=== PATIENT | male | born 1985 | race Caucasian/White ===

== ENCOUNTER 2016-03-12 12:57 | Inpatient (IN) | payer OTHER ==
[~2016-03-12] VITALS: Ht 180.3 cm; Wt 127.7 kg
[2016-03-12 12:55] VITALS: O2SAT 97
[2016-03-12] MEDS ORDERED: MORPHINE SULFATE 8 MG/ML INJ ONE ×2 (13:04→15:01)
[2016-03-12] MEDS ORDERED: ONDANSETRON HCL 4 MG/2 ML VIAL ONE (13:05)
[2016-03-12] MEDS ORDERED: DIPHTH/TETANUS/ACEL PERTUSSIS (BOOSTER) 0.5 ML VIAL/PFS IM ONE (13:05)
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
[2016-03-12 13:29] LABS: I-STAT POTASSIUM 4.2 MMOL/L (3.5-4.9)
[2016-03-12] MEDS ORDERED: SODIUM CHLOR 0.9% 1000 ML INJ 1,000 ML IV SCH (13:31)
[2016-03-12] MEDS ORDERED: ACETAMINOPHEN 325 MG TAB PO PRN (13:45)
[2016-03-12] MEDS ORDERED: ENALAPRILAT 1.25 MG/ML VIAL IV PRN (13:45)
[2016-03-12] MEDS ORDERED: ONDANSETRON HCL 4 MG/2 ML VIAL IV PRN (13:45)
[2016-03-12] MEDS ORDERED: CHLORHEXIDINE GLUCONATE 2 % 1 PACK (2 CLOTHS) TOP PRN (13:45)
[2016-03-12] MEDS ORDERED: SODIUM CHLORIDE 0.9% FLUSH 5 ML FLUSH IVF PRN (13:45)
[2016-03-12] MEDS ORDERED: MISCELLANEOUS NURSING INFORMATION XX SCH (13:45)
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
[2016-03-12] MEDS: PANTOPRAZOLE SODIUM 40 MG VIAL IVP SCH (14:00)
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
[2016-03-12] MEDS ORDERED: MIDAZOLAM HCL 5 MG/ML VIAL (1 ML) IV ONE (15:00)
[2016-03-12] MEDS ORDERED: MORPHINE SULFATE 8 MG/ML INJ IV PUSH ONE (15:00)
[2016-03-12] MEDS ORDERED: MIDAZOLAM HCL 5 MG/ML VIAL (1 ML) ONE (15:01)
--- NOTE | 2016-03-12 15:13 | HHI.HP ---
General Surgery H&P H&P dictated Femi Mcdaniel MD Mar 12, 2016 15:13
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
[2016-03-12] MEDS ORDERED: IOHEXOL 350 MG/ML 10 ML VIAL (for RAD DIAG) IV ONE (15:52)
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
[2016-03-12 16:00] VITALS: PULSE 64
[2016-03-12] MEDS ORDERED: SODIUM CHLOR 0.9% 1000 ML INJ 1,000 ML IV ONE ×2 (16:00)
[2016-03-12] MEDS: MULTIVITAMIN INJ 10 ML, THIAMINE INJ 100 MG, FOLIC ACID INJ 1 MG in SODIUM CHLORID 0.9%... IV SCH (16:00)
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
[2016-03-12] MEDS ORDERED: LORazepam 2 MG/ML VIAL IV PUSH PRN (16:30)
--- NOTE | 2016-03-12 16:38 | RADRPT ---
EXAM DATE/TIME: 03/12/2016 16:10 [facility] COMPARISON: CHEST SINGLE AP, March 12, 2016, 12:51. INDICATIONS : Central line placement. MEDICAL HISTORY : None. SURGICAL HISTORY : None. ENCOUNTER: Initial ACUITY: 1 day PAIN SCORE: Non-responsive. LOCATION: Bilateral chest FINDINGS: Interval placement of left subclavian catheter with the tip projected at the cavoatrial junction. No evidence of pneumothorax on this supine film. The lungs are symmetrically aerated and clear. The h eart is normal size. CONCLUSION: Central line in good position. No evidence of pneumothorax. Seb Jarvis MD on March 12, 2016 at 16:36 Board Certified Radiologist. This report was verified electronically.
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
[2016-03-12] MEDS ORDERED: fentaNYL DRIP 250 ML IV PRN (16:45)
[2016-03-12] MEDS: THIAMINE INJ 100 MG in SODIUM CHLORIDE 0.9% INJ 100 ML IV SCH (16:45)
[2016-03-12] MEDS: SODIUM CHLOR 0.9% 1000 ML INJ 1,000 ML IV SCH (17:00)
[2016-03-12 18:00] VITALS: PULSE 75
[2016-03-12] MEDS: DEXMEDETOMIDINE INJ 50 ML IV PRN ×3 (18:02→20:17)
[2016-03-12] MEDS ORDERED: KETOROLAC TROMETHAMINE 30 MG/ML (IVP) VIAL IV PUSH SCH (18:30)
[2016-03-12 18:51] LABS: AUTOMATED NEUTROPHIL # 8.9 TH/MM3 (1.8-7.7); BASOPHIL % 0.4 % (0.0-2.0); EOSINOPHIL # 0.1 TH/MM3 (0-0.4); EOSINOPHIL % 0.6 % (0.0-4.0); HEMATOCRIT 41.8 % (39.0-51.0); HEMO FLAGS DIFF FINAL; LYMPH % 19.7 % (9.0-44.0); LYMPHOCYTE # 2.4 TH/MM3 (1.0-4.8); MEAN CELL VOLUME 91.3 FL (80.0-100.0); MEAN CORPUSCULAR HEMOGLOBIN 30.8 PG (27.0-34.0); MEAN CORPUSCULAR HGB CONC 33.7 % (32.0-36.0); MONO % 7.7 % (0.0-8.0); NEUT % 71.6 % (16.0-70.0); PLATELET COUNT 190 TH/MM3 (150-450); RED BLOOD COUNT 4.58 MIL/MM3 (4.50-5.90); RED CELL DISTRIBUTION WIDTH 13.1 % (11.6-17.2); WHITE BLOOD COUNT 12.4 TH/MM3 (4.0-11.0)
[2016-03-12 19:11] LABS: APTT (PATIENT) 25.5 SEC (24.3-30.1); PROTHROMBIN TIME - PATIENT 10.8 SEC (9.8-11.6)
[2016-03-12 19:20] LABS: AMPHETAMINE, URINE NEG (NEG); BARBITURATES, URINE NEG (NEG); COCAINE, URINE NEG (NEG)
[2016-03-12 20:00] VITALS: PULSE 70
[2016-03-12] MEDS: DOCUSATE SODIUM 100 MG CAP PO SCH (20:16)
[2016-03-12] MEDS: CYCLOBENZAPRINE HCL 10 MG TAB PO SCH (20:16)
[2016-03-12 20:52] VITALS: O2SAT 93
[2016-03-12 22:00] VITALS: PULSE 66
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
[2016-03-13] VITALS (14 sets, daily range): BP systolic 116; BP diastolic 59; PULSE 48–70; RESP 24; TEMP 98.3; O2SAT 97–98
[2016-03-13] MEDS: SODIUM CHLOR 0.9% 1000 ML INJ 1,000 ML IV SCH ×3 (03:00→20:24)
[2016-03-13] MEDS: CHLORHEXIDINE GLUCONATE 2 % 1 PACK (2 CLOTHS) TOP SCH (03:20)
[2016-03-13] MEDS: CYCLOBENZAPRINE HCL 10 MG TAB PO SCH ×3 (04:06→20:22)
[2016-03-13 05:33] LABS: AUTOMATED NEUTROPHIL # 6.6 TH/MM3 (1.8-7.7); BASOPHIL % 0.5 % (0.0-2.0); EOSINOPHIL % 0.4 % (0.0-4.0); HEMATOCRIT 42.9 % (39.0-51.0); HEMO FLAGS DIFF FINAL; LYMPH % 23.5 % (9.0-44.0); LYMPHOCYTE # 2.3 TH/MM3 (1.0-4.8); MEAN CELL VOLUME 90.2 FL (80.0-100.0); MEAN CORPUSCULAR HEMOGLOBIN 31.7 PG (27.0-34.0); MEAN CORPUSCULAR HGB CONC 35.1 % (32.0-36.0); MONO % 9.6 % (0.0-8.0); PLATELET COUNT 174 TH/MM3 (150-450); RED BLOOD COUNT 4.76 MIL/MM3 (4.50-5.90)
[2016-03-13 05:44] LABS: ALKALINE PHOSPHATASE 57 U/L (45-117); ALT (GPT) 23 U/L (12-78); ANION GAP 6 MEQ/L (5-15); AST (GOT) 44 U/L (15-37); BICARBONATE 27.2 MEQ/L (21.0-32.0); BLOOD UREA NITROGEN 11 MG/DL (7-18); CHLORIDE 108 MEQ/L (98-107); GLOMERULAR FILTRATION RATE 54 ML/MIN (>89); POTASSIUM 4.1 MEQ/L (3.5-5.1); SODIUM (NA) 141 MEQ/L (136-145); TOTAL BILIRUBIN ADULT 0.7 MG/DL (0.2-1.0)
--- NOTE | 2016-03-13 06:04 | RADRPT ---
EXAM DATE/TIME: 03/13/2016 05:21 [facility] COMPARISON: CHEST SINGLE AP, March 12, 2016, 16:10. INDICATIONS : Shortness of breath, possible pulmonary disease. MEDICAL HISTORY : None. SURGICAL HISTORY : None. ENCOUNTER: Subsequent ACUITY: 2 days PAIN SCORE: Non-responsive. LOCATION: Bilateral chest FINDINGS: A single view of the chest demonstrates the lungs to be symmetrically aerated without evidence of mas s, infiltrate or effusion. The cardiomediastinal contours are unremarkable. Osseous structures are intact. Left subclavian central venous catheter tip overlies the expected location of the SVC. CONCLUSION: No acute disease. Tien Doe MD on March 13, 2016 at 6:02 Board Certified Radiologist. This report was verified electronically.
[2016-03-13] MEDS: DOCUSATE SODIUM 100 MG CAP PO SCH ×2 (11:07→20:22)
[2016-03-13] MEDS: KETOROLAC TROMETHAMINE 30 MG/ML (IVP) VIAL IV PUSH SCH ×2 (11:09→17:55)
[2016-03-13] MEDS: THIAMINE INJ 100 MG in SODIUM CHLORIDE 0.9% INJ 100 ML IV SCH (11:09)
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
[2016-03-13] MEDS: PANTOPRAZOLE SODIUM 40 MG VIAL IVP SCH (13:04)
[2016-03-13] MEDS: GABAPENTIN 300 MG CAP PO SCH ×2 (13:04→17:55)
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
--- NOTE | 2016-03-13 14:46 | HHI.GIFU ---
Objective Vitals I&O Vital Signs Date Time Temp Pulse Resp B/P Pulse Ox O2 Delivery O2 Flow Rate FiO2 03/13/16 14:00 55 03/13/16 12:00 52 03/13/16 10:00 70 03/13/16 08:00 48 03/13/16 07:00 99 Room Air 03/13/16 06:00 52 03/13/16 04:00 58 03/13/16 02:00 58 03/13/16 00:00 62 03/12/16 22:00 66 03/12/16 20:52 93 Nasal Cannula 6.00 03/12/16 20:00 70 03/12/16 19:00 98 Room Air 03/12/16 18:00 75 03/12/16 16:00 64 I/O 03/12/16 03/12/16 03/12/16 03/13/16 03/13/16 03/13/16 07:00 15:00 23:00 07:00 15:00 23:00 Intake Total 2730 ml 939 ml 1861 ml Output Total 800 ml 650 ml 900 ml Balance 1930 ml 289 ml 961 ml Intake Oral 100 ml 350 ml 1200 ml IV Total 2630 ml 589 ml 661 ml Output Urine Total 800 ml 650 ml 900 ml # Voids 1 # Bowel Movements 0 0 0 Laboratory Laboratory Tests Test 03/12/16 03/12/16 03/12/16 03/12/16 16:00 17:30 19:45 19:47 Urine Opiates Screen NEG Urine Barbiturates Screen NEG Urine Amphetamines Screen NEG Urine Benzodiazepines Screen NEG Urine Cocaine Screen NEG Urine Cannabinoids Screen POS White Blood Count 12.4 Red Blood Count 4.58 Hemoglobin 14.1 Hematocrit 41.8 Mean Corpuscular Volume 91.3 Mean Corpuscular Hemoglobin 30.8 Mean Corpuscular Hemoglobin 33.7 Concent Red Cell Distribution Width 13.1 Platelet Count 190 Mean Platelet Volume 8.7 Neutrophils (%) (Auto) 71.6 Lymphocytes (%) (Auto) 19.7 Monocytes (%) (Auto) 7.7 Eosinophils (%) (Auto) 0.6 Basophils (%) (Auto) 0.4 Neutrophils # (Auto) 8.9 Lymphocytes # (Auto) 2.4 Monocytes # (Auto) 1.0 Eosinophils # (Auto) 0.1 Basophils # (Auto) 0.0 CBC Comment DIFF FINAL Differential Comment Prothrombin Time 10.8 Prothromb Time International 1.0 Ratio Activated Partial 25.5 Thromboplast Time Blood Type A POSITIVE Antibody Screen NEGATIVE Nasal Screen MRSA (PCR) NEGATIVE Test 03/13/16 03/13/16 05:08 13:32 White Blood Count 10.0 Red Blood Count 4.76 Hemoglobin 15.1 Hematocrit 42.9 Mean Corpuscular Volume 90.2 Mean Corpuscular Hemoglobin 31.7 Mean Corpuscular Hemoglobin 35.1 Concent Red Cell Distribution Width 13.0 Platelet Count 174 Mean Platelet Volume 8.6 Neutrophils (%) (Auto) 66.0 Lymphocytes (%) (Auto) 23.5 Monocytes (%) (Auto) 9.6 Eosinophils (%) (Auto) 0.4 Basophils (%) (Auto) 0.5 Neutrophils # (Auto) 6.6 Lymphocytes # (Auto) 2.3 Monocytes # (Auto) 1.0 Eosinophils # (Auto) 0.0 Basophils # (Auto) 0.0 CBC Comment DIFF FINAL Differential Comment Sodium Level 141 Potassium Level 4.1 Chloride Level 108 Carbon Dioxide Level 27.2 Anion Gap 6 Blood Urea Nitrogen 11 Creatinine 1.16 Estimat Glomerular Filtration 54 Rate Random Glucose 90 Calcium Level 8.0 Total Bilirubin 0.7 Aspartate Amino Transf 44 (AST/SGOT) Alanine Aminotransferase 23 (ALT/SGPT) Alkaline Phosphatase 57 Total Protein 6.6 Albumin 3.4 Carcinoembryonic Antigen 0.4 Assessment and Plan Physician Comments seen, examined full consult dictated colonoscopy will be scheduled next week patient would like to wait until he can get out of bed and can ambulate to go to the bathroom Phuong Segovia MD Mar 13, 2016 14:46 Assessment and Plan Physician Comments seen, examined colonoscopy will be scheduled next week patient would like to wait until he can get out of bed and can ambulate to go to the bathroom Phuong Segovia MD Mar 13, 2016 14:46
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
[2016-03-13] MEDS: MULTIVITAMIN INJ 10 ML, THIAMINE INJ 100 MG, FOLIC ACID INJ 1 MG in SODIUM CHLORID 0.9%... IV SCH (16:43)
--- NOTE | 2016-03-13 18:01 | EKG ---
Date Performed: 03/13/2016 Time Performed: 12:16:54 PTAGE: 89 years EKG: Sinus bradycardia. Normal ECG except for rate NO PREVIOUS TRACING DOCTOR: Perry Narayanan Interpretating Date/Time 03/13/2016 17:59:09
[2016-03-13] MEDS: HYDROmorphone HCL PF 1 MG/ML VIAL IV PUSH PRN (20:40)
[2016-03-14] VITALS (8 sets, daily range): BP systolic 105–122; BP diastolic 56–63; PULSE 49–65; RESP 11–18; TEMP 96.5–98.4; O2SAT 97–99
[2016-03-14] MEDS: CHLORHEXIDINE GLUCONATE 2 % 1 PACK (2 CLOTHS) TOP SCH (01:28)
[2016-03-14] MEDS: CYCLOBENZAPRINE HCL 10 MG TAB PO SCH ×3 (04:05→20:01)
[2016-03-14] MEDS: HYDROmorphone HCL PF 1 MG/ML VIAL IV PUSH PRN ×7 (04:20→21:33)
[2016-03-14 04:36] LABS: AUTOMATED NEUTROPHIL # 3.8 TH/MM3 (1.8-7.7); BASOPHIL % 0.6 % (0.0-2.0); EOSINOPHIL # 0.1 TH/MM3 (0-0.4); EOSINOPHIL % 1.8 % (0.0-4.0); HEMATOCRIT 41.7 % (39.0-51.0); HEMO FLAGS DIFF FINAL; LYMPHOCYTE # 2.3 TH/MM3 (1.0-4.8); MEAN CELL VOLUME 90.9 FL (80.0-100.0); MEAN CORPUSCULAR HEMOGLOBIN 31.1 PG (27.0-34.0); MEAN CORPUSCULAR HGB CONC 34.2 % (32.0-36.0); MONO % 11.8 % (0.0-8.0); NEUT % 53.8 % (16.0-70.0); PLATELET COUNT 155 TH/MM3 (150-450); RED BLOOD COUNT 4.58 MIL/MM3 (4.50-5.90); RED CELL DISTRIBUTION WIDTH 13.3 % (11.6-17.2); WHITE BLOOD COUNT 7.1 TH/MM3 (4.0-11.0)
[2016-03-14 04:50] LABS: ALT (GPT) 21 U/L (12-78); ANION GAP 4 MEQ/L (5-15); AST (GOT) 26 U/L (15-37); BICARBONATE 27.6 MEQ/L (21.0-32.0); BLOOD UREA NITROGEN 20 MG/DL (7-18); CHLORIDE 108 MEQ/L (98-107); GLOMERULAR FILTRATION RATE 54 ML/MIN (>89); POTASSIUM 4.1 MEQ/L (3.5-5.1); SODIUM (NA) 140 MEQ/L (136-145)
[2016-03-14 04:52] LABS: ALKALINE PHOSPHATASE 51 U/L (45-117); TOTAL BILIRUBIN ADULT 0.5 MG/DL (0.2-1.0)
[2016-03-14] MEDS: KETOROLAC TROMETHAMINE 30 MG/ML (IVP) VIAL IV PUSH SCH ×4 (05:26→17:26)
--- NOTE | 2016-03-14 05:39 | RADRPT ---
EXAM DATE/TIME: 03/14/2016 04:40 [facility] COMPARISON: CHEST SINGLE AP, March 13, 2016, 5:21. INDICATIONS : Shortness of breath, possible pulmonary disease. MEDICAL HISTORY : None. SURGICAL HISTORY : None. ENCOUNTER: Subsequent ACUITY: 3 days PAIN SCORE: Non-responsive. LOCATION: Bilateral chest FINDINGS: No infiltrate, effusion or pneumothorax seen. Heart size stable, upper limits of normal. Left subclavian central venous catheter again seen, tip in the superior vena cava. CONCLUSION: No change. Chas Pak MD on March 14, 2016 at 5:37 Board Certified Radiologist. This report was verified electronically.
[2016-03-14] MEDS: GABAPENTIN 300 MG CAP PO SCH ×3 (08:56→17:25)
[2016-03-14] MEDS: DOCUSATE SODIUM 100 MG CAP PO SCH ×2 (08:57→20:00)
[2016-03-14] MEDS: THIAMINE INJ 100 MG in SODIUM CHLORIDE 0.9% INJ 100 ML IV SCH (08:58)
[2016-03-14] MEDS: SODIUM CHLOR 0.9% 1000 ML INJ 1,000 ML IV SCH (08:59)
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
[2016-03-14] MEDS ORDERED: oxyCODONE/ACETAMINOPHEN 5 MG/325 MG TAB PO PRN (11:15)
[2016-03-14] MEDS: oxyCODONE/ACETAMINOPHEN 5 MG/325 MG TAB PO PRN ×3 (11:19→20:01)
[2016-03-14] MEDS: HEPARIN SODIUM - SQ 10,000 UNITS/ML VIAL SQ SCH ×2 (14:41→22:50)
[2016-03-14] MEDS: MULTIVITAMIN INJ 10 ML, THIAMINE INJ 100 MG, FOLIC ACID INJ 1 MG in SODIUM CHLORID 0.9%... IV SCH (17:25)
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
--- NOTE | 2016-03-14 18:31 | RADRPT ---
EXAM DATE/TIME: 03/14/2016 17:53 [facility] COMPARISON: CT CERVICAL SPINE W/O CONTRAST, March 12, 2016, 13:18. INDICATIONS : Neck injury, evaluate fractured. MEDICAL HISTORY : None. SURGICAL HISTORY : None. ENCOUNTER: Initial ACUITY: 1 day PAIN SCORE: 10/10 LOCATION: C6 C7 region. FINDINGS: Lower cervical spine fractures seen on CT are not as well appreciated on plain film. The cervical spi ne is relatively normally aligned without motion seen on very limited flexion and extension. CONCLUSION: No vertebral body subluxation seen on limited flexion and extension. Keegan Licona MD on March 14, 2016 at 18:17 Board Certified Radiologist. This report was verified electronically.
[2016-03-14] MEDS: FAMOTIDINE 20 MG TAB PO SCH (20:01)
[2016-03-15] VITALS: BP 106/53; PULSE 48; RESP 17; TEMP 96.6; O2SAT 97
[2016-03-15] MEDS: KETOROLAC TROMETHAMINE 30 MG/ML (IVP) VIAL IV PUSH SCH ×4 (00:05→18:42)
[2016-03-15] MEDS: oxyCODONE/ACETAMINOPHEN 5 MG/325 MG TAB PO PRN ×3 (00:05→10:28)
[2016-03-15] MEDS: HYDROmorphone HCL PF 1 MG/ML VIAL IV PUSH PRN ×5 (02:28→20:19)
[2016-03-15] MEDS: CHLORHEXIDINE GLUCONATE 2 % 1 PACK (2 CLOTHS) TOP SCH (04:00)
[2016-03-15] MEDS: CYCLOBENZAPRINE HCL 10 MG TAB PO SCH ×3 (04:54→20:20)
[2016-03-15] MEDS: HEPARIN SODIUM - SQ 10,000 UNITS/ML VIAL SQ SCH ×3 (06:21→23:09)
[2016-03-15 08:00] VITALS: BP 117/72; PULSE 44; RESP 16; TEMP 95.8; O2SAT 100
[2016-03-15 10:27] VITALS: O2SAT 98
[2016-03-15] MEDS: GABAPENTIN 300 MG CAP PO SCH ×3 (10:27→18:41)
[2016-03-15] MEDS: DOCUSATE SODIUM 100 MG CAP PO SCH ×2 (10:27→20:20)
[2016-03-15] MEDS: THIAMINE INJ 100 MG in SODIUM CHLORIDE 0.9% INJ 100 ML IV SCH (10:27)
[2016-03-15] MEDS: MAGNESIUM HYDROXIDE SUSP 30 ML CUP PO PRN (10:28)
[2016-03-15 12:00] VITALS: BP 117/58; PULSE 55; RESP 17; TEMP 97.3; O2SAT 99
[2016-03-15] MEDS ORDERED: oxyCODONE/ACETAMINOPHEN 7.5 MG/325 MG TAB PO PRN (12:15)
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
[2016-03-15] MEDS ORDERED: LACTULOSE SYRUP 20 GM/30 ML CUP PO ONE (13:45)
[2016-03-15] MEDS: oxyCODONE/ACETAMINOPHEN 7.5 MG/325 MG TAB PO PRN ×3 (15:04→23:09)
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
[2016-03-15 16:00] VITALS: BP 126/61; PULSE 51; RESP 16; TEMP 97.4; O2SAT 100
--- NOTE | 2016-03-15 16:35 | RADRPT ---
EXAM DATE/TIME: 03/15/2016 16:06 [facility] COMPARISON: No previous studies available for comparison. INDICATIONS : Neck pain, evaluate C6 and C7 fractures in fexion and extension MEDICAL HISTORY : fracture C6, C7 SURGICAL HISTORY : None. ENCOUNTER: Subsequent ACUITY: 1 month PAIN SCORE: 10/10 LOCATION: Bilateral neck FINDINGS: Flexion and extension views of the cervical spine were performed. C6 remains anteriorly subluxed on C 7 with at least one level of facet lock. The prevertebral soft tissues are normal in thickness. CONCLUSION: C6 remains anteriorly subluxed with at least one side of a locked facet. Zain Rothman MD on March 15, 2016 at 16:33 Board Certified Radiologist. This report was verified electronically.
[2016-03-15 19:00] VITALS: BP 111/62; PULSE 100; RESP 15; TEMP 98.1; O2SAT 97
[2016-03-15] MEDS: FAMOTIDINE 20 MG TAB PO SCH (20:20)
[2016-03-16 00:11] VITALS: BP 109/57; PULSE 59; RESP 16; TEMP 96.3; O2SAT 100
[2016-03-16] MEDS: HYDROmorphone HCL PF 1 MG/ML VIAL IV PUSH PRN ×3 (01:12→21:01)
[2016-03-16] MEDS: KETOROLAC TROMETHAMINE 30 MG/ML (IVP) VIAL IV PUSH SCH ×4 (01:14→18:57)
[2016-03-16] MEDS: CHLORHEXIDINE GLUCONATE 2 % 1 PACK (2 CLOTHS) TOP SCH (02:43)
[2016-03-16 04:00] VITALS: BP 99/56; PULSE 50; RESP 18; TEMP 97.1; O2SAT 100
[2016-03-16] MEDS: CYCLOBENZAPRINE HCL 10 MG TAB PO SCH ×3 (04:00→20:55)
[2016-03-16] MEDS: oxyCODONE/ACETAMINOPHEN 7.5 MG/325 MG TAB PO PRN ×5 (06:49→23:27)
[2016-03-16 08:00] VITALS: BP 106/59; PULSE 50; RESP 18; TEMP 96.9; O2SAT 94
[2016-03-16] MEDS: GABAPENTIN 300 MG CAP PO SCH ×3 (08:42→18:57)
[2016-03-16] MEDS: HEPARIN SODIUM - SQ 10,000 UNITS/ML VIAL SQ SCH ×3 (08:42→19:46)
[2016-03-16] MEDS: MAGNESIUM HYDROXIDE SUSP 30 ML CUP PO PRN ×2 (08:42→14:55)
[2016-03-16] MEDS: DOCUSATE SODIUM 100 MG CAP PO SCH ×2 (08:42→20:55)
[2016-03-16] MEDS: THIAMINE INJ 100 MG in SODIUM CHLORIDE 0.9% INJ 100 ML IV SCH (08:43)
[2016-03-16 11:54] VITALS: BP 108/89; PULSE 60; RESP 17; TEMP 98; O2SAT 99
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
[2016-03-16] MEDS ORDERED: LACTULOSE SYRUP 20 GM/30 ML CUP PO ONE (14:00)
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
[2016-03-16] MEDS ORDERED: VANCOMYCIN INJ 1,000 MG in SODIUM CHLOR 0.9% 250 ML INJ 250 ML IV ONE (15:00)
[2016-03-16] MEDS ORDERED: ceFAZolin 2 GM PREMIX 50 ML IV ONE (15:00)
[2016-03-16 16:00] VITALS: BP 111/54; PULSE 55; RESP 18; TEMP 99; O2SAT 97
[2016-03-16 19:30] VITALS: BP 127/56; PULSE 61; RESP 17; TEMP 96.9; O2SAT 99
[2016-03-16] MEDS: CHLORHEXIDINE GLUCONATE 4% SOLN 120 ML BTL TOP SCH (20:55)
[2016-03-16] MEDS: FAMOTIDINE 20 MG TAB PO SCH (20:55)
[2016-03-16] MEDS ORDERED: LACTATED RINGER'S 1000 ML IV SCH (23:45)
[2016-03-16] MEDS ORDERED: SODIUM CHLORID 0.9% 500 ML IV SCH (23:45)
[2016-03-16] MEDS ORDERED: METOPROLOL TARTRATE 25 MG TAB PO PRN (23:45)
[2016-03-16] MEDS ORDERED: INSULIN HUMAN REGULAR 1,000 UNITS/10 ML VIAL SQ PRN (23:45)
[2016-03-17] VITALS (7 sets, daily range): BP systolic 113–121; BP diastolic 54–75; PULSE 58–84; RESP 16–20; TEMP 96.2–98.8; O2SAT 95–100
[2016-03-17] MEDS: CHLORHEXIDINE GLUCONATE 2 % 1 PACK (2 CLOTHS) TOP SCH ×2 (03:48→20:20)
[2016-03-17] MEDS: HEPARIN SODIUM - SQ 10,000 UNITS/ML VIAL SQ SCH ×3 (03:48→20:19)
[2016-03-17] MEDS: CYCLOBENZAPRINE HCL 10 MG TAB PO SCH ×3 (03:48→20:17)
[2016-03-17] MEDS: HYDROmorphone HCL PF 1 MG/ML VIAL IV PUSH PRN ×3 (03:48→10:57)
[2016-03-17] MEDS: SODIUM CHLOR 0.9% 1000 ML INJ 1,000 ML IV SCH ×3 (03:49→20:20)
[2016-03-17] MEDS: NICOTINE 14 MG/24 HR PATCH TD SCH (08:10)
[2016-03-17] MEDS: DOCUSATE SODIUM 100 MG CAP PO SCH ×3 (08:17→20:18)
[2016-03-17] MEDS: GABAPENTIN 300 MG CAP PO SCH ×3 (08:17→17:20)
[2016-03-17] MEDS: THIAMINE INJ 100 MG in SODIUM CHLORIDE 0.9% INJ 100 ML IV SCH (09:00)
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
[2016-03-17] MEDS ORDERED: ceFAZolin 2 GM PREMIX 50 ML ONE (09:49)
[2016-03-17] MEDS ORDERED: THROMBIN (TOPICAL) 5,000 UNIT VIAL ONE (09:49)
[2016-03-17] MEDS ORDERED: VANCOMYCIN HCL 1000 MG VIAL ONE (09:50)
[2016-03-17] MEDS ORDERED: GELFOAM SIZE 100 ONE (09:50)
[2016-03-17] MEDS ORDERED: GENTAMICIN SULFATE 80 MG/2 ML VIAL ONE (09:50)
[2016-03-17] MEDS ORDERED: DEXAMETHASONE SOD PHOS 20 MG/5 ML VIAL ONE (09:50)
[2016-03-17] MEDS ORDERED: SODIUM CHLOR 0.9% 250 ML INJ 250 ML ONE (09:51)
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
[2016-03-17] MEDS ORDERED: ACETAMINOPHEN 1000 MG/100 ML VIAL IV ONE (11:37)
[2016-03-17] MEDS ORDERED: ARTIFICIAL TEARS OPTH OINT 3.5 APPLIC/3.5 GM TUBO ONE (11:37)
[2016-03-17] MEDS ORDERED: MIDAZOLAM HCL 2 MG/2 ML VIAL ONE (11:37)
[2016-03-17] MEDS ORDERED: fentaNYL CITRATE 250 MCG/5 ML AMP ONE ×3 (11:37→17:19)
[2016-03-17] MEDS ORDERED: KETAMINE HCL 500 MG/5 ML VIAL ONE (11:38)
[2016-03-17] MEDS ORDERED: PHENYLEPH/NS 1000 MCG/10 ML SYR IV ONE (12:00)
[2016-03-17] MEDS ORDERED: PROPOFOL 200 MG/20 ML AMP IV ONE (12:00)
[2016-03-17] MEDS ORDERED: ONDANSETRON HCL 4 MG/2 ML VIAL IV PUSH ONE (12:00)
[2016-03-17] MEDS ORDERED: ePHEDrine/NS 25 MG/5 ML SYR IV ONE (12:00)
[2016-03-17] MEDS ORDERED: LACTATED RINGER'S 1000 ML INJ 1,000 ML IV ONE (12:00)
[2016-03-17] MEDS ORDERED: SODIUM CHLORID 0.9% 500 ML INJ 500 ML IV ONE (12:00)
[2016-03-17] MEDS ORDERED: MICROFIBRILLAR COLLAGEN HEMOSTAT 70 X 35 MM BANDAGE TOPICAL ONE (13:26)
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
[2016-03-17] MEDS ORDERED: *morphine SULFATE 8 MG/ML PERIprocedure ONLY ONE ×3 (15:41→16:04)
[2016-03-17] MEDS ORDERED: DO NOT ADM ANY ANTICOAGULANT DRUGS XX PRN (15:45)
[2016-03-17] MEDS ORDERED: *MEPERIDINE 25 MG INJ VIAL PERIprocedural Use ONLY ONE (15:46)
[2016-03-17] MEDS ORDERED: ACETAMINOPHEN/HYDROcodone 325 MG/10 MG TAB PO PRN (16:00)
[2016-03-17] MEDS: DEXAMETHASONE SOD PHOS 4 MG/ML VIAL IV SCH ×2 (16:00→20:16)
[2016-03-17] MEDS ORDERED: BISACODYL 10 MG SUPP PR PRN (16:00)
[2016-03-17] MEDS ORDERED: MENTHOL LOZENGE SUCK-ON PRN (16:00)
[2016-03-17] MEDS ORDERED: CYCLOBENZAPRINE HCL 10 MG TAB PO PRN (16:00)
[2016-03-17] MEDS ORDERED: ACETAMINOPHEN 325 MG TAB PO PRN (16:00)
[2016-03-17] MEDS ORDERED: SODIUM CHLORIDE 0.9% FLUSH 5 ML FLUSH IVF PRN (16:00)
[2016-03-17] MEDS ORDERED: ONDANSETRON HCL 4 MG/2 ML VIAL IV PRN (16:00)
[2016-03-17] MEDS ORDERED: *hydrOXYzine 25 MG VIAL PERIprocedural Use ONLY IM ONE (16:05)
[2016-03-17] MEDS: NS + KCL 20 MEQ INJ 1,000 ML IV SCH ×2 (16:10→20:20)
[2016-03-17] MEDS ORDERED: *HYDROmorphone PF 1 MG VIAL PERIprocedural Use ONLY ONE ×2 (16:12→16:23)
[2016-03-17] MEDS: MORPHINE SULFATE 4 MG/ML INJ IV PUSH PRN ×2 (17:20→21:30)
--- NOTE | 2016-03-17 17:28 | RADRPT ---
EXAM DATE/TIME: 03/17/2016 12:45 [facility] COMPARISON: No previous studies available for comparison. INDICATIONS : C-Spine C6-7 fusion. MEDICAL HISTORY : None. SURGICAL HISTORY : None. ENCOUNTER: Initial ACUITY: 1 day PAIN SCORE: Non-responsive. LOCATION: Bilateral C-Spine. FINDINGS: 2 intraoperative spot images of the cervical spine. Anterior fusion hardware is seen in the lower cer vical spine. CONCLUSION: Intraoperative spot images showing anterior lower cervical spine fusion hardware. Daniel Winter MD on March 17, 2016 at 17:26 Board Certified Radiologist. This report was verified electronically.
[2016-03-17] MEDS: ceFAZolin 2 GM PREMIX 50 ML IV SCH (20:15)
[2016-03-17] MEDS: ACETAMINOPHEN/HYDROcodone 325 MG/10 MG TAB PO PRN (20:16)
[2016-03-17] MEDS: SODIUM CHLORIDE 0.9% FLUSH 5 ML FLUSH IVF SCH (20:18)
[2016-03-17] MEDS: MAGNESIUM HYDROXIDE SUSP 30 ML CUP PO PRN (20:18)
[2016-03-17] MEDS: FAMOTIDINE 20 MG TAB PO SCH (20:19)
[2016-03-17] MEDS: CHLORHEXIDINE GLUCONATE 4% SOLN 120 ML BTL TOP SCH (20:19)
[2016-03-18] MEDS: ACETAMINOPHEN/HYDROcodone 325 MG/10 MG TAB PO PRN ×3 (00:11→08:52)
[2016-03-18] MEDS: HYDROmorphone HCL PF 1 MG/ML VIAL IV PUSH PRN ×3 (02:02→10:03)
[2016-03-18] MEDS: ceFAZolin 2 GM PREMIX 50 ML IV SCH ×2 (04:19→13:18)
[2016-03-18] MEDS: DEXAMETHASONE SOD PHOS 4 MG/ML VIAL IV SCH ×4 (04:19→20:15)
[2016-03-18] MEDS: CYCLOBENZAPRINE HCL 10 MG TAB PO SCH ×3 (04:19→20:15)
[2016-03-18 04:27] VITALS: BP 117/55; PULSE 81; RESP 18; TEMP 97.8; O2SAT 96
[2016-03-18] MEDS: HEPARIN SODIUM - SQ 10,000 UNITS/ML VIAL SQ SCH ×3 (05:42→20:15)
[2016-03-18 06:25] LABS: HEMATOCRIT 37.8 % (39.0-51.0); MEAN CELL VOLUME 91.1 FL (80.0-100.0); MEAN CORPUSCULAR HEMOGLOBIN 30.8 PG (27.0-34.0); MEAN CORPUSCULAR HGB CONC 33.8 % (32.0-36.0); PLATELET COUNT 167 TH/MM3 (150-450); RED BLOOD COUNT 4.15 MIL/MM3 (4.50-5.90); RED CELL DISTRIBUTION WIDTH 13.1 % (11.6-17.2); REVIEW FLAG FINAL
[2016-03-18 06:35] LABS: BICARBONATE 26.7 MEQ/L (21.0-32.0); POTASSIUM 4.6 MEQ/L (3.5-5.1)
[2016-03-18 07:45] VITALS: O2SAT 97
[2016-03-18 08:00] VITALS: BP 117/56; PULSE 74; RESP 18; TEMP 98.7; O2SAT 97
[2016-03-18] MEDS: NICOTINE 14 MG/24 HR PATCH TD SCH (08:51)
[2016-03-18] MEDS: DOCUSATE SODIUM 100 MG CAP PO SCH ×2 (08:53→20:15)
[2016-03-18] MEDS: GABAPENTIN 300 MG CAP PO SCH ×3 (08:53→18:05)
[2016-03-18] MEDS: SODIUM CHLORIDE 0.9% FLUSH 5 ML FLUSH IVF SCH ×2 (08:54→20:15)
[2016-03-18] MEDS: THIAMINE INJ 100 MG in SODIUM CHLORIDE 0.9% INJ 100 ML IV SCH (08:54)
[2016-03-18] MEDS ORDERED: PANTOPRAZOLE SOD 40 MG DELAYED RELEASE TAB PO SCH (09:00)
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
[2016-03-18 12:00] VITALS: BP 142/65; PULSE 70; RESP 18; TEMP 97.2; O2SAT 93
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
[2016-03-18 16:00] VITALS: BP 119/63; PULSE 78; RESP 18; TEMP 97.8; O2SAT 98
[2016-03-18 20:00] VITALS: BP 137/70; PULSE 64; RESP 18; TEMP 97.4; O2SAT 98
[2016-03-18] MEDS: FAMOTIDINE 20 MG TAB PO SCH (20:15)
[2016-03-18] MEDS: NS + KCL 20 MEQ INJ 1,000 ML IV SCH (20:26)
[2016-03-19 00:28] VITALS: BP 127/66; PULSE 60; RESP 18; TEMP 97; O2SAT 98
[2016-03-19] MEDS: CYCLOBENZAPRINE HCL 10 MG TAB PO SCH ×3 (03:42→20:40)
[2016-03-19] MEDS: DEXAMETHASONE SOD PHOS 4 MG/ML VIAL IV SCH ×4 (03:42→20:40)
[2016-03-19] MEDS: HEPARIN SODIUM - SQ 10,000 UNITS/ML VIAL SQ SCH ×3 (05:42→20:40)
[2016-03-19 07:37] VITALS: BP 127/68; PULSE 51; RESP 18; TEMP 97; O2SAT 98
[2016-03-19] MEDS: THIAMINE INJ 100 MG in SODIUM CHLORIDE 0.9% INJ 100 ML IV SCH (08:57)
[2016-03-19] MEDS: NICOTINE 14 MG/24 HR PATCH TD SCH (08:58)
[2016-03-19] MEDS: DOCUSATE SODIUM 100 MG CAP PO SCH ×2 (08:58→20:40)
[2016-03-19] MEDS: GABAPENTIN 300 MG CAP PO SCH ×3 (08:58→18:26)
[2016-03-19] MEDS: SODIUM CHLORIDE 0.9% FLUSH 5 ML FLUSH IVF SCH ×2 (08:58→20:41)
[2016-03-19] MEDS: MORPHINE SULFATE 4 MG/ML INJ IV PUSH PRN ×4 (08:59→23:40)
[2016-03-19] MEDS: NS + KCL 20 MEQ INJ 1,000 ML IV SCH (09:05)
[2016-03-19 11:42] VITALS: BP 119/60; PULSE 54; RESP 16; TEMP 97.8; O2SAT 98
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
[2016-03-19 16:18] VITALS: BP 121/59; PULSE 77; RESP 17; TEMP 97.1; O2SAT 97
--- NOTE | 2016-03-19 19:29 | HHI.NSPN ---
History Interval History Postop C6 7 ACDF for fracture subluxation-central cord syndrome Exam Results Vital Signs Date Time Temp Pulse Resp B/P Pulse Ox O2 Delivery O2 Flow Rate FiO2 03/19/16 16:18 97.1 77 17 121/59 97 03/18/16 07:45 21 03/17/16 17:10 Nasal Cannula 2.00 Intake and Output 03/18/16 03/18/16 03/19/16 08:00 16:00 00:00 Intake Total 1142 ml 935 ml 650 ml Output Total 10 ml 10 ml 5 ml Balance 1132 ml 925 ml 645 ml Physical Examination Mr. Giles alert, awake and oriented to time, place and person. Speech is fluent. Follows commands well. Cranial nerve examination demonstrates the pupils to be equal, round, and reactive to light. Facial motor are normal. Other cranial nerves are grossly intact. Neck is immobilized with [place] J collar. Wound with dry dressing, SARITHA drain in place min serosanguineous drainage Motor: Motor function 5/5 in all major flexion and extension groups of the upper and lower extremities. 4/5 bilateral hand intrinsics. Still appears slower in the uppers, right>left. Complaining of paresthesias and dysesthesia in the right greater than left distal upper extremity Hoffmanns sign is negative. Gait: slow and cautious but ambulating fairly well without assistive devices Medical Decision Making Impression and Plan Impression: Stable neurologic function following C6 7 ACDF for fracture subluxation. Stable findings consistent with central cord syndrome Plan: Discussed with the patient. Discontinued neck drain Continue therapy Continue cervical collar Raúl Riojas MD Mar 19, 2016 19:29
[2016-03-19] MEDS: FAMOTIDINE 20 MG TAB PO SCH (20:40)
[2016-03-19 20:45] VITALS: BP 119/56; PULSE 67; RESP 18; TEMP 98.2; O2SAT 97
[2016-03-20 00:30] VITALS: BP 130/60; PULSE 65; RESP 18; TEMP 97.2; O2SAT 97
[2016-03-20] MEDS: DEXAMETHASONE SOD PHOS 4 MG/ML VIAL IV SCH ×4 (03:06→22:17)
[2016-03-20] MEDS: CYCLOBENZAPRINE HCL 10 MG TAB PO SCH ×3 (03:06→20:01)
[2016-03-20] MEDS: MORPHINE SULFATE 4 MG/ML INJ IV PUSH PRN ×5 (03:06→22:17)
[2016-03-20] MEDS: HEPARIN SODIUM - SQ 10,000 UNITS/ML VIAL SQ SCH ×3 (05:59→22:00)
[2016-03-20 07:45] VITALS: BP 115/62; PULSE 53; RESP 18; TEMP 96.5; O2SAT 96
[2016-03-20] MEDS: DOCUSATE SODIUM 100 MG CAP PO SCH ×2 (09:29→20:01)
[2016-03-20] MEDS: GABAPENTIN 300 MG CAP PO SCH ×3 (09:29→18:03)
[2016-03-20] MEDS: THIAMINE INJ 100 MG in SODIUM CHLORIDE 0.9% INJ 100 ML IV SCH (09:30)
[2016-03-20] MEDS: NICOTINE 14 MG/24 HR PATCH TD SCH (09:30)
[2016-03-20] MEDS: SODIUM CHLORIDE 0.9% FLUSH 5 ML FLUSH IVF SCH ×2 (09:31→20:02)
[2016-03-20 11:43] VITALS: BP 125/73; PULSE 53; RESP 18; TEMP 97.5; O2SAT 96
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
--- NOTE | 2016-03-20 14:01 | HHI.NSPN ---
History Interval History Postop C6 7 ACDF for fracture subluxation-central cord syndrome Exam Results Vital Signs Date Time Temp Pulse Resp B/P Pulse Ox O2 Delivery O2 Flow Rate FiO2 03/20/16 11:43 97.5 53 18 125/73 96 03/18/16 07:45 21 03/17/16 17:10 Nasal Cannula 2.00 Intake and Output 03/19/16 03/19/16 03/20/16 08:00 16:00 00:00 Intake Total 700 ml 720 ml 480 ml Output Total 0 ml 10 ml Balance 700 ml 720 ml 470 ml Physical Examination Mr. Giles alert, awake and oriented to time, place and person. Speech is fluent. Follows commands well. Cranial nerve examination demonstrates the pupils to be equal, round, and reactive to light. Facial motor are normal. Other cranial nerves are grossly intact. Neck is immobilized with [place] J collar. Wound with dry dressing Motor: Motor function 5/5 in all major flexion and extension groups of the upper and lower extremities. 4/5 bilateral hand intrinsics. Still appears slower in the uppers, right>left. Positive paresthesias and dysesthesia in the right greater than left distal upper extremity Hoffmanns sign is negative. Gait: slow and cautious but ambulating fairly well without assistive devices Medical Decision Making Impression and Plan Impression: Stable neurologic function following C6 7 ACDF for fracture subluxation. Stable findings consistent with central cord syndrome Plan: Discussed with the patient. Continue gabapentin for her upper extremity dysesthesia Continue therapy Continue cervical collar Raúl Riojas MD Mar 20, 2016 14:01
[2016-03-20] MEDS ORDERED: PEG (High)/E-LYTE SOLN 4000 ML BTL PO ONE (16:00)
[2016-03-20 17:10] VITALS: BP 132/76; PULSE 59; RESP 18; TEMP 95.8; O2SAT 99
[2016-03-20] MEDS: FAMOTIDINE 20 MG TAB PO SCH (20:00)
[2016-03-20 20:17] VITALS: BP 126/66; PULSE 60; RESP 18; TEMP 97.2; O2SAT 96
[2016-03-21] VITALS (8 sets, daily range): BP systolic 116–144; BP diastolic 56–81; PULSE 50–60; RESP 16–19; TEMP 95.5–98.4; O2SAT 97–99
[2016-03-21] MEDS: CYCLOBENZAPRINE HCL 10 MG TAB PO SCH ×3 (04:09→19:57)
[2016-03-21] MEDS: DEXAMETHASONE SOD PHOS 4 MG/ML VIAL IV SCH ×4 (04:09→19:57)
[2016-03-21] MEDS: MORPHINE SULFATE 4 MG/ML INJ IV PUSH PRN ×5 (04:09→22:45)
[2016-03-21 04:41] LABS: HEMATOCRIT 36.8 % (39.0-51.0); MEAN CELL VOLUME 90.6 FL (80.0-100.0); MEAN CORPUSCULAR HEMOGLOBIN 31.2 PG (27.0-34.0); MEAN CORPUSCULAR HGB CONC 34.4 % (32.0-36.0); PLATELET COUNT 164 TH/MM3 (150-450); RED BLOOD COUNT 4.06 MIL/MM3 (4.50-5.90); RED CELL DISTRIBUTION WIDTH 13.1 % (11.6-17.2); REVIEW FLAG FINAL; WHITE BLOOD COUNT 9.3 TH/MM3 (4.0-11.0)
[2016-03-21 05:07] LABS: BICARBONATE 29.3 MEQ/L (21.0-32.0)
[2016-03-21] MEDS: GABAPENTIN 300 MG CAP PO SCH ×3 (08:24→17:20)
[2016-03-21] MEDS: SODIUM CHLORIDE 0.9% FLUSH 5 ML FLUSH IVF SCH ×2 (08:25→19:57)
[2016-03-21] MEDS: NICOTINE 14 MG/24 HR PATCH TD SCH (08:25)
[2016-03-21] MEDS: THIAMINE INJ 100 MG in SODIUM CHLORIDE 0.9% INJ 100 ML IV SCH (08:25)
[2016-03-21] MEDS: DOCUSATE SODIUM 100 MG CAP PO SCH ×2 (08:33→19:58)
[2016-03-21] MEDS ORDERED: PROPOFOL 200 MG/20 ML AMP IV ONE (11:14)
[2016-03-21] MEDS ORDERED: PEG (High)/E-LYTE SOLN 4000 ML BTL PO ONE (11:30)
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
[2016-03-21] MEDS ORDERED: OXYC-392 PO (14:55)
[2016-03-21] MEDS: FAMOTIDINE 20 MG TAB PO SCH (19:56)
[2016-03-22] VITALS (10 sets, daily range): BP systolic 101–144; BP diastolic 52–78; PULSE 46–78; RESP 10–16; TEMP 97.4–98.3; O2SAT 95–99
--- NOTE | 2016-03-22 00:45 | RADRPT ---
EXAM DATE/TIME: 03/22/2016 00:34 [facility] COMPARISON: No previous studies available for comparison. INDICATIONS : Left elbow pain. MEDICAL HISTORY : None. SURGICAL HISTORY : None. ENCOUNTER: Initial ACUITY: 1 week PAIN SCORE: 4/10 LOCATION: Left elbow. FINDINGS: Multiple view examination of the left elbow demonstrates no soft tissue swelling, joint effusion, or fracture. The osseous structures are in normal alignment. Bony mineralization is normal. CONCLUSION: No acute disease. Tien Doe MD on March 22, 2016 at 0:43 Board Certified Radiologist. This report was verified electronically.
[2016-03-22] MEDS: MORPHINE SULFATE 4 MG/ML INJ IV PUSH PRN ×6 (02:20→14:08)
--- NOTE | 2016-03-22 02:48 | RADRPT ---
EXAM DATE/TIME: 03/22/2016 02:29 This report includes an Addendum and supersedes previous reports for this exam. [facility] COMPARISON: CT CERVICAL SPINE W/O CONTRAST, March 12, 2016, 13:18. INDICATIONS : Fall tonight. Post op cervical fusion. RADIATION DOSE: 33.94 CTDIvol (mGy) MEDICAL HISTORY : None SURGICAL HISTORY : None. ENCOUNTER: Initial ACUITY: 1 day PAIN SCALE: 10/10 LOCATION: neck TECHNIQUE: Volumetric scanning of the cervical spine was performed. Multiplanar reconstructions in the sagittal, coronal and oblique axial planes were performed. Using automated exposure control and adjustment o f the mA and/or kV according to patient size, radiation dose was kept as low as reasonably achievable to obtain optimal diagnostic quality images. FINDINGS: The patient has undergone interval anterior cervical discectomy and intervertebral fusion at C6-7. Th ere is grade 1 anterolisthesis of C6 on C7 of approximately 4 mm. There is widening of the interspino us process distance at C6-7 with a perched articular facet on the left. Reidentified is a fracture th rough the superior articular facet of C7 on the right with increased distraction of the fracture frag ments seen. There is a fracture of the right C6 and left C6 and right C7 transverse processes. CONCLUSION: Interval development of a perched articular facet at C6-7 on the left. Multiple fractures are again s een. Grade 1 anterolisthesis of C6 on C7 with interval ACDF at this level. Tien Doe MD on March 22, 2016 at 2:43 Board Certified Radiologist. This report was verified electronically. ADDENDUM: The findings were called to the floor at 2:53 AM on January 19, 2017 and the results were discussed w ith the nurse taking care of the patient. Tien Doe MD on March 22, 2016 at 2:53 Board Certified Radiologist. This report was verified electronically.
[2016-03-22] MEDS: CYCLOBENZAPRINE HCL 10 MG TAB PO SCH ×3 (03:57→19:57)
[2016-03-22] MEDS: DEXAMETHASONE SOD PHOS 4 MG/ML VIAL IV SCH ×4 (03:57→21:30)
[2016-03-22] MEDS: DOCUSATE SODIUM 100 MG CAP PO SCH ×2 (08:20→19:58)
[2016-03-22] MEDS: GABAPENTIN 300 MG CAP PO SCH ×2 (08:20→12:05)
[2016-03-22] MEDS: SODIUM CHLORIDE 0.9% FLUSH 5 ML FLUSH IVF SCH ×2 (08:20→19:58)
[2016-03-22] MEDS: THIAMINE INJ 100 MG in SODIUM CHLORIDE 0.9% INJ 100 ML IV SCH (08:49)
[2016-03-22] MEDS: NICOTINE 14 MG/24 HR PATCH TD SCH ×2 (08:49→09:40)
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
[2016-03-22] MEDS ORDERED: ceFAZolin 2 GM PREMIX 50 ML IV SCH (11:30)
[2016-03-22] MEDS ORDERED: VANCOMYCIN INJ 1,000 MG in SODIUM CHLOR 0.9% 250 ML INJ 250 ML IV SCH (11:30)
[2016-03-22] MEDS ORDERED: HYDROmorphone HCL PF 1 MG/ML VIAL IV PRN (15:30)
[2016-03-22] MEDS ORDERED: NALOXONE HCL 0.4 MG/ML AMP IV PRN ×2 (17:45)
[2016-03-22] MEDS: PCA - TOTAL MG DILAUDID DELIVERED PER SHIFT OTHER SCH ×2 (17:45→22:57)
[2016-03-22] MEDS ORDERED: Post-op Orders (for Pharmacy) MISC XX ONE (17:45)
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
[2016-03-22] MEDS: FAMOTIDINE 20 MG TAB PO SCH (19:58)
[2016-03-22] MEDS: HYDROmorphone HCL PCA 6 MG/30 ML IV SCH (20:03)
[2016-03-23] VITALS (8 sets, daily range): BP systolic 107–164; BP diastolic 55–92; PULSE 42–101; RESP 12–20; TEMP 97.7–98.4; O2SAT 99–100
[2016-03-23] MEDS: HYDROmorphone HCL PCA 6 MG/30 ML IV SCH ×2 (00:01→06:27)
[2016-03-23 04:02] LABS: HEMATOCRIT 40.3 % (39.0-51.0); MEAN CELL VOLUME 90.2 FL (80.0-100.0); MEAN CORPUSCULAR HEMOGLOBIN 31.3 PG (27.0-34.0); MEAN CORPUSCULAR HGB CONC 34.7 % (32.0-36.0); PLATELET COUNT 216 TH/MM3 (150-450); RED BLOOD COUNT 4.46 MIL/MM3 (4.50-5.90); RED CELL DISTRIBUTION WIDTH 13.2 % (11.6-17.2); REVIEW FLAG FINAL; WHITE BLOOD COUNT 14.6 TH/MM3 (4.0-11.0)
[2016-03-23 04:26] LABS: BICARBONATE 26.6 MEQ/L (21.0-32.0); MAGNESIUM 2.1 MG/DL (1.5-2.5); POTASSIUM 4.6 MEQ/L (3.5-5.1)
[2016-03-23] MEDS: DEXAMETHASONE SOD PHOS 4 MG/ML VIAL IV SCH ×4 (05:56→22:13)
[2016-03-23] MEDS: CYCLOBENZAPRINE HCL 10 MG TAB PO SCH (05:56)
[2016-03-23] MEDS: PCA - TOTAL MG DILAUDID DELIVERED PER SHIFT OTHER SCH ×3 (05:57→22:19)
[2016-03-23] MEDS ORDERED: VANCOMYCIN HCL 1000 MG VIAL ONE (07:06)
[2016-03-23] MEDS ORDERED: GENTAMICIN SULFATE 80 MG/2 ML VIAL ONE (07:07)
[2016-03-23] MEDS ORDERED: GELFOAM SIZE 100 ONE (07:07)
[2016-03-23] MEDS ORDERED: SODIUM CHLOR 0.9% 250 ML INJ 250 ML ONE (07:07)
[2016-03-23] MEDS ORDERED: THROMBIN (TOPICAL) 5,000 UNIT VIAL ONE ×2 (07:13→10:09)
[2016-03-23] MEDS ORDERED: EPINEPHrine HCL (1:10,000) 1 MG/10 ML SYRINGE ONE (07:38)
[2016-03-23] MEDS ORDERED: LIDOCAINE HCL 2% 100 MG/5 ML SYRINGE ONE (07:38)
[2016-03-23] MEDS ORDERED: ATROPINE SULFATE 1 MG/10 ML SYRINGE ONE (07:38)
[2016-03-23] MEDS ORDERED: ACETAMINOPHEN 1000 MG/100 ML VIAL IV ONE (08:29)
[2016-03-23] MEDS ORDERED: MIDAZOLAM HCL 2 MG/2 ML VIAL ONE ×2 (08:29→16:08)
[2016-03-23] MEDS ORDERED: ARTIFICIAL TEARS OPTH OINT 3.5 APPLIC/3.5 GM TUBO ONE (08:29)
[2016-03-23] MEDS ORDERED: fentaNYL CITRATE 250 MCG/5 ML AMP ONE ×2 (08:30→16:09)
[2016-03-23] MEDS: NICOTINE 14 MG/24 HR PATCH TD SCH (09:00)
[2016-03-23] MEDS: THIAMINE INJ 100 MG in SODIUM CHLORIDE 0.9% INJ 100 ML IV SCH (09:00)
[2016-03-23] MEDS: DOCUSATE SODIUM 100 MG CAP PO SCH ×2 (09:00→19:52)
[2016-03-23] MEDS ORDERED: ACETAMINOPHEN 325 MG TAB PO PRN (10:30)
[2016-03-23] MEDS ORDERED: ACETAMINOPHEN/HYDROcodone 325 MG/10 MG TAB PO PRN (10:30)
[2016-03-23] MEDS ORDERED: DEXAMETHASONE SOD PHOS 4 MG/ML VIAL IV SCH (10:30)
[2016-03-23] MEDS ORDERED: ONDANSETRON HCL 4 MG/2 ML VIAL IV PRN (10:30)
[2016-03-23] MEDS ORDERED: SODIUM CHLORIDE 0.9% FLUSH 5 ML FLUSH IVF PRN (10:30)
[2016-03-23] MEDS ORDERED: MENTHOL LOZENGE SUCK-ON PRN (10:30)
[2016-03-23] MEDS ORDERED: BISACODYL 10 MG SUPP PR PRN (10:30)
[2016-03-23] MEDS ORDERED: PROPOFOL 200 MG/20 ML AMP IV ONE (12:23)
[2016-03-23] MEDS ORDERED: LACTATED RINGER'S 1000 ML INJ 2,000 ML IV ONE (12:23)
[2016-03-23] MEDS ORDERED: SODIUM CHLORID 0.9% 500 ML INJ 500 ML IV ONE (12:23)
[2016-03-23] MEDS ORDERED: ONDANSETRON HCL 4 MG/2 ML VIAL IV PUSH ONE (12:23)
[2016-03-23] MEDS ORDERED: NEOSTIGMINE METHYLSULFATE 10 MG/10 ML VIAL IV PUSH ONE (12:23)
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
[2016-03-23] MEDS ORDERED: HYDROmorphone HCL PF 1 MG/ML VIAL ONE (16:00)
[2016-03-23] MEDS ORDERED: *MEPERIDINE 25 MG INJ VIAL PERIprocedural Use ONLY ONE (16:09)
[2016-03-23] MEDS ORDERED: MORPHINE SULFATE 4 MG/ML INJ ONE (16:09)
[2016-03-23] MEDS ORDERED: *hydrOXYzine 25 MG VIAL PERIprocedural Use ONLY IM ONE (16:23)
[2016-03-23] MEDS: NS + KCL 20 MEQ INJ 1,000 ML IV SCH (16:30)
--- NOTE | 2016-03-23 16:38 | RADRPT ---
EXAM DATE/TIME: 03/23/2016 11:21 [facility] COMPARISON: SPINE CERVICAL LTD (AP[facility]LAT), March 17, 2016, 12:45. INDICATIONS : Cervical fusion, C6-7. MEDICAL HISTORY : None. SURGICAL HISTORY : None. ENCOUNTER: Subsequent ACUITY: 1 day PAIN SCORE: Non-responsive. LOCATION: Neck. FINDINGS: The intraoperative films are very limited. Anterior cervical fusion has been performed within the lo wer cervical spine. Hardware appears to be in good position. Lateral cervical spine film including the entire cervical spine would be helpful to confirm the exact level of the fusion hardware. This ap pears to be at the C6-7 level on these limited films. CONCLUSION: Status post anterior cervical fusion within the lower cervical spine as described above. Dedicated l ateral cervical spine film including the entire cervical spine would be helpful to confirm the exact level of fusion. The limited films suggest that this fusion hardware is at C6 and C7. Mario Mast MD on March 23, 2016 at 16:25 Board Certified Radiologist. This report was verified electronically.
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
[2016-03-23] MEDS ORDERED: LORazepam 2 MG/ML VIAL IV ONE (16:45)
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
--- NOTE | 2016-03-23 18:54 | RADRPT ---
EXAM DATE/TIME: 03/23/2016 16:09 [facility] COMPARISON: No previous studies available for comparison. INDICATIONS : Evaluate cervical stability. Halo placement. MEDICAL HISTORY : None. SURGICAL HISTORY : Cervical fusion. ENCOUNTER: Subsequent ACUITY: 1 day PAIN SCORE: Non-responsive. LOCATION: Cervical. FINDINGS: Lateral view reveals anterior plate and screw fixation across C6-7. C7 not clearly visualized. Normal alignment to the level of C6. Halo present. CONCLUSION: 1. Postoperative fusion at C6-7. Keegan Licona MD on March 23, 2016 at 18:51 Board Certified Radiologist. This report was verified electronically.
[2016-03-23] MEDS: ceFAZolin 2 GM PREMIX 50 ML IV SCH (19:51)
[2016-03-23] MEDS: MORPHINE SULFATE 4 MG/ML INJ IV PUSH PRN (19:51)
[2016-03-23] MEDS: SODIUM CHLORIDE 0.9% FLUSH 5 ML FLUSH IVF SCH (19:52)
[2016-03-23] MEDS: FAMOTIDINE 20 MG TAB PO SCH (19:52)
[2016-03-23] MEDS ORDERED: DOCUSATE SODIUM 100 MG CAP PO SCH (21:00)
[2016-03-24] VITALS (11 sets, daily range): BP systolic 134–151; BP diastolic 67–85; PULSE 54–86; RESP 12–20; TEMP 96.7–99.6; O2SAT 97–100
[2016-03-24] MEDS: HYDROmorphone HCL PCA 6 MG/30 ML IV SCH ×4 (01:18→23:45)
[2016-03-24] MEDS: NS + KCL 20 MEQ INJ 1,000 ML IV SCH (01:19)
[2016-03-24] MEDS: ceFAZolin 2 GM PREMIX 50 ML IV SCH ×2 (04:32→11:22)
[2016-03-24] MEDS: DEXAMETHASONE SOD PHOS 4 MG/ML VIAL IV SCH ×4 (04:32→21:06)
[2016-03-24 05:10] LABS: HEMATOCRIT 37.8 % (39.0-51.0); MEAN CELL VOLUME 89.9 FL (80.0-100.0); MEAN CORPUSCULAR HEMOGLOBIN 30.6 PG (27.0-34.0); MEAN CORPUSCULAR HGB CONC 34.1 % (32.0-36.0); PLATELET COUNT 206 TH/MM3 (150-450); RED BLOOD COUNT 4.21 MIL/MM3 (4.50-5.90); REVIEW FLAG FINAL; WHITE BLOOD COUNT 18.8 TH/MM3 (4.0-11.0)
[2016-03-24 05:11] LABS: POTASSIUM 4.4 MEQ/L (3.5-5.1)
[2016-03-24] MEDS: PCA - TOTAL MG DILAUDID DELIVERED PER SHIFT OTHER SCH ×3 (06:12→23:30)
[2016-03-24] MEDS: DOCUSATE SODIUM 100 MG CAP PO SCH ×2 (07:55→21:07)
[2016-03-24] MEDS: PANTOPRAZOLE SOD 40 MG DELAYED RELEASE TAB PO SCH (07:55)
[2016-03-24] MEDS: THIAMINE INJ 100 MG in SODIUM CHLORIDE 0.9% INJ 100 ML IV SCH (07:55)
[2016-03-24] MEDS: SODIUM CHLORIDE 0.9% FLUSH 5 ML FLUSH IVF SCH ×2 (07:56→21:05)
[2016-03-24] MEDS: NICOTINE 14 MG/24 HR PATCH TD SCH (07:56)
[2016-03-24] MEDS: MORPHINE SULFATE 4 MG/ML INJ IV PUSH PRN ×4 (07:57→21:07)
[2016-03-24] MEDS: CYCLOBENZAPRINE HCL 10 MG TAB PO PRN ×2 (09:42→11:22)
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
[2016-03-24] MEDS ORDERED: QUEtiapine FUMARATE 100 MG TAB PO SCH (11:00)
[2016-03-24] MEDS ORDERED: BACITRACIN TOP OINT 15 GM TUBE TOP PRN (13:45)
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
[2016-03-24] MEDS ORDERED: PILL SPLITTER OTHER PRN (15:45)
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
[2016-03-24] MEDS: CITALOPRAM HYDROBROMIDE 20 MG TAB PO SCH (16:07)
[2016-03-24] MEDS: clonazePAM 1 MG TAB PO SCH ×2 (16:07→21:06)
[2016-03-24] MEDS: FAMOTIDINE 20 MG TAB PO SCH (21:05)
[2016-03-24] MEDS: QUEtiapine FUMARATE 100 MG TAB PO SCH (21:06)
[2016-03-25 00:51] VITALS: BP 110/58; PULSE 73; RESP 20; TEMP 97.9; O2SAT 99
[2016-03-25] MEDS: DEXAMETHASONE SOD PHOS 4 MG/ML VIAL IV SCH ×4 (03:42→21:17)
[2016-03-25 04:52] VITALS: BP 126/61; PULSE 54; RESP 20; TEMP 98.1; O2SAT 97
[2016-03-25] MEDS: PCA - TOTAL MG DILAUDID DELIVERED PER SHIFT OTHER SCH ×3 (06:00→22:00)
[2016-03-25] MEDS: clonazePAM 1 MG TAB PO SCH ×3 (06:07→21:17)
[2016-03-25 08:00] VITALS: BP 127/71; PULSE 81; RESP 19; TEMP 97.5; O2SAT 99
[2016-03-25] MEDS: DOCUSATE SODIUM 100 MG CAP PO SCH ×2 (09:13→21:17)
[2016-03-25] MEDS: NICOTINE 14 MG/24 HR PATCH TD SCH (09:13)
[2016-03-25] MEDS: SODIUM CHLORIDE 0.9% FLUSH 5 ML FLUSH IVF SCH ×2 (09:14→21:00)
[2016-03-25] MEDS: PANTOPRAZOLE SOD 40 MG DELAYED RELEASE TAB PO SCH (09:14)
[2016-03-25] MEDS: CITALOPRAM HYDROBROMIDE 20 MG TAB PO SCH (09:14)
[2016-03-25] MEDS: ACETAMINOPHEN/HYDROcodone 325 MG/10 MG TAB PO PRN ×2 (09:24→14:34)
[2016-03-25] MEDS: THIAMINE INJ 100 MG in SODIUM CHLORIDE 0.9% INJ 100 ML IV SCH (10:01)
[2016-03-25] MEDS: HYDROmorphone HCL PCA 6 MG/30 ML IV SCH ×2 (11:39→20:21)
[2016-03-25 12:00] VITALS: BP 127/69; PULSE 74; RESP 18; TEMP 97.9; O2SAT 98
[2016-03-25 16:00] VITALS: BP 114/66; PULSE 52; RESP 19; TEMP 97; O2SAT 98
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
[2016-03-25 20:30] VITALS: BP 139/65; PULSE 66; RESP 20; TEMP 97.2; O2SAT 98
[2016-03-25] MEDS: MORPHINE SULFATE 4 MG/ML INJ IV PUSH PRN ×2 (20:34→22:57)
[2016-03-25] MEDS: QUEtiapine FUMARATE 100 MG TAB PO SCH (21:17)
[2016-03-25] MEDS: FAMOTIDINE 20 MG TAB PO SCH (21:17)
[2016-03-25] MEDS: chlordiazePOXIDE 25 MG CAP PO PRN (21:17)
[2016-03-26 00:45] VITALS: BP 116/67; PULSE 65; RESP 20; TEMP 97.6; O2SAT 98
[2016-03-26] MEDS: DEXAMETHASONE SOD PHOS 4 MG/ML VIAL IV SCH ×4 (04:00→22:00)
[2016-03-26 05:03] VITALS: BP 119/51; PULSE 52; RESP 22; TEMP 97.3; O2SAT 98
[2016-03-26] MEDS: MORPHINE SULFATE 4 MG/ML INJ IV PUSH PRN (06:52)
[2016-03-26 08:00] VITALS: BP_SYST 11; BP_SYST 110; BP_DIAS 65; PULSE 62; RESP 18; TEMP 98.9; O2SAT 85; O2SAT 95
[2016-03-26] MEDS: HYDROmorphone HCL PCA 6 MG/30 ML IV SCH ×3 (08:24→19:47)
[2016-03-26] MEDS: SODIUM CHLORIDE 0.9% FLUSH 5 ML FLUSH IVF SCH ×2 (09:00→19:53)
[2016-03-26] MEDS: CITALOPRAM HYDROBROMIDE 20 MG TAB PO SCH (10:06)
[2016-03-26] MEDS: PANTOPRAZOLE SOD 40 MG DELAYED RELEASE TAB PO SCH (10:06)
[2016-03-26] MEDS: DOCUSATE SODIUM 100 MG CAP PO SCH ×2 (10:06→19:52)
[2016-03-26] MEDS: NICOTINE 14 MG/24 HR PATCH TD SCH (10:06)
[2016-03-26] MEDS: THIAMINE INJ 100 MG in SODIUM CHLORIDE 0.9% INJ 100 ML IV SCH ×2 (10:07→10:16)
[2016-03-26] MEDS: ACETAMINOPHEN/HYDROcodone 325 MG/10 MG TAB PO PRN ×3 (10:15→23:57)
[2016-03-26] MEDS: clonazePAM 1 MG TAB PO SCH ×3 (10:15→22:00)
[2016-03-26 10:44] LABS: HEMATOCRIT 39.7 % (39.0-51.0); MEAN CELL VOLUME 89.6 FL (80.0-100.0); MEAN CORPUSCULAR HEMOGLOBIN 31.1 PG (27.0-34.0); MEAN CORPUSCULAR HGB CONC 34.8 % (32.0-36.0); PLATELET COUNT 216 TH/MM3 (150-450); RED BLOOD COUNT 4.43 MIL/MM3 (4.50-5.90); RED CELL DISTRIBUTION WIDTH 13.2 % (11.6-17.2); REVIEW FLAG FINAL; WHITE BLOOD COUNT 15.3 TH/MM3 (4.0-11.0)
[2016-03-26 11:03] LABS: POTASSIUM 3.9 MEQ/L (3.5-5.1)
[2016-03-26 12:00] VITALS: BP 117/61; PULSE 62; RESP 17; TEMP 96.8; O2SAT 96
[2016-03-26] MEDS: fentaNYL 50 MCG/HR PATCH TD SCH (12:00)
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
[2016-03-26 16:00] VITALS: BP 119/66; PULSE 86; RESP 19; TEMP 97.6; O2SAT 96
[2016-03-26] MEDS: chlordiazePOXIDE 25 MG CAP PO PRN (18:00)
[2016-03-26] MEDS: FAMOTIDINE 20 MG TAB PO SCH (19:52)
[2016-03-26] MEDS: QUEtiapine FUMARATE 100 MG TAB PO SCH (19:52)
[2016-03-26] MEDS: CYCLOBENZAPRINE HCL 10 MG TAB PO PRN (19:53)
[2016-03-26 20:54] VITALS: BP 131/74; PULSE 57; RESP 17; TEMP 97.7; O2SAT 98
--- NOTE | 2016-03-26 22:59 | RADRPT ---
EXAM DATE/TIME: 03/26/2016 21:07 [place] COMPARISON: No previous studies available for comparison. INDICATIONS : Bilateral leg swelling. MEDICAL HISTORY : Cervical spine injury. IV drug and ETOH abuse. SURGICAL HISTORY : Cervical discectomy and fusion. ENCOUNTER: Initial ACUITY: 1 day PAIN SCORE: 0/10 LOCATION: Bilateral legs. TECHNIQUE: Venous ultrasound of the left and right leg was performed from the inguinal ligament to the proximal calf. Real-time, color Doppler and spectral tracing, compression and augmentation techniques were us ed. FINDINGS: RIGHT LEG: There is normal compressibility of the deep venous system from the inguinal region to the proximal ca lf. No echogenic clot is seen in the lumen of the common femoral, femoral, popliteal, and posterior tibial veins. There is a normal response of the venous system to proximal and distal augmentation an d respiration. LEFT LEG: There is normal compressibility of the deep venous system from the inguinal region to the proximal ca lf. No echogenic clot is seen in the lumen of the common femoral, femoral, popliteal, and posterior tibial veins. There is a normal response of the venous system to proximal and distal augmentation an d respiration. CONCLUSION: No DVT of either lower extremity. Chas Pak MD on March 26, 2016 at 22:57 Board Certified Radiologist. This report was verified electronically.
[2016-03-27 00:24] VITALS: BP 111/58; PULSE 66; RESP 17; TEMP 98.2; O2SAT 98
[2016-03-27] MEDS: DEXAMETHASONE SOD PHOS 4 MG/ML VIAL IV SCH ×4 (04:10→22:02)
[2016-03-27] MEDS: CYCLOBENZAPRINE HCL 10 MG TAB PO PRN ×2 (04:10→13:16)
[2016-03-27] MEDS: ACETAMINOPHEN/HYDROcodone 325 MG/10 MG TAB PO PRN ×3 (04:10→16:04)
[2016-03-27 05:13] VITALS: BP 119/57; PULSE 61; RESP 17; TEMP 97.2; O2SAT 97
[2016-03-27] MEDS: clonazePAM 1 MG TAB PO SCH ×3 (05:24→22:03)
[2016-03-27] MEDS: PCA - TOTAL MG DILAUDID DELIVERED PER SHIFT OTHER SCH ×2 (05:58→22:00)
[2016-03-27] MEDS: chlordiazePOXIDE 25 MG CAP PO PRN (08:41)
[2016-03-27] MEDS: THIAMINE INJ 100 MG in SODIUM CHLORIDE 0.9% INJ 100 ML IV SCH (08:41)
[2016-03-27] MEDS: PANTOPRAZOLE SOD 40 MG DELAYED RELEASE TAB PO SCH (08:41)
[2016-03-27] MEDS: DOCUSATE SODIUM 100 MG CAP PO SCH ×2 (08:42→22:02)
[2016-03-27] MEDS: CITALOPRAM HYDROBROMIDE 20 MG TAB PO SCH (08:42)
[2016-03-27] MEDS: NICOTINE 14 MG/24 HR PATCH TD SCH (08:42)
[2016-03-27] MEDS: SODIUM CHLORIDE 0.9% FLUSH 5 ML FLUSH IVF SCH ×2 (08:50→22:04)
[2016-03-27 08:54] VITALS: BP 123/66; PULSE 52; RESP 20; TEMP 96.9; O2SAT 96
[2016-03-27] MEDS: MORPHINE SULFATE 4 MG/ML INJ IV PUSH PRN (09:59)
[2016-03-27] MEDS: HYDROmorphone HCL PCA 6 MG/30 ML IV SCH ×2 (10:05→17:44)
[2016-03-27 13:26] VITALS: BP 126/75; PULSE 68; RESP 20; TEMP 98.4; O2SAT 97
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
[2016-03-27 16:29] VITALS: BP 118/58; PULSE 67; RESP 20; TEMP 97.9; O2SAT 95
[2016-03-27 19:54] VITALS: BP 135/69; PULSE 64; RESP 17; TEMP 98.9; O2SAT 97
[2016-03-27] MEDS: QUEtiapine FUMARATE 100 MG TAB PO SCH (22:03)
[2016-03-27] MEDS: FAMOTIDINE 20 MG TAB PO SCH (22:04)
[2016-03-28 00:37] VITALS: BP 123/72; PULSE 73; RESP 18; TEMP 97.6; O2SAT 96
[2016-03-28 04:44] VITALS: BP 126/68; PULSE 52; RESP 18; TEMP 97.6; O2SAT 98
[2016-03-28] MEDS: DEXAMETHASONE SOD PHOS 4 MG/ML VIAL IV SCH ×4 (05:27→22:51)
[2016-03-28] MEDS: clonazePAM 1 MG TAB PO SCH ×3 (05:28→22:50)
[2016-03-28] MEDS: PCA - TOTAL MG DILAUDID DELIVERED PER SHIFT OTHER SCH ×2 (06:00→14:55)
[2016-03-28] MEDS ORDERED: LACTULOSE SYRUP 20 GM/30 ML CUP PO ONE (08:15)
[2016-03-28 08:52] VITALS: BP 124/70; PULSE 55; RESP 20; TEMP 96.3; O2SAT 98
[2016-03-28] MEDS: HYDROmorphone HCL PCA 6 MG/30 ML IV SCH ×2 (09:08→14:54)
[2016-03-28] MEDS: CITALOPRAM HYDROBROMIDE 20 MG TAB PO SCH (09:10)
[2016-03-28] MEDS: DOCUSATE SODIUM 100 MG CAP PO SCH ×2 (09:10→22:50)
[2016-03-28] MEDS: CYCLOBENZAPRINE HCL 10 MG TAB PO PRN (09:10)
[2016-03-28] MEDS: PANTOPRAZOLE SOD 40 MG DELAYED RELEASE TAB PO SCH (09:10)
[2016-03-28] MEDS: ACETAMINOPHEN/HYDROcodone 325 MG/10 MG TAB PO PRN ×4 (09:11→22:55)
[2016-03-28] MEDS: THIAMINE INJ 100 MG in SODIUM CHLORIDE 0.9% INJ 100 ML IV SCH (09:12)
[2016-03-28] MEDS: SODIUM CHLORIDE 0.9% FLUSH 5 ML FLUSH IVF SCH ×2 (09:12→22:52)
[2016-03-28] MEDS: NICOTINE 14 MG/24 HR PATCH TD SCH (09:13)
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
[2016-03-28 12:58] VITALS: BP 128/60; PULSE 81; RESP 20; TEMP 97; O2SAT 98
[2016-03-28] MEDS: HEPARIN SODIUM - SQ 10,000 UNITS/ML VIAL SQ SCH ×2 (14:56→22:51)
--- NOTE | 2016-03-28 15:58 | RADRPT ---
EXAM DATE/TIME: 03/28/2016 15:24 [facility] COMPARISON: [facility] ([facility]), March 23, 2016, 11:21. INDICATIONS : Evaluate cervical fracture and surgery. MEDICAL HISTORY : None. SURGICAL HISTORY : None. ENCOUNTER: Initial ACUITY: 4 - 6 days PAIN SCORE: 8/10 LOCATION: C6 C7. FINDINGS: AP and lateral views of the cervical spine were obtained and demonstrate the patient status post ante rior cervical fusion at the C6-7 level with intact screw plate fixation device. There is bone graftin g material and marker. The alignment is anatomic. There is overlying artifact a halo traction device. There are posterior cerclage wires. CONCLUSION: Status post anterior fusion. Fabricio Tariq MD on March 28, 2016 at 15:50 Board Certified Radiologist. This report was verified electronically.
[2016-03-28 16:02] VITALS: BP 135/73; PULSE 65; RESP 20; TEMP 97.5; O2SAT 98
[2016-03-28 21:04] VITALS: BP 117/66; PULSE 51; RESP 18; TEMP 97.8; O2SAT 95
[2016-03-28] MEDS: FAMOTIDINE 20 MG TAB PO SCH (22:50)
[2016-03-28] MEDS: QUEtiapine FUMARATE 100 MG TAB PO SCH (22:50)
[2016-03-29] VITALS (7 sets, daily range): BP systolic 109–125; BP diastolic 56–84; PULSE 48–63; RESP 14–20; TEMP 96.8–99.4; O2SAT 97–99
[2016-03-29] MEDS: DEXAMETHASONE SOD PHOS 4 MG/ML VIAL IV SCH ×4 (03:52→22:17)
[2016-03-29] MEDS: PCA - TOTAL MG DILAUDID DELIVERED PER SHIFT OTHER SCH ×3 (05:38→22:00)
[2016-03-29] MEDS: HEPARIN SODIUM - SQ 10,000 UNITS/ML VIAL SQ SCH ×3 (05:40→22:17)
[2016-03-29] MEDS: clonazePAM 1 MG TAB PO SCH ×3 (05:40→22:17)
[2016-03-29] MEDS: ACETAMINOPHEN/HYDROcodone 325 MG/10 MG TAB PO PRN ×3 (05:41→17:42)
[2016-03-29] MEDS ORDERED: BISACODYL 10 MG SUPP RECTAL ONE (07:45)
[2016-03-29] MEDS ORDERED: BISACODYL EC 5 MG TABEC PO ONE (07:45)
[2016-03-29] MEDS: SODIUM CHLORIDE 0.9% FLUSH 5 ML FLUSH IVF SCH ×2 (09:00→22:08)
[2016-03-29] MEDS: HYDROmorphone HCL PCA 6 MG/30 ML IV SCH ×2 (09:28→19:53)
[2016-03-29] MEDS: NICOTINE 14 MG/24 HR PATCH TD SCH (10:07)
[2016-03-29] MEDS: DOCUSATE SODIUM 100 MG CAP PO SCH ×2 (10:08→22:07)
[2016-03-29] MEDS: PANTOPRAZOLE SOD 40 MG DELAYED RELEASE TAB PO SCH (10:08)
[2016-03-29] MEDS: CITALOPRAM HYDROBROMIDE 20 MG TAB PO SCH (10:09)
[2016-03-29] MEDS: THIAMINE INJ 100 MG in SODIUM CHLORIDE 0.9% INJ 100 ML IV SCH (10:23)
[2016-03-29] MEDS ORDERED: WALKER WHEELS/F1 MIS (11:46)
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
[2016-03-29] MEDS: fentaNYL 50 MCG/HR PATCH TD SCH (13:01)
[2016-03-29] MEDS: REMOVE OLD PATCH T-DERMAL SCH (13:01)
[2016-03-29] MEDS: FAMOTIDINE 20 MG TAB PO SCH (22:07)
[2016-03-29] MEDS: CYCLOBENZAPRINE HCL 10 MG TAB PO PRN (22:07)
[2016-03-29] MEDS: QUEtiapine FUMARATE 100 MG TAB PO SCH (22:07)
[2016-03-30] VITALS (7 sets, daily range): BP systolic 99–124; BP diastolic 55–83; PULSE 50–86; RESP 18–22; TEMP 97.4–98.3; O2SAT 95–98
[2016-03-30] MEDS: clonazePAM 1 MG TAB PO SCH ×3 (05:28→21:51)
[2016-03-30] MEDS: DEXAMETHASONE SOD PHOS 4 MG/ML VIAL IV SCH ×4 (05:28→21:53)
[2016-03-30] MEDS: CYCLOBENZAPRINE HCL 10 MG TAB PO PRN ×2 (05:28→09:27)
[2016-03-30] MEDS: HEPARIN SODIUM - SQ 10,000 UNITS/ML VIAL SQ SCH ×3 (05:29→21:53)
[2016-03-30] MEDS: PCA - TOTAL MG DILAUDID DELIVERED PER SHIFT OTHER SCH (05:29)
[2016-03-30] MEDS: SODIUM CHLORIDE 0.9% FLUSH 5 ML FLUSH IVF SCH ×2 (09:00→21:53)
[2016-03-30] MEDS: CITALOPRAM HYDROBROMIDE 20 MG TAB PO SCH (09:26)
[2016-03-30] MEDS: DOCUSATE SODIUM 100 MG CAP PO SCH ×2 (09:26→21:52)
[2016-03-30] MEDS: PANTOPRAZOLE SOD 40 MG DELAYED RELEASE TAB PO SCH (09:26)
[2016-03-30] MEDS: THIAMINE INJ 100 MG in SODIUM CHLORIDE 0.9% INJ 100 ML IV SCH (09:26)
[2016-03-30] MEDS: NICOTINE 14 MG/24 HR PATCH TD SCH (09:27)
[2016-03-30] MEDS: ACETAMINOPHEN/HYDROcodone 325 MG/10 MG TAB PO PRN ×4 (09:28→21:52)
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
[2016-03-30] MEDS: QUEtiapine FUMARATE 100 MG TAB PO SCH (21:52)
[2016-03-30] MEDS: FAMOTIDINE 20 MG TAB PO SCH (21:52)
[2016-03-31] MEDS: MAGNESIUM HYDROXIDE SUSP 30 ML CUP PO PRN (04:29)
[2016-03-31] MEDS: ACETAMINOPHEN/HYDROcodone 325 MG/10 MG TAB PO PRN ×4 (04:33→21:21)
[2016-03-31] MEDS: clonazePAM 1 MG TAB PO SCH ×3 (04:33→21:19)
[2016-03-31] MEDS: DEXAMETHASONE SOD PHOS 4 MG/ML VIAL IV SCH ×2 (04:33→10:02)
[2016-03-31] MEDS: HEPARIN SODIUM - SQ 10,000 UNITS/ML VIAL SQ SCH ×3 (04:34→21:19)
[2016-03-31 04:43] VITALS: BP 109/55; PULSE 55; RESP 18; TEMP 97.5; O2SAT 96
[2016-03-31 07:15] LABS: AUTOMATED NEUTROPHIL # 16.4 TH/MM3 (1.8-7.7); BASOPHIL % 0.2 % (0.0-2.0); HEMATOCRIT 36.3 % (39.0-51.0); LYMPH % 8.2 % (9.0-44.0); LYMPHOCYTE # 1.6 TH/MM3 (1.0-4.8); MEAN CELL VOLUME 91.3 FL (80.0-100.0); MEAN CORPUSCULAR HEMOGLOBIN 31.1 PG (27.0-34.0); MEAN CORPUSCULAR HGB CONC 34.1 % (32.0-36.0); MONO % 6.5 % (0.0-8.0); NEUT % 85.1 % (16.0-70.0); PLATELET COUNT 214 TH/MM3 (150-450); RED BLOOD COUNT 3.97 MIL/MM3 (4.50-5.90); RED CELL DISTRIBUTION WIDTH 13.1 % (11.6-17.2); WHITE BLOOD COUNT 19.3 TH/MM3 (4.0-11.0)
[2016-03-31 07:35] LABS: HEMO FLAGS AUTO DIFF
[2016-03-31 07:48] LABS: ANION GAP 8 MEQ/L (5-15); AST (GOT) 9 U/L (15-37); BICARBONATE 28.4 MEQ/L (21.0-32.0); BLOOD UREA NITROGEN 30 MG/DL (7-18); CHLORIDE 104 MEQ/L (98-107); GLOMERULAR FILTRATION RATE 120 ML/MIN (>89); MAGNESIUM 2.4 MG/DL (1.5-2.5); POTASSIUM 4.3 MEQ/L (3.5-5.1); SODIUM (NA) 140 MEQ/L (136-145)
[2016-03-31 07:51] LABS: ALKALINE PHOSPHATASE 49 U/L (45-117); ALT (GPT) 30 U/L (12-78); TOTAL BILIRUBIN ADULT 0.2 MG/DL (0.2-1.0)
[2016-03-31 08:00] VITALS: BP 117/70; PULSE 50; RESP 16; TEMP 96.9; O2SAT 98
[2016-03-31 08:26] LABS: BANDS 2 % (0-6); NEUTROPHIL # MANUAL DIFF 17.6 TH/MM3 (1.8-7.7); POLYS (SEG NEUTROPHILS) 89 % (16-70); WBC DIFF SAMPLE 100
[2016-03-31 08:27] LABS: PLATELET ESTIMATE SMEAR NORMAL (NORMAL); PLATELET MORPHOLOGY NORMAL (NORMAL); SCAN/DIFF FINAL DIFF MANUAL
[2016-03-31] MEDS: DOCUSATE SODIUM 100 MG CAP PO SCH ×2 (10:00→21:19)
[2016-03-31] MEDS: THIAMINE INJ 100 MG in SODIUM CHLORIDE 0.9% INJ 100 ML IV SCH (10:01)
[2016-03-31] MEDS: CITALOPRAM HYDROBROMIDE 20 MG TAB PO SCH (10:01)
[2016-03-31] MEDS: PANTOPRAZOLE SOD 40 MG DELAYED RELEASE TAB PO SCH (10:01)
[2016-03-31] MEDS: NICOTINE 14 MG/24 HR PATCH TD SCH (10:01)
[2016-03-31] MEDS: LACTULOSE SYRUP 20 GM/30 ML CUP PO SCH (10:02)
[2016-03-31] MEDS: CYCLOBENZAPRINE HCL 10 MG TAB PO PRN ×2 (10:02→19:36)
[2016-03-31] MEDS: SODIUM CHLORIDE 0.9% FLUSH 5 ML FLUSH IVF SCH ×2 (10:03→21:00)
[2016-03-31 12:00] VITALS: BP 127/74; PULSE 60; RESP 17; TEMP 96.5; O2SAT 97
[2016-03-31 16:00] VITALS: BP 116/61; PULSE 56; RESP 17; TEMP 97.5; O2SAT 99
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
[2016-03-31 20:00] VITALS: BP 115/66; PULSE 60; RESP 18; TEMP 97.7; O2SAT 99
[2016-03-31] MEDS: FAMOTIDINE 20 MG TAB PO SCH (21:19)
[2016-03-31] MEDS: DEXAMETHASONE 4 MG TAB PO SCH (21:19)
[2016-03-31] MEDS: QUEtiapine FUMARATE 100 MG TAB PO SCH (21:19)
[2016-04-01 04:00] VITALS: BP 116/57; PULSE 54; RESP 18; TEMP 97.1; O2SAT 98
[2016-04-01] MEDS: clonazePAM 1 MG TAB PO SCH ×4 (06:00→22:09)
[2016-04-01] MEDS: HEPARIN SODIUM - SQ 10,000 UNITS/ML VIAL SQ SCH ×3 (06:21→22:08)
[2016-04-01] MEDS: ACETAMINOPHEN/HYDROcodone 325 MG/10 MG TAB PO PRN ×3 (07:58→22:09)
[2016-04-01 08:00] VITALS: BP 107/58; PULSE 52; RESP 17; TEMP 96.3; O2SAT 98
[2016-04-01] MEDS ORDERED: MAGNESIUM CITRATE SOLN 300 ML BTL PO ONE (08:00)
[2016-04-01] MEDS: CITALOPRAM HYDROBROMIDE 20 MG TAB PO SCH (10:22)
[2016-04-01] MEDS: PANTOPRAZOLE SOD 40 MG DELAYED RELEASE TAB PO SCH (10:22)
[2016-04-01] MEDS: CYCLOBENZAPRINE HCL 10 MG TAB PO PRN ×2 (10:22→18:48)
[2016-04-01] MEDS: DOCUSATE SODIUM 100 MG CAP PO SCH ×2 (10:22→22:09)
[2016-04-01] MEDS: LACTULOSE SYRUP 20 GM/30 ML CUP PO SCH (10:24)
[2016-04-01] MEDS: SODIUM CHLORIDE 0.9% FLUSH 5 ML FLUSH IVF SCH ×2 (10:24→21:00)
[2016-04-01] MEDS: THIAMINE INJ 100 MG in SODIUM CHLORIDE 0.9% INJ 100 ML IV SCH (10:24)
[2016-04-01] MEDS: DEXAMETHASONE 4 MG TAB PO SCH ×2 (10:24→22:09)
[2016-04-01] MEDS: NICOTINE 14 MG/24 HR PATCH TD SCH (10:25)
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
[2016-04-01 12:00] VITALS: BP 102/71; PULSE 60; RESP 17; TEMP 97.5; O2SAT 98
[2016-04-01] MEDS: REMOVE OLD PATCH T-DERMAL SCH (12:00)
[2016-04-01] MEDS: fentaNYL 50 MCG/HR PATCH TD SCH (13:53)
[2016-04-01 16:00] VITALS: BP 99/54; PULSE 75; RESP 18; TEMP 97.5; O2SAT 98
[2016-04-01 17:20] VITALS: BP 105/62
[2016-04-01 20:55] VITALS: BP 104/53; PULSE 65; RESP 18; TEMP 98.7; O2SAT 100
[2016-04-01 20:55] LABS: AUTOMATED NEUTROPHIL # 16.3 TH/MM3 (1.8-7.7); BASOPHIL # 0.1 TH/MM3 (0-0.2); BASOPHIL % 0.3 % (0.0-2.0); EOSINOPHIL % 0.2 % (0.0-4.0); LYMPH % 8.8 % (9.0-44.0); LYMPHOCYTE # 1.8 TH/MM3 (1.0-4.8); MEAN CELL VOLUME 90.4 FL (80.0-100.0); MEAN CORPUSCULAR HEMOGLOBIN 30.8 PG (27.0-34.0); MEAN CORPUSCULAR HGB CONC 34.1 % (32.0-36.0); MONO % 8.9 % (0.0-8.0); NEUT % 81.8 % (16.0-70.0); PLATELET COUNT 206 TH/MM3 (150-450); RED BLOOD COUNT 4.32 MIL/MM3 (4.50-5.90); RED CELL DISTRIBUTION WIDTH 13.3 % (11.6-17.2)
[2016-04-01 20:56] LABS: ALKALINE PHOSPHATASE 54 U/L (45-117); ALT (GPT) 26 U/L (12-78); ANION GAP 9 MEQ/L (5-15); AST (GOT) 11 U/L (15-37); BICARBONATE 28.2 MEQ/L (21.0-32.0); CHLORIDE 100 MEQ/L (98-107); GLOMERULAR FILTRATION RATE 113 ML/MIN (>89); MAGNESIUM 2.4 MG/DL (1.5-2.5); POTASSIUM 4.7 MEQ/L (3.5-5.1); SODIUM (NA) 137 MEQ/L (136-145); TOTAL BILIRUBIN ADULT 0.2 MG/DL (0.2-1.0)
[2016-04-01 20:57] LABS: HEMO FLAGS AUTO DIFF
[2016-04-01 21:04] LABS: BLOOD UREA NITROGEN 33 MG/DL (7-18)
[2016-04-01] MEDS: QUEtiapine FUMARATE 100 MG TAB PO SCH (22:09)
[2016-04-01] MEDS: FAMOTIDINE 20 MG TAB PO SCH (22:10)
[2016-04-01 23:08] LABS: NEUTROPHIL # MANUAL DIFF 15.6 TH/MM3 (1.8-7.7); POLYS (SEG NEUTROPHILS) 78 % (16-70); WBC DIFF SAMPLE 100
[2016-04-01 23:09] LABS: PLATELET ESTIMATE SMEAR NORMAL (NORMAL); PLATELET MORPHOLOGY NORMAL (NORMAL); SCAN/DIFF FINAL DIFF MANUAL
[2016-04-02 04:00] VITALS: BP 128/71; PULSE 75; RESP 18; TEMP 97.6; O2SAT 98
[2016-04-02] MEDS: clonazePAM 1 MG TAB PO SCH ×3 (06:25→20:34)
[2016-04-02] MEDS: ACETAMINOPHEN/HYDROcodone 325 MG/10 MG TAB PO PRN ×4 (06:25→21:32)
[2016-04-02] MEDS: HEPARIN SODIUM - SQ 10,000 UNITS/ML VIAL SQ SCH ×3 (06:26→20:35)
[2016-04-02] MEDS ORDERED: MAGNESIUM CITRATE SOLN 300 ML BTL PO ONE (07:30)
[2016-04-02 08:00] VITALS: BP 125/67; PULSE 55; RESP 16; TEMP 97.8; O2SAT 98
[2016-04-02] MEDS: DOCUSATE SODIUM 100 MG CAP PO SCH ×2 (09:50→20:34)
[2016-04-02] MEDS: SODIUM CHLORIDE 0.9% FLUSH 5 ML FLUSH IVF SCH ×2 (09:50→20:35)
[2016-04-02] MEDS: CITALOPRAM HYDROBROMIDE 20 MG TAB PO SCH (09:50)
[2016-04-02] MEDS: DEXAMETHASONE 4 MG TAB PO SCH (09:50)
[2016-04-02] MEDS: THIAMINE INJ 100 MG in SODIUM CHLORIDE 0.9% INJ 100 ML IV SCH (09:50)
[2016-04-02] MEDS: NICOTINE 14 MG/24 HR PATCH TD SCH (09:51)
[2016-04-02] MEDS: LACTULOSE SYRUP 20 GM/30 ML CUP PO SCH (09:51)
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
[2016-04-02 12:00] VITALS: BP 125/67; PULSE 55; RESP 16; TEMP 97.8; O2SAT 98
[2016-04-02] MEDS: MAGNESIUM HYDROXIDE SUSP 30 ML CUP PO PRN (12:51)
[2016-04-02 16:00] VITALS: BP 107/54; PULSE 69; RESP 16; TEMP 98.1; O2SAT 98
[2016-04-02 20:00] VITALS: BP 134/63; PULSE 82; RESP 20; TEMP 97.4; O2SAT 97
[2016-04-02] MEDS: FAMOTIDINE 20 MG TAB PO SCH (20:34)
[2016-04-02] MEDS: QUEtiapine FUMARATE 100 MG TAB PO SCH (20:34)
[2016-04-03] VITALS: BP 112/55; PULSE 71; RESP 18; TEMP 96.5; O2SAT 96
[2016-04-03] MEDS: ACETAMINOPHEN/HYDROcodone 325 MG/10 MG TAB PO PRN ×5 (01:10→22:06)
[2016-04-03 05:34] VITALS: BP 107/54; PULSE 67; RESP 18; TEMP 96.7; O2SAT 98
[2016-04-03] MEDS: HEPARIN SODIUM - SQ 10,000 UNITS/ML VIAL SQ SCH ×3 (06:00→22:08)
[2016-04-03] MEDS: clonazePAM 1 MG TAB PO SCH ×3 (06:15→22:05)
[2016-04-03 07:59] VITALS: BP 105/59; PULSE 56; RESP 20; TEMP 96.9; O2SAT 98
[2016-04-03] MEDS: NICOTINE 14 MG/24 HR PATCH TD SCH (08:34)
[2016-04-03] MEDS: DOCUSATE SODIUM 100 MG CAP PO SCH ×2 (08:34→22:05)
[2016-04-03] MEDS: THIAMINE INJ 100 MG in SODIUM CHLORIDE 0.9% INJ 100 ML IV SCH (08:35)
[2016-04-03] MEDS: SODIUM CHLORIDE 0.9% FLUSH 5 ML FLUSH IVF SCH ×2 (08:35→22:11)
[2016-04-03] MEDS: DEXAMETHASONE 4 MG TAB PO SCH (08:36)
[2016-04-03] MEDS: LACTULOSE SYRUP 20 GM/30 ML CUP PO SCH (08:36)
[2016-04-03] MEDS: CITALOPRAM HYDROBROMIDE 20 MG TAB PO SCH (08:36)
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
[2016-04-03 12:36] VITALS: BP 109/55; PULSE 76; RESP 20; TEMP 98.1; O2SAT 97
[2016-04-03] MEDS: BENZOCAINE 7.5% ORAL GEL 9.4 GM TUBE OROPHARYNG PRN ×2 (14:22→22:10)
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
[2016-04-03] MEDS ORDERED: METHYLNALTREXONE BROMIDE 12 MG/0.6 ML VIAL SQ ONE (16:30)
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
[2016-04-03 20:00] VITALS: BP 117/57; PULSE 80; RESP 20; TEMP 98.9; O2SAT 96
[2016-04-03 20:57] LABS: AUTOMATED NEUTROPHIL # 11.5 TH/MM3 (1.8-7.7); BASOPHIL % 0.2 % (0.0-2.0); EOSINOPHIL % 0.3 % (0.0-4.0); HEMO FLAGS DIFF FINAL; LYMPH % 9.5 % (9.0-44.0); LYMPHOCYTE # 1.4 TH/MM3 (1.0-4.8); MEAN CELL VOLUME 90.7 FL (80.0-100.0); MEAN CORPUSCULAR HEMOGLOBIN 31.1 PG (27.0-34.0); MEAN CORPUSCULAR HGB CONC 34.2 % (32.0-36.0); MONO % 12.4 % (0.0-8.0); NEUT % 77.6 % (16.0-70.0); PLATELET COUNT 232 TH/MM3 (150-450); RED BLOOD COUNT 4.08 MIL/MM3 (4.50-5.90); WHITE BLOOD COUNT 14.8 TH/MM3 (4.0-11.0)
[2016-04-03 21:41] LABS: ALKALINE PHOSPHATASE 65 U/L (45-117); ALT (GPT) 50 U/L (12-78); ANION GAP 10 MEQ/L (5-15); AST (GOT) 27 U/L (15-37); BICARBONATE 27.7 MEQ/L (21.0-32.0); BLOOD UREA NITROGEN 33 MG/DL (7-18); CHLORIDE 103 MEQ/L (98-107); GLOMERULAR FILTRATION RATE 76 ML/MIN (>89); MAGNESIUM 2.4 MG/DL (1.5-2.5); POTASSIUM 4.3 MEQ/L (3.5-5.1); SODIUM (NA) 141 MEQ/L (136-145); TOTAL BILIRUBIN ADULT 0.2 MG/DL (0.2-1.0)
[2016-04-03] MEDS: FAMOTIDINE 20 MG TAB PO SCH (22:05)
[2016-04-03] MEDS: QUEtiapine FUMARATE 100 MG TAB PO SCH (22:05)
[2016-04-04] VITALS: BP 103/55; PULSE 79; RESP 20; TEMP 98; O2SAT 97
[2016-04-04 04:00] VITALS: BP 108/52; PULSE 69; RESP 20; TEMP 97; O2SAT 97
[2016-04-04] MEDS: BENZOCAINE 7.5% ORAL GEL 9.4 GM TUBE OROPHARYNG PRN (04:01)
[2016-04-04] MEDS: ACETAMINOPHEN/HYDROcodone 325 MG/10 MG TAB PO PRN ×2 (04:01→10:53)
[2016-04-04] MEDS: clonazePAM 1 MG TAB PO SCH ×3 (05:52→21:03)
[2016-04-04] MEDS: HEPARIN SODIUM - SQ 10,000 UNITS/ML VIAL SQ SCH ×3 (05:55→21:03)
[2016-04-04 07:00] VITALS: BP 105/52; PULSE 71; RESP 19; TEMP 96.6; O2SAT 97
[2016-04-04] MEDS: DOCUSATE SODIUM 100 MG CAP PO SCH ×2 (08:37→21:03)
[2016-04-04] MEDS: LACTULOSE SYRUP 20 GM/30 ML CUP PO SCH (08:37)
[2016-04-04] MEDS: NICOTINE 14 MG/24 HR PATCH TD SCH (08:38)
[2016-04-04] MEDS: DEXAMETHASONE 4 MG TAB PO SCH (08:38)
[2016-04-04] MEDS: CITALOPRAM HYDROBROMIDE 20 MG TAB PO SCH (08:38)
[2016-04-04] MEDS: SODIUM CHLORIDE 0.9% FLUSH 5 ML FLUSH IVF SCH ×2 (08:39→21:03)
[2016-04-04] MEDS: THIAMINE INJ 100 MG in SODIUM CHLORIDE 0.9% INJ 100 ML IV SCH (08:39)
[2016-04-04] MEDS: REMOVE OLD PATCH T-DERMAL SCH (08:43)
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
[2016-04-04] MEDS: fentaNYL 50 MCG/HR PATCH TD SCH (10:53)
[2016-04-04 11:55] VITALS: BP 116/57; PULSE 83; RESP 19; TEMP 99.1; O2SAT 97
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
[2016-04-04 15:00] VITALS: BP 120/59; PULSE 78; RESP 20; TEMP 97.2; O2SAT 95
[2016-04-04] MEDS ORDERED: PEG (High)/E-LYTE SOLN 4000 ML BTL PO ONE (16:00)
[2016-04-04 20:00] VITALS: BP 150/92; PULSE 117; RESP 20; TEMP 98.9; O2SAT 96
[2016-04-04] MEDS: FAMOTIDINE 20 MG TAB PO SCH (21:03)
[2016-04-04] MEDS: QUEtiapine FUMARATE 100 MG TAB PO SCH (21:03)
[2016-04-05] VITALS: BP 127/84; PULSE 99; RESP 20; TEMP 98.7; O2SAT 95
[2016-04-05] MEDS: ACETAMINOPHEN/HYDROcodone 325 MG/10 MG TAB PO PRN ×4 (00:24→19:09)
[2016-04-05 04:33] VITALS: BP 122/60; PULSE 81; RESP 20; TEMP 98.4; O2SAT 97
[2016-04-05] MEDS: clonazePAM 1 MG TAB PO SCH ×3 (05:42→21:24)
[2016-04-05 08:00] VITALS: BP 110/69; PULSE 77; RESP 19; TEMP 97.7; O2SAT 96
[2016-04-05] MEDS: SODIUM CHLORIDE 0.9% FLUSH 5 ML FLUSH IVF SCH ×2 (09:00→21:25)
[2016-04-05] MEDS: CITALOPRAM HYDROBROMIDE 20 MG TAB PO SCH (09:42)
[2016-04-05] MEDS: DEXAMETHASONE 4 MG TAB PO SCH (09:42)
[2016-04-05] MEDS: DOCUSATE SODIUM 100 MG CAP PO SCH ×2 (09:42→21:24)
[2016-04-05] MEDS: THIAMINE INJ 100 MG in SODIUM CHLORIDE 0.9% INJ 100 ML IV SCH (09:42)
[2016-04-05] MEDS: LACTULOSE SYRUP 20 GM/30 ML CUP PO SCH (09:44)
[2016-04-05] MEDS: NICOTINE 14 MG/24 HR PATCH TD SCH (09:44)
[2016-04-05 09:47] LABS: AUTOMATED NEUTROPHIL # 7.8 TH/MM3 (1.8-7.7); BASOPHIL % 0.3 % (0.0-2.0); EOSINOPHIL # 0.1 TH/MM3 (0-0.4); EOSINOPHIL % 0.8 % (0.0-4.0); HEMATOCRIT 37.1 % (39.0-51.0); LYMPH % 23.5 % (9.0-44.0); LYMPHOCYTE # 2.8 TH/MM3 (1.0-4.8); MEAN CELL VOLUME 91.3 FL (80.0-100.0); MEAN CORPUSCULAR HEMOGLOBIN 30.9 PG (27.0-34.0); MEAN CORPUSCULAR HGB CONC 33.9 % (32.0-36.0); MONO % 10.1 % (0.0-8.0); NEUT % 65.3 % (16.0-70.0); PLATELET COUNT 168 TH/MM3 (150-450); RED BLOOD COUNT 4.07 MIL/MM3 (4.50-5.90); WHITE BLOOD COUNT 11.9 TH/MM3 (4.0-11.0)
[2016-04-05 10:01] LABS: ALT (GPT) 35 U/L (12-78); ANION GAP 8 MEQ/L (5-15); AST (GOT) 18 U/L (15-37); BICARBONATE 27.5 MEQ/L (21.0-32.0); BLOOD UREA NITROGEN 24 MG/DL (7-18); CHLORIDE 107 MEQ/L (98-107); GLOMERULAR FILTRATION RATE 90 ML/MIN (>89); MAGNESIUM 2.3 MG/DL (1.5-2.5); POTASSIUM 4.3 MEQ/L (3.5-5.1); SODIUM (NA) 142 MEQ/L (136-145)
[2016-04-05 10:03] LABS: ALKALINE PHOSPHATASE 55 U/L (45-117); TOTAL BILIRUBIN ADULT 0.3 MG/DL (0.2-1.0)
[2016-04-05 10:12] LABS: HEMO FLAGS AUTO DIFF; PLATELET ESTIMATE SMEAR NORMAL (NORMAL); PLATELET MORPHOLOGY NORMAL (NORMAL)
[2016-04-05 10:13] LABS: SCAN/DIFF AUTO DIFF CONFIRMED
[2016-04-05] MEDS ORDERED: MORPHINE SULFATE 4 MG/ML INJ IV ONE (11:15)
[2016-04-05] MEDS ORDERED: PROPOFOL 200 MG/20 ML AMP IV ONE (12:01)
[2016-04-05] MEDS ORDERED: LACTATED RINGER'S 1,000 ML BAG IV ONE (12:01)
[2016-04-05] MEDS ORDERED: DO NOT ADM ANY ANTICOAGULANT DRUGS XX PRN (12:13)
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
[2016-04-05 16:00] VITALS: BP 123/59; PULSE 87; RESP 18; TEMP 97.1; O2SAT 98
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
[2016-04-05] MEDS ORDERED: DIATRIZOATE MEGLUM/DIATRIZOATE SOD 9 ML CUP PO ONE (17:30)
[2016-04-05 20:00] VITALS: BP 117/66; PULSE 73; RESP 20; TEMP 97.3; O2SAT 100
[2016-04-05] MEDS ORDERED: fentaNYL 50 MCG/HR PATCH TD SCH (21:00)
[2016-04-05] MEDS: FAMOTIDINE 20 MG TAB PO SCH (21:24)
[2016-04-05] MEDS: QUEtiapine FUMARATE 100 MG TAB PO SCH (21:24)
[2016-04-05] MEDS ORDERED: IOHEXOL 350 MG/ML 10 ML VIAL (for RAD DIAG) IV ONE (21:57)
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
[2016-04-06] VITALS: BP 99/55; PULSE 76; RESP 20; TEMP 96.6; O2SAT 96
[2016-04-06] MEDS: clonazePAM 1 MG TAB PO SCH ×3 (06:13→22:35)
[2016-04-06 07:34] VITALS: O2SAT 97
[2016-04-06 08:00] VITALS: BP 105/63; PULSE 51; RESP 15; TEMP 95.8; O2SAT 95
[2016-04-06] MEDS: SODIUM CHLORIDE 0.9% FLUSH 5 ML FLUSH IVF SCH ×2 (09:00→22:35)
[2016-04-06] MEDS: DOCUSATE SODIUM 100 MG CAP PO SCH ×2 (10:33→21:00)
[2016-04-06] MEDS: LACTULOSE SYRUP 20 GM/30 ML CUP PO SCH (10:33)
[2016-04-06] MEDS: DEXAMETHASONE 4 MG TAB PO SCH (10:34)
[2016-04-06] MEDS: CITALOPRAM HYDROBROMIDE 20 MG TAB PO SCH (10:34)
[2016-04-06] MEDS: NICOTINE 14 MG/24 HR PATCH TD SCH (10:35)
[2016-04-06] MEDS: ACETAMINOPHEN/HYDROcodone 325 MG/10 MG TAB PO PRN ×4 (10:35→22:40)
[2016-04-06 12:00] VITALS: BP 116/60; PULSE 63; RESP 16; TEMP 95.9; O2SAT 100
[2016-04-06 13:40] LABS: APTT (PATIENT) 21.3 SEC (24.3-30.1); INTERNATIONAL NORMALIZED RATIO 0.9 RATIO; PROTHROMBIN TIME - PATIENT 10.1 SEC (9.8-11.6)
[2016-04-06 13:43] LABS: AUTOMATED NEUTROPHIL # 9.1 TH/MM3 (1.8-7.7); BASOPHIL % 0.3 % (0.0-2.0); EOSINOPHIL # 0.2 TH/MM3 (0-0.4); EOSINOPHIL % 1.3 % (0.0-4.0); HEMATOCRIT 42.6 % (39.0-51.0); LYMPH % 17.2 % (9.0-44.0); LYMPHOCYTE # 2.1 TH/MM3 (1.0-4.8); MEAN CELL VOLUME 92.2 FL (80.0-100.0); MEAN CORPUSCULAR HEMOGLOBIN 30.2 PG (27.0-34.0); MEAN CORPUSCULAR HGB CONC 32.7 % (32.0-36.0); MONO % 6.6 % (0.0-8.0); NEUT % 74.6 % (16.0-70.0); PLATELET COUNT 195 TH/MM3 (150-450); RED BLOOD COUNT 4.62 MIL/MM3 (4.50-5.90); RED CELL DISTRIBUTION WIDTH 14.2 % (11.6-17.2); WHITE BLOOD COUNT 12.1 TH/MM3 (4.0-11.0)
[2016-04-06 13:46] LABS: HEMO FLAGS AUTO DIFF
[2016-04-06 14:17] LABS: BANDS 1 % (0-6); MYELOCYTES 2 % (0-0); NEUTROPHIL # MANUAL DIFF 9.2 TH/MM3 (1.8-7.7); POLYS (SEG NEUTROPHILS) 73 % (16-70); WBC DIFF SAMPLE 100
[2016-04-06 14:18] LABS: PLATELET ESTIMATE SMEAR NORMAL (NORMAL); PLATELET MORPHOLOGY NORMAL (NORMAL); SCAN/DIFF FINAL DIFF MANUAL
[2016-04-06 16:00] VITALS: BP 115/57; PULSE 84; RESP 16; TEMP 98.5; O2SAT 98
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
[2016-04-06] MEDS: FAMOTIDINE 20 MG TAB PO SCH (22:35)
[2016-04-06] MEDS: QUEtiapine FUMARATE 100 MG TAB PO SCH (22:35)
[2016-04-07] MEDS: ACETAMINOPHEN/HYDROcodone 325 MG/10 MG TAB PO PRN ×5 (04:17→21:51)
[2016-04-07] MEDS: clonazePAM 1 MG TAB PO SCH ×3 (06:38→21:51)
[2016-04-07] MEDS: DEXAMETHASONE 4 MG TAB PO SCH (08:20)
[2016-04-07] MEDS: LACTULOSE SYRUP 20 GM/30 ML CUP PO SCH (08:21)
[2016-04-07] MEDS: DOCUSATE SODIUM 100 MG CAP PO SCH ×2 (08:21→20:20)
[2016-04-07] MEDS: CITALOPRAM HYDROBROMIDE 20 MG TAB PO SCH (08:21)
[2016-04-07] MEDS: NICOTINE 14 MG/24 HR PATCH TD SCH (08:22)
[2016-04-07] MEDS: SODIUM CHLORIDE 0.9% FLUSH 5 ML FLUSH IVF SCH ×2 (08:22→20:20)
[2016-04-07 08:43] VITALS: BP 100/58; PULSE 55; RESP 20; TEMP 97; O2SAT 99
[2016-04-07] MEDS: REMOVE OLD PATCH T-DERMAL SCH (10:56)
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
[2016-04-07 12:12] VITALS: BP 118/66; PULSE 89; RESP 20; TEMP 98.7; O2SAT 97
[2016-04-07] MEDS ORDERED: MILKSUS PO (13:02)
[2016-04-07] MEDS ORDERED: CYCL1TAB29 PO (13:02)
[2016-04-07] MEDS ORDERED: DOCU1CAP39 PO (13:02)
[2016-04-07] MEDS ORDERED: LIDOCAINE 1%/EPINEPHrine 1:100,000 SOLN 20 ML VIAL ONE (14:28)
[2016-04-07] MEDS ORDERED: HOSP BED1 (14:32)
[2016-04-07] MEDS ORDERED: WHEEMIS3 (14:32)
[2016-04-07] MEDS ORDERED: LORazepam 2 MG/ML VIAL ONE (14:58)
[2016-04-07] MEDS ORDERED: fentaNYL CITRATE 250 MCG/5 ML AMP ONE (14:58)
--- NOTE | 2016-04-07 16:07 | RADRPT ---
EXAM DATE/TIME: 04/07/2016 14:52 [facility] COMPARISON: CT ABDOMEN & PELVIS W CONTRAST, April 05, 2016, 21:57. INDICATIONS : Abdominal mass SEDATION TIME: 30 minutes BIOPSY SITE: Right abdominal mass MEDICATION(S): 1.) 350 mcg fentanyl (Sublimaze) IV 2.) 2 mg lorazepam (Ativan) IV DEVICE(S): 1.) 18 gauge Temno core biopsy needle 2.) 17 gauge introducer MEDICAL HISTORY : None. SURGICAL HISTORY : cervical fusion ENCOUNTER: Initial ACUITY: 1 day PAIN SCORE: 0/10 LOCATION: Right abdomen A total of five core specimen(s) were obtained and sent to the laboratory for pathologic evaluation. PROCEDURE: 1. CT guided abdomen biopsy. 2. Conscious sedation with continuous EKG and oximetry monitoring. 3. EKG and oximetry remained stable throughout the procedure. Prior to the procedure informed consent was obtained. Any appropriate prior imaging studies were rev iewed. The site was prepped in a sterile fashion. Full sterile technique was used, including cap, mask, raul rile gloves and gown and a large sterile sheet. Hand hygiene and 2% chlorhexidine and/or betadine/al cohol prep was utilized per protocol for cutaneous antisepsis. The skin and subcutaneous tissues wer e infiltrated with local anesthetic solution. With CT guidance the solid, cystic, and partially calcified mass in the right abdomen was localized. Biopsy was performed using the prescribed needle as above. Adequate hemostasis was obtained with com pression at the puncture site. Follow-up CT scan reveals no hemorrhage or acute finding. There is air within the targeted mass. The patient tolerated the procedure well and there were no complications. The patient was returned to the Radiology Outpatient Unit in stable condition. CONCLUSION: Uncomplicated CT guided biopsy of the solid and cystic and partially calcified mass in the right mida bdomen. Etiology is uncertain but some differential diagnostic considerations include gastrointestina l stromal tumor or leiomyoma. Chas Narayanan MD on April 07, 2016 at 16:04 Board Certified Radiologist. This report was verified electronically.
[2016-04-07 16:25] VITALS: BP 125/62; PULSE 68; RESP 20; TEMP 99.2; O2SAT 98
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
[2016-04-07 20:00] VITALS: BP 117/60; PULSE 75; RESP 18; TEMP 97.1; O2SAT 96
[2016-04-07] MEDS: FAMOTIDINE 20 MG TAB PO SCH (20:20)
[2016-04-07] MEDS: QUEtiapine FUMARATE 100 MG TAB PO SCH (20:20)
[2016-04-07 21:21] LABS: BETA HCG TUMOR MARKER LESS THAN 1 MIU/ML (0-5); LDH SERUM 196 U/L (87-241)
[2016-04-08] VITALS: BP 100/54; PULSE 75; RESP 16; TEMP 97.7; O2SAT 95
[2016-04-08 04:00] VITALS: BP 107/55; PULSE 67; RESP 20; TEMP 97.9; O2SAT 97
[2016-04-08] MEDS: ACETAMINOPHEN/HYDROcodone 325 MG/10 MG TAB PO PRN ×3 (05:34→15:21)
[2016-04-08] MEDS: clonazePAM 1 MG TAB PO SCH ×2 (05:34→12:58)
[2016-04-08] MEDS ORDERED: BISACODYL 10 MG SUPP RECTAL ONE (07:45)
[2016-04-08] MEDS ORDERED: BISACODYL EC 5 MG TABEC PO ONE (07:45)
[2016-04-08 08:15] VITALS: BP 107/63; PULSE 72; RESP 20; TEMP 97.8; O2SAT 99
[2016-04-08] MEDS: DOCUSATE SODIUM 100 MG CAP PO SCH (09:09)
[2016-04-08] MEDS: SODIUM CHLORIDE 0.9% FLUSH 5 ML FLUSH IVF SCH (09:09)
[2016-04-08] MEDS: DEXAMETHASONE 4 MG TAB PO SCH (09:10)
[2016-04-08] MEDS: CITALOPRAM HYDROBROMIDE 20 MG TAB PO SCH (09:11)
[2016-04-08] MEDS: LACTULOSE SYRUP 20 GM/30 ML CUP PO SCH (09:12)
[2016-04-08] MEDS: NICOTINE 14 MG/24 HR PATCH TD SCH (09:13)
[2016-04-08 12:00] VITALS: BP 110/54; PULSE 73; RESP 20; TEMP 97.3; O2SAT 99
--- NOTE | 2016-04-08 12:20 | HHI.PYPN ---
Subjective Remarks Patient was seen today for psychiatric reevaluation, is irritable, demanding, stating that he is undertreated for his pain, he feels depressed, hopeless, helpless," I feel nobody wanted help me, just because I was a drug user he doesn 't mean that I am not in a lot of pain and in a very uncomfortable situation". Patient reports poor sleep, frequent episodes of sadness, crying spells, frustration and irritability. He denies suicidal or homicidal ideation, he denies visual and auditory hallucinations. Patient is oriented 3. Review of Systems Constitutional: DENIES: Diaphoretic episodes, Fatigue, Fever, Weight gain, Weight loss, Chills, Dizziness, Change in appetite, Night Sweats Endocrine: DENIES: Heat/cold intolerance, Polydipsia, Polyuria, Polyphagia Eyes: DENIES: Blurred vision, Diplopia, Eye inflammation, Eye pain, Vision loss , Photosensitivity, Double Vision Ears, nose, mouth, throat: DENIES: Tinnitus, Hearing loss, Vertigo, Nasal discharge, Oral lesions, Throat pain, Hoarseness, Ear Pain, Running Nose, Epistaxis, Sinus Pain, Toothache, Odynophagia Respiratory: DENIES: Apneas, Cough, Snoring, Wheezing, Hemoptysis, Sputum production, Shortness of breath Cardiovascular: DENIES: Chest pain, Palpitations, Syncope, Dyspnea on Exertion , PND, Lower Extremity Edema, Orthopnea, Claudication Gastrointestinal: DENIES: Abdominal pain, Black stools, Bloody stools, Constipation, Diarrhea, Nausea, Vomiting, Difficulty Swallowing, Anorexia Musculoskeletal: COMPLAINS OF: Back pain, Neck pain Integumentary: DENIES: Abnormal pigmentation, Nail changes, Pruritus, Rash Hematologic/lymphatic: DENIES: Bruising, Lymphadenopathy Immunologic/allergic: DENIES: Eczema, Urticaria Neurologic: DENIES: Abnormal gait, Headache, Localized weakness, Paresthesias, Seizures, Speech Problems, Tremor, Poor Balance Psychiatric: COMPLAINS OF: Anxiety, Depression Objective Alert: Yes Derby Line: Person, Place, Date, Situation Mood: Angry Affect: Labile Memory Intact: Immediate, Recent, Remote Hallucinations: Other (none) Delusions: No Delusion Type: Other (none) Suicidal: Ideation (He denies SI) Homicidal: Ideation (He denies HI) Insight/Judgement Fair Labs Test 04/07/16 20:26 Lactate Dehydrogenase 196 U/L Tumor Marker Alpha Fetoprotein 1.6 NG/ML Tumor Marker HCG LESS THAN 1 MIU/ML Vitals/IOs Vital Signs Date Time Temp Pulse Resp B/P Pulse Ox O2 Delivery O2 Flow Rate FiO2 04/08/16 10:01 18 04/08/16 08:15 97.8 72 107/63 99 04/06/16 07:34 21 Intake and Output 04/07/16 04/07/16 04/08/16 08:00 16:00 00:00 Intake Total 720 ml Balance 720 ml Assessment & Plan Problem List: (1) Adjustment disorder with mixed anxiety and depressed mood Assessment & Plan: Patient reports increased anxiety and depression in the context of "undertreated pain" and secondary to his current medical condition. He denies suicidal ideation, he denies visual and auditory hallucinations. Patient is oriented 3, no confusion, no delirium, no memory problems. He is irritable and demanding. Will increase citalopram to 20 mg daily for depression and will increase Seroquel to 150 minute one at bedtime to help with depression, impulse control and sleep. Brief supportive psychotherapy provided. ICD Code: F43.23 Assessment & Plan Estimated LOS: days Justification for Cont. Inpt. Patient does not meet criteria for psychiatric admission at this moment Deepak Reilly MD Apr 08, 2016 12:20
[2016-04-08] MEDS: MAGNESIUM HYDROXIDE SUSP 30 ML CUP PO PRN (13:01)
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
[2016-04-08 16:15] VITALS: RESP 18
[2016-04-08] MEDS ORDERED: QUEtiapine FUMARATE 100 MG TAB PO SCH (21:00)
[2016-04-08] MEDS ORDERED: REMOVE OLD DURAGESIC (FENTANYL) PATCH TD SCH (21:00)
[2016-04-09] MEDS ORDERED: CITALOPRAM HYDROBROMIDE 20 MG TAB PO SCH (09:00)
[2016-04-09] MEDS ORDERED: OXYC1CAP PO (11:22)
[2016-04-27] MEDS ORDERED: TRAM50TA PO (13:10)
== END 2016-04-08 16:34 | disposition home or self-care (01) | DRG 455 ==
LOC: NEPI 12:57 → NEDA 14:09 → EDBD 14:09 → N03A 14:20 → N06A 03-14 06:15 → N03A 03-22 04:10 → N05B 03-24 16:33
PROVIDERS: ADMIT Surgery; ATTEND Surgery
PROC: 05H633Z Insertion of Infusion Device into Left Subclavian Vein, Percutaneous Approach (ICD-10-PCS; 2016-03-12)
PROC: 0RB30ZZ Excision of Cervical Vertebral Disc, Open Approach (ICD-10-PCS; 2016-03-17)
PROC: 4A11X4G Monitoring of Peripheral Nervous Electrical Activity, Intraoperative, External Approach (ICD-10-PCS; 2016-03-17)
PROC: 0RG10A0 Fusion of Cervical Vertebral Joint with Interbody Fusion Device, Anterior Approach, Anterior Column, Open Approach (ICD-10-PCS; principal; 2016-03-17 11:51)
PROC: 0DJD8ZZ Inspection of Lower Intestinal Tract, Via Natural or Artificial Opening Endoscopic (ICD-10-PCS; 2016-03-21)
PROC: 0RG1071 Fusion of Cervical Vertebral Joint with Autologous Tissue Substitute, Posterior Approach, Posterior Column, Open Approach (ICD-10-PCS; 2016-03-23)
PROC: 0PS304Z Reposition Cervical Vertebra with Internal Fixation Device, Open Approach (ICD-10-PCS; 2016-03-23)
PROC: 0QB20ZZ Excision of Right Pelvic Bone, Open Approach (ICD-10-PCS; 2016-03-23)
PROC: 2W60X0Z Traction of Head using Traction Apparatus (ICD-10-PCS; 2016-03-23)
PROC: 4A11X4G Monitoring of Peripheral Nervous Electrical Activity, Intraoperative, External Approach (ICD-10-PCS; 2016-03-23)
PROC: 0DJD8ZZ Inspection of Lower Intestinal Tract, Via Natural or Artificial Opening Endoscopic (ICD-10-PCS; 2016-04-05)
PROC: 0KB Muscles, Excision (ICD-10-PCS; 2016-04-07)
DX: S12.501A Unspecified nondisplaced fracture of sixth cervical vertebra, initial encounter for closed fracture (principal); M50.223 Other cervical disc displacement at C6-C7 level; S06.0X0A Concussion without loss of consciousness, initial encounter; S14.126A Central cord syndrome at C6 level of cervical spinal cord, initial encounter; S14.127A Central cord syndrome at C7 level of cervical spinal cord, initial encounter; S12.601A Unspecified nondisplaced fracture of seventh cervical vertebra, initial encounter for closed fracture; M54.12 Radiculopathy, cervical region; F10.929 Alcohol use, unspecified with intoxication, unspecified; K64.4 Residual hemorrhoidal skin tags; K64.8 Other hemorrhoids; K08.89 Other specified disorders of teeth and supporting structures; F43.23 Adjustment disorder with mixed anxiety and depressed mood; R19.09 Other intra-abdominal and pelvic swelling, mass and lump; Y90.8 Blood alcohol level of 240 mg/100 ml or more; K59.00 Constipation, unspecified; F17.210 Nicotine dependence, cigarettes, uncomplicated; V49.9XXA Car occupant (driver) (passenger) injured in unspecified traffic accident, initial encounter; Y92.410 Unspecified street and highway as the place of occurrence of the external cause
CPT/HCPCS: 36556; 49180; 70450; 71010; 71260; 72020; 72040; 72125; 72141; 72170; 73080; 73110; 74177; 76000; 76937; 77012; 80048; 80053; 80307; 80320; 82105; 82378; 82435; 82565; 82947; 83615; 83735; 84100; 84132; 84295; 84520; 84702; 85007; 85025; 85027; 85610; 85730; 86850; 86900; 86901; 87641; 88305; 88307; 88341; 88342; 90715; 93005; 93306; 93970; 94150; 96374; 96375; 99151; 99153; 99291; C1713; C9113; C9399; G0390; J0131; J0171; J0461; J0690; J1100; J1170; J1580; J1644; J1885; J2060; J2175; J2212; J2250; J2270; J2370; J2405; J2710; J3010; J3370; J3410; J3411; J3480; J7030; J7040; J7050; J7120; J8540; L0150; L0172; L0810; Q9967

== ENCOUNTER 2016-04-12 14:25 | Inpatient (IN) | payer OTHER ==
[~2016-04-12] VITALS: Ht 182.9 cm; Wt 128.2 kg
[~2016-04-12 14:25] MED LIST: CYCL1TAB29 PO; DOCU1CAP39 PO; HOSP BED1; MILKSUS PO; OXYC-392 PO; OXYC1CAP PO; WALKER WHEELS/F1 MIS; WHEEMIS3
[2016-04-12 20:30] VITALS: BP 124/64; PULSE 61; RESP 20; TEMP 97.6; O2SAT 95
[2016-04-12] MEDS ORDERED: SODIUM CHLORIDE 0.9% FLUSH 5 ML FLUSH FLUSH PRN (20:45)
[2016-04-12] MEDS ORDERED: ONDANSETRON HCL 4 MG/2 ML VIAL IVP PRN (20:45)
[2016-04-12] MEDS ORDERED: NALOXONE HCL 0.4 MG/ML AMP IV PRN (20:45)
[2016-04-12] MEDS: SODIUM CHLORIDE 0.9% FLUSH 5 ML FLUSH FLUSH SCH (21:00)
[2016-04-12] MEDS: ACETAMINOPHEN/HYDROcodone 325 MG/5 MG TAB PO PRN (22:37)
[2016-04-12 23:46] LABS: HEMATOCRIT 39.9 % (39.0-51.0); MEAN CELL VOLUME 91.4 FL (80.0-100.0); MEAN CORPUSCULAR HEMOGLOBIN 30.6 PG (27.0-34.0); MEAN CORPUSCULAR HGB CONC 33.5 % (32.0-36.0); PLATELET COUNT 145 TH/MM3 (150-450); RED BLOOD COUNT 4.37 MIL/MM3 (4.50-5.90); RED CELL DISTRIBUTION WIDTH 13.6 % (11.6-17.2); REVIEW FLAG FINAL; WHITE BLOOD COUNT 9.5 TH/MM3 (4.0-11.0)
[2016-04-12 23:57] LABS: APTT (PATIENT) 33.3 SEC (24.3-30.1)
[2016-04-13] VITALS (8 sets, daily range): BP systolic 109–129; BP diastolic 51–71; PULSE 58–75; RESP 18–19; TEMP 96–97.7; O2SAT 95–99
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
[2016-04-13] MEDS: ACETAMINOPHEN/HYDROcodone 325 MG/5 MG TAB PO PRN (04:33)
[2016-04-13] MEDS ORDERED: MAGNESIUM HYDROXIDE SUSP 30 ML CUP PO PRN (05:00)
[2016-04-13] MEDS: HEPARIN-D5W INJ 250 ML IV SCH ×2 (05:42→18:25)
[2016-04-13] MEDS: MORPHINE SULFATE 4 MG/ML INJ IV PUSH PRN ×4 (05:47→20:23)
[2016-04-13] MEDS: SODIUM CHLORIDE 0.9% FLUSH 5 ML FLUSH FLUSH SCH ×2 (08:53→20:24)
[2016-04-13] MEDS: clonazePAM 1 MG TAB PO PRN (08:54)
[2016-04-13] MEDS: DOCUSATE SODIUM 100 MG CAP PO SCH ×2 (08:54→20:22)
[2016-04-13] MEDS: CYCLOBENZAPRINE HCL 10 MG TAB PO PRN ×2 (08:54→18:22)
[2016-04-13] MEDS: ACETAMINOPHEN/HYDROcodone 325 MG/10 MG TAB PO PRN ×4 (08:55→23:59)
[2016-04-13 09:39] LABS: APTT (PATIENT) 28.3 SEC (24.3-30.1)
[2016-04-13 09:46] LABS: BICARBONATE 20.7 MEQ/L (21.0-32.0)
[2016-04-13 09:52] LABS: AUTOMATED NEUTROPHIL # 7.2 TH/MM3 (1.8-7.7); EOSINOPHIL # 2.8 TH/MM3 (0-0.4); HEMATOCRIT 41.3 % (39.0-51.0); LYMPH % 7.7 % (9.0-44.0); LYMPHOCYTE # 0.9 TH/MM3 (1.0-4.8); MEAN CELL VOLUME 89.7 FL (80.0-100.0); MEAN CORPUSCULAR HEMOGLOBIN 30.6 PG (27.0-34.0); MEAN CORPUSCULAR HGB CONC 34.2 % (32.0-36.0); MONO % 2.8 % (0.0-8.0); NEUT % 64.5 % (16.0-70.0); PLATELET COUNT 119 TH/MM3 (150-450); RED BLOOD COUNT 4.61 MIL/MM3 (4.50-5.90); RED CELL DISTRIBUTION WIDTH 13.7 % (11.6-17.2); WHITE BLOOD COUNT 11.2 TH/MM3 (4.0-11.0)
[2016-04-13 09:53] LABS: HEMO FLAGS DIFF FINAL
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
--- NOTE | 2016-04-13 18:27 | RADRPT ---
EXAM DATE/TIME: 04/13/2016 17:30 [place] COMPARISON: CT CERVICAL SPINE W/O CONTRAST, March 22, 2016, 2:29. INDICATIONS : Right arm numbness. Evaluate surgical site. RADIATION DOSE: 30.13 CTDIvol (mGy) MEDICAL HISTORY : None SURGICAL HISTORY : Fusion, cervical. ENCOUNTER: Initial ACUITY: 1 day PAIN SCALE: 0/10 LOCATION: neck TECHNIQUE: Volumetric scanning of the cervical spine was performed. Multiplanar reconstructions in the sagittal, coronal and oblique axial planes were performed. Using automated exposure control and adjustment o f the mA and/or kV according to patient size, radiation dose was kept as low as reasonably achievable to obtain optimal diagnostic quality images. FINDINGS: Compared to the most recent evaluation the patient has undergone posterior fusion at the C6-7 level. The C6 and C7 spinous processes have been fixated with wire and bone graft has been applied along bot h sides of the spinous processes. The anterior subluxation of C6 and C7 has been almost completely re duced. There is very slight offset remaining. The appearance of the neural foramina at C6-7 is stable compared to the prior CT. There is no evidenc e of additional bony fragments within the neural foramen. Soft tissue abnormalities such as this mate rial or hematoma is less conspicuous T2 low soft tissue contrast and CT. No obvious epidural or neuro foraminal soft tissues identified. Evaluation of the posterior elements at C6-7 continue to demonstrate a perched facet on the right. Th e left facet joint remains subluxed without incompletely perched. Cervical spine is otherwise stable. CONCLUSION: Status post posterior fusion at C6-7 as described. Persistent perched right C6-7 facet and subluxed left C6-7 facet. Significant reduction of anterior subluxation of C6 on C7. No evidence of significant bony impingement of the central spinal canal or neural foramina. No apparent acute soft tissue abnormalities. Otherwise stable appearing cervical spine. Reagan Perez MD on April 13, 2016 at 18:13 Board Certified Radiologist. This report was verified electronically.
[2016-04-13 19:47] LABS: APTT (PATIENT) 29.3 SEC (24.3-30.1)
[2016-04-13] MEDS: QUEtiapine FUMARATE 100 MG TAB PO SCH (20:22)
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
[2016-04-14] VITALS (7 sets, daily range): BP systolic 95–130; BP diastolic 51–68; PULSE 63–89; RESP 18–20; TEMP 96.7–99; O2SAT 96–98
[2016-04-14] MEDS: MORPHINE SULFATE 4 MG/ML INJ IV PUSH PRN ×5 (02:50→22:34)
[2016-04-14 03:09] LABS: APTT (PATIENT) 25.6 SEC (24.3-30.1)
[2016-04-14] MEDS: ACETAMINOPHEN/HYDROcodone 325 MG/10 MG TAB PO PRN ×2 (06:20→11:00)
[2016-04-14] MEDS: DOCUSATE SODIUM 100 MG CAP PO SCH ×2 (08:50→21:22)
[2016-04-14] MEDS: SODIUM CHLORIDE 0.9% FLUSH 5 ML FLUSH FLUSH SCH ×2 (09:00→21:00)
[2016-04-14] MEDS: HEPARIN-D5W INJ 250 ML IV SCH ×2 (11:07→22:21)
[2016-04-14] MEDS: clonazePAM 1 MG TAB PO PRN ×2 (11:10→21:22)
--- NOTE | 2016-04-14 13:51 | HHI.PR ---
Subjective Remarks The patient said that he was complaining of neck pain. He stated he still had numbness and tingling down his right arm. He said certain medications were discontinued upon discharge which is why he thinks his pain returned. He was wondering about the abdominal mass results from the biopsy. He has been tolerating a diet. He is breathing comfortably. Discussed with nursing. He was looking for better pain control. He has not had a bowel movement. Objective Vitals Vital Signs Date Time Temp Pulse Resp B/P Pulse Ox O2 Delivery O2 Flow Rate FiO2 04/14/16 13:16 99.0 86 18 111/54 97 04/14/16 08:45 97.1 63 18 107/57 98 04/14/16 03:54 96.7 66 20 95/56 97 04/14/16 00:44 97.1 83 20 112/51 97 04/13/16 20:27 97.6 71 18 113/51 99 04/13/16 20:00 58 04/13/16 16:25 16 04/13/16 15:20 97.7 71 19 109/51 97 I/O 04/13/16 04/13/16 04/13/16 04/14/16 04/14/16 04/14/16 07:00 15:00 23:00 07:00 15:00 23:00 Intake Total 480 ml Output Total 400 ml 1 ml Balance -400 ml 479 ml Intake Oral 480 ml Output Urine Total 400 ml 1 ml # Voids 2 # Bowel Movements 0 Result Diagram: 04/13/16 0842 04/13/16 0842 Imaging Last Impressions Cervical Spine CT 04/13/16 0000 Signed Impressions: Service Date/Time: Wednesday, April 13, 2016 17:30 - CONCLUSION: Status post posterior fusion at C6-7 as described. Persistent perched right C6-7 facet and subluxed left C6-7 facet. Significant reduction of anterior subluxation of C6 on C7. No evidence of significant bony impingement of the central spinal canal or neural foramina. No apparent acute soft tissue abnormalities. Otherwise stable appearing cervical spine. Reagan Perez MD Objective Remarks GENERAL: This is a well-nourished, well-developed patient. SKIN: No rashes, ecchymoses or lesions. Cool and dry. Halo in place. HEAD: Atraumatic. Normocephalic. No temporal or scalp tenderness. EYES: Pupils equal round and reactive. Extraocular motions intact. ENT: Nose without bleeding, purulent drainage or septal hematoma. Airway patent. NECK: Trachea midline. No JVD or lymphadenopathy. CARDIOVASCULAR: Regular rate and rhythm without murmurs, gallops, or rubs. RESPIRATORY: Clear to auscultation. Breath sounds equal bilaterally. No wheezes , rales, or rhonchi. GASTROINTESTINAL: Abdomen soft, non-tender, nondistended. No hepato-splenomegaly , or palpable masses. No guarding. MUSCULOSKELETAL: Bilateral lower extremity edema. No joint tenderness, effusion , or edema noted. No calf tenderness. NEUROLOGICAL: Awake and alert. 4/5 strength right upper extremity, 5/5 elsewhere. Normal speech. PSYCH: Mood and affect appropriate. Medications and IVs Current Medications Medications (Trade) Dose Ordered Sig/Leo Route Start Time Stop Time Status Last Admin (NS Flush) 2 ml UNSCH PRN FLUSH 04/12/16 20:45 (NS Flush) 2 ml BID FLUSH 04/12/16 21:00 04/13/16 20:24 (Zofran Inj) 4 mg Q6H PRN IVP 04/12/16 20:45 Naloxone HCl 0.4 mg 0.4 mg UNSCH PRN IV 04/12/16 20:45 (Heparin-D5W Inj) 250 ml @ 0 mls/hr TITRATE IV 04/12/16 20:45 04/14/16 11:07 ([place] 5-325 Mg) 1 tab Q6H PRN PO 04/12/16 20:45 04/13/16 04:33 (Flexeril) 10 mg Q8H PRN PO 04/13/16 05:00 04/13/16 18:22 (Colace) 100 mg BID PO 04/13/16 09:00 04/14/16 08:50 (Milk Of Magnesia Liq) 30 ml Q6H PRN PO 04/13/16 05:00 ([place] 10-325 Mg) 1 tab Q4H PRN PO 04/13/16 05:00 04/14/16 11:00 (Morphine Inj) 2 mg Q3H PRN IV PUSH 04/13/16 05:00 04/14/16 13:07 (KlonoPIN) 1 mg Q8HR PRN PO 04/13/16 05:00 04/14/16 11:10 (SEROquel) 100 mg HS PO 04/13/16 21:00 04/13/16 20:22 A/P Problem List: (1) Numbness and tingling of right upper extremity ICD Code: R20.0 Status: Acute (2) DVT (deep venous thrombosis) ICD Code: I82.409 Status: Acute (3) Abdominal mass ICD Code: R19.00 Status: Acute Assessment and Plan Numbness and tingling of right upper extremity Neurosurgery consultation appreciated. CT cervical spine showed:Status post posterior fusion at C6-7; Persistent perched right C6-7 facet and subluxed left C6-7 facet; Significant reduction of anterior subluxation of C6 on C7; No evidence of significant bony impingement of the central spinal canal or neural foramina; No apparent acute soft tissue abnormalities' Otherwise stable appearing cervical spine. - pain control with a bowel regimen. Add Flexeril and gabapentin. - PT/OT. DVT Bilateral LE The pt recently had a prolonged hospitalization. - continue heparin drip. Abdominal mass Pathology report reveals likely leiomyoma. Oncology consult appreciated. - general surgery consult requested. Anxiety Stable. - continue patient's Klonopin and Seroquel. DVT prophylaxis: Heparin gtt. Discharge Planning Awaiting surgical eval. Fabricio Bender DO Apr 14, 2016 13:51
[2016-04-14] MEDS: SENNOSIDES 8.6 MG TAB PO SCH (15:10)
[2016-04-14] MEDS: GABAPENTIN 300 MG CAP PO SCH ×2 (15:10→18:06)
[2016-04-14 15:14] LABS: APTT (PATIENT) 33.5 SEC (24.3-30.1)
[2016-04-14] MEDS: QUEtiapine FUMARATE 100 MG TAB PO SCH (21:22)
[2016-04-14 22:01] LABS: APTT (PATIENT) 35.5 SEC (24.3-30.1)
[2016-04-15] VITALS (8 sets, daily range): BP systolic 98–134; BP diastolic 61–81; PULSE 64–81; RESP 16–20; TEMP 97–98.2; O2SAT 94–100
[2016-04-15 03:20] LABS: HEMATOCRIT 37.5 % (39.0-51.0); MEAN CORPUSCULAR HEMOGLOBIN 30.6 PG (27.0-34.0); MEAN CORPUSCULAR HGB CONC 33.3 % (32.0-36.0); PLATELET COUNT 123 TH/MM3 (150-450); RED BLOOD COUNT 4.07 MIL/MM3 (4.50-5.90); RED CELL DISTRIBUTION WIDTH 13.9 % (11.6-17.2); REVIEW FLAG FINAL; WHITE BLOOD COUNT 5.2 TH/MM3 (4.0-11.0)
[2016-04-15 03:29] LABS: BICARBONATE 24.8 MEQ/L (21.0-32.0); MAGNESIUM 1.9 MG/DL (1.5-2.5); POTASSIUM 3.9 MEQ/L (3.5-5.1)
[2016-04-15 03:39] LABS: APTT (PATIENT) 43.2 SEC (24.3-30.1)
[2016-04-15] MEDS: clonazePAM 1 MG TAB PO PRN ×2 (06:59→21:00)
[2016-04-15] MEDS: MORPHINE SULFATE 4 MG/ML INJ IV PUSH PRN ×4 (07:00→20:59)
[2016-04-15] MEDS: GABAPENTIN 300 MG CAP PO SCH ×3 (08:17→17:37)
[2016-04-15] MEDS: DOCUSATE SODIUM 100 MG CAP PO SCH ×2 (08:17→21:00)
[2016-04-15] MEDS: SENNOSIDES 8.6 MG TAB PO SCH (08:17)
[2016-04-15] MEDS: SODIUM CHLORIDE 0.9% FLUSH 5 ML FLUSH FLUSH SCH ×2 (08:18→21:00)
[2016-04-15] MEDS: HEPARIN-D5W INJ 250 ML IV SCH ×2 (10:29→20:56)
--- NOTE | 2016-04-15 10:50 | HHI.PR ---
Subjective Remarks The patient was sitting up in a chair. He was eating breakfast. He said that his pain control is better. He said he talked to the surgeon earlier today. He would prefer to have the surgery done as an inpatient. Nursing at the bedside. Objective Vitals Vital Signs Date Time Temp Pulse Resp B/P Pulse Ox O2 Delivery O2 Flow Rate FiO2 04/15/16 08:50 97.0 64 16 100/66 98 04/15/16 04:00 97.4 68 18 110/61 100 04/15/16 00:00 97.3 79 18 127/64 97 04/14/16 22:04 77 04/14/16 20:00 97.1 89 18 130/68 98 04/14/16 16:34 98.1 82 18 122/56 96 04/14/16 13:16 99.0 86 18 111/54 97 I/O 04/14/16 04/14/16 04/14/16 04/15/16 04/15/16 04/15/16 07:00 15:00 23:00 07:00 15:00 23:00 Intake Total 840 ml 890 ml Balance 840 ml 890 ml Intake Oral 840 ml 600 ml IV Total 290 ml # Voids 2 6 5 Result Diagram: 04/15/16 0257 04/15/16 0257 Imaging Last Impressions Cervical Spine CT 04/13/16 0000 Signed Impressions: Service Date/Time: Wednesday, April 13, 2016 17:30 - CONCLUSION: Status post posterior fusion at C6-7 as described. Persistent perched right C6-7 facet and subluxed left C6-7 facet. Significant reduction of anterior subluxation of C6 on C7. No evidence of significant bony impingement of the central spinal canal or neural foramina. No apparent acute soft tissue abnormalities. Otherwise stable appearing cervical spine. Reagan Perez MD Objective Remarks GENERAL: This is a well-nourished, well-developed patient. SKIN: No rashes, ecchymoses or lesions. Cool and dry. Halo in place. HEAD: Atraumatic. Normocephalic. No temporal or scalp tenderness. EYES: Pupils equal round and reactive. Extraocular motions intact. ENT: Nose without bleeding, purulent drainage or septal hematoma. Airway patent. NECK: Trachea midline. No JVD or lymphadenopathy. CARDIOVASCULAR: Regular rate and rhythm without murmurs, gallops, or rubs. RESPIRATORY: Clear to auscultation. Breath sounds equal bilaterally. No wheezes , rales, or rhonchi. GASTROINTESTINAL: Abdomen soft, non-tender, nondistended. No hepato-splenomegaly , or palpable masses. No guarding. MUSCULOSKELETAL: Bilateral lower extremity edema. No joint tenderness, effusion , or edema noted. No calf tenderness. NEUROLOGICAL: Awake and alert. 4/5 strength right upper extremity, 5/5 elsewhere. Normal speech. PSYCH: Mood and affect appropriate. Medications and IVs Current Medications Medications (Trade) Dose Ordered Sig/Leo Route Start Time Stop Time Status Last Admin (NS Flush) 2 ml UNSCH PRN FLUSH 04/12/16 20:45 (NS Flush) 2 ml BID FLUSH 04/12/16 21:00 04/15/16 08:18 (Zofran Inj) 4 mg Q6H PRN IVP 04/12/16 20:45 Naloxone HCl 0.4 mg 0.4 mg UNSCH PRN IV 04/12/16 20:45 (Heparin-D5W Inj) 250 ml @ 0 mls/hr TITRATE IV 04/12/16 20:45 04/15/16 10:29 (Flexeril) 10 mg Q8H PRN PO 04/13/16 05:00 04/13/16 18:22 (Colace) 100 mg BID PO 04/13/16 09:00 04/15/16 08:17 (Milk Of Magnesia Liq) 30 ml Q6H PRN PO 04/13/16 05:00 (KlonoPIN) 1 mg Q8HR PRN PO 04/13/16 05:00 04/15/16 06:59 (SEROquel) 100 mg HS PO 04/13/16 21:00 04/14/16 21:22 (Morphine Inj) 4 mg Q3H PRN IV PUSH 04/14/16 17:00 04/15/16 07:00 (Roxicodone) 5 mg Q4H PRN PO 04/14/16 14:30 (Roxicodone) 15 mg Q4H PRN PO 04/14/16 14:30 04/15/16 10:02 (Neurontin) 300 mg TID PO 04/14/16 14:30 04/15/16 08:17 (Senokot) 17.2 mg DAILY PO 04/14/16 14:30 04/15/16 08:17 A/P Problem List: (1) Numbness and tingling of right upper extremity ICD Code: R20.0 Status: Acute (2) DVT (deep venous thrombosis) ICD Code: I82.409 Status: Acute (3) Abdominal mass ICD Code: R19.00 Status: Acute Assessment and Plan Numbness and tingling of right upper extremity Neurosurgery consultation appreciated. CT cervical spine showed:Status post posterior fusion at C6-7; Persistent perched right C6-7 facet and subluxed left C6-7 facet; Significant reduction of anterior subluxation of C6 on C7; No evidence of significant bony impingement of the central spinal canal or neural foramina; No apparent acute soft tissue abnormalities; Otherwise stable appearing cervical spine. - pain control with a bowel regimen. Added Flexeril and gabapentin. - PT/OT. - follow up with neurosurgery. DVT Bilateral LE The pt recently had a prolonged hospitalization. - continue heparin drip. Abdominal mass Pathology report reveals likely leiomyoma. Oncology and surgical consults appreciated. - surgery to determine if excision will be inpatient or outpatient. Anxiety Stable mood. - continue patient's Klonopin and Seroquel. DVT prophylaxis: Heparin gtt. Discharge Planning Awaiting NS clearance, possible surgery. Fabricio Bender DO Apr 15, 2016 10:50
[2016-04-15 10:57] LABS: APTT (PATIENT) 29.4 SEC (24.3-30.1)
[2016-04-15] MEDS ORDERED: BACITRACIN TOP OINT 15 GM TUBE TOP PRN (18:00)
[2016-04-15 19:43] LABS: APTT (PATIENT) 44.1 SEC (24.3-30.1)
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
[2016-04-15] MEDS: QUEtiapine FUMARATE 100 MG TAB PO SCH (21:00)
[2016-04-16] VITALS (7 sets, daily range): BP systolic 97–120; BP diastolic 54–64; PULSE 61–79; RESP 18–20; TEMP 96.7–99.6; O2SAT 95–98
[2016-04-16 02:36] LABS: APTT (PATIENT) 48.4 SEC (24.3-30.1)
[2016-04-16] MEDS: clonazePAM 1 MG TAB PO PRN (06:40)
[2016-04-16] MEDS: SENNOSIDES 8.6 MG TAB PO SCH (08:36)
[2016-04-16] MEDS: GABAPENTIN 300 MG CAP PO SCH ×3 (08:36→16:38)
[2016-04-16] MEDS: DOCUSATE SODIUM 100 MG CAP PO SCH ×2 (08:36→20:35)
[2016-04-16] MEDS: MORPHINE SULFATE 4 MG/ML INJ IV PUSH PRN ×4 (08:37→20:35)
[2016-04-16] MEDS: SODIUM CHLORIDE 0.9% FLUSH 5 ML FLUSH FLUSH SCH ×2 (08:38→20:35)
[2016-04-16] MEDS: HEPARIN-D5W INJ 250 ML IV SCH ×2 (11:04→20:50)
[2016-04-16 12:54] LABS: APTT (PATIENT) 35.8 SEC (24.3-30.1)
--- NOTE | 2016-04-16 13:24 | HHI.PR ---
Subjective Remarks The patient was resting comfortably in bed. His pain was well-controlled. He wanted to know for the screws that should be tightened on his halo. No other acute complaints. Discussed with nursing. Objective Vitals Vital Signs Date Time Temp Pulse Resp B/P Pulse Ox O2 Delivery O2 Flow Rate FiO2 04/16/16 10:45 64 04/16/16 07:35 96.7 70 18 111/62 98 04/16/16 04:00 97.9 61 20 103/56 98 04/16/16 00:42 97.8 79 20 120/62 95 04/15/16 20:00 98.2 81 20 98/61 94 04/15/16 19:51 77 04/15/16 19:33 80 04/15/16 16:32 97.8 79 18 112/70 96 I/O 04/15/16 04/15/16 04/15/16 04/16/16 04/16/16 04/16/16 07:00 15:00 23:00 07:00 15:00 23:00 Intake Total 890 ml 960 ml 300 ml Balance 890 ml 960 ml 300 ml Intake Oral 600 ml 960 ml IV Total 290 ml 300 ml # Voids 5 4 1 1 Result Diagram: 04/15/16 0257 04/15/16 0257 Imaging Last Impressions Cervical Spine CT 04/13/16 0000 Signed Impressions: Service Date/Time: Wednesday, April 13, 2016 17:30 - CONCLUSION: Status post posterior fusion at C6-7 as described. Persistent perched right C6-7 facet and subluxed left C6-7 facet. Significant reduction of anterior subluxation of C6 on C7. No evidence of significant bony impingement of the central spinal canal or neural foramina. No apparent acute soft tissue abnormalities. Otherwise stable appearing cervical spine. Reagan Perez MD Objective Remarks GENERAL: This is a well-nourished, well-developed patient. SKIN: No rashes, ecchymoses or lesions. Cool and dry. Halo in place. HEAD: Atraumatic. Normocephalic. No temporal or scalp tenderness. EYES: Pupils equal round and reactive. Extraocular motions intact. ENT: Nose without bleeding, purulent drainage or septal hematoma. Airway patent. NECK: Trachea midline. No JVD or lymphadenopathy. CARDIOVASCULAR: Regular rate and rhythm without murmurs, gallops, or rubs. RESPIRATORY: Clear to auscultation. Breath sounds equal bilaterally. No wheezes , rales, or rhonchi. GASTROINTESTINAL: Abdomen soft, non-tender, nondistended. No hepato-splenomegaly , or palpable masses. No guarding. MUSCULOSKELETAL: Bilateral lower extremity edema. No joint tenderness, effusion , or edema noted. No calf tenderness. NEUROLOGICAL: Awake and alert. 4/5 strength right upper extremity, 5/5 elsewhere. Normal speech. PSYCH: Mood and affect appropriate. Medications and IVs Current Medications Medications (Trade) Dose Ordered Sig/Leo Route Start Time Stop Time Status Last Admin (NS Flush) 2 ml UNSCH PRN FLUSH 04/12/16 20:45 (NS Flush) 2 ml BID FLUSH 04/12/16 21:00 04/16/16 08:38 (Zofran Inj) 4 mg Q6H PRN IVP 04/12/16 20:45 Naloxone HCl 0.4 mg 0.4 mg UNSCH PRN IV 04/12/16 20:45 (Heparin-D5W Inj) 250 ml @ 0 mls/hr TITRATE IV 04/12/16 20:45 04/16/16 11:04 (Flexeril) 10 mg Q8H PRN PO 04/13/16 05:00 04/13/16 18:22 (Colace) 100 mg BID PO 04/13/16 09:00 04/16/16 08:36 (Milk Of Magnesia Liq) 30 ml Q6H PRN PO 04/13/16 05:00 (KlonoPIN) 1 mg Q8HR PRN PO 04/13/16 05:00 04/16/16 06:40 (SEROquel) 100 mg HS PO 04/13/16 21:00 04/15/16 21:00 (Morphine Inj) 4 mg Q3H PRN IV PUSH 04/14/16 17:00 04/16/16 12:33 (Roxicodone) 5 mg Q4H PRN PO 04/14/16 14:30 (Roxicodone) 15 mg Q4H PRN PO 04/14/16 14:30 04/16/16 10:33 (Neurontin) 300 mg TID PO 04/14/16 14:30 04/16/16 12:32 (Senokot) 17.2 mg DAILY PO 04/14/16 14:30 04/16/16 08:36 (Baciguent Oint) APPLY FOR PIN CARE UNSCH PRN TOP 04/15/16 18:00 A/P Problem List: (1) Numbness and tingling of right upper extremity ICD Code: R20.0 Status: Acute (2) DVT (deep venous thrombosis) ICD Code: I82.409 Status: Acute (3) Abdominal mass ICD Code: R19.00 Status: Acute Assessment and Plan Numbness and tingling of right upper extremity Neurosurgery consultation appreciated. CT cervical spine showed:Status post posterior fusion at C6-7; Persistent perched right C6-7 facet and subluxed left C6-7 facet; Significant reduction of anterior subluxation of C6 on C7; No evidence of significant bony impingement of the central spinal canal or neural foramina; No apparent acute soft tissue abnormalities; Otherwise stable appearing cervical spine. - pain control with a bowel regimen. Added Flexeril and gabapentin. - PT/OT. - follow up with neurosurgery. May nee to have halo tightened. DVT Bilateral LE The pt recently had a prolonged hospitalization. - continue heparin drip. Convert to PO at the time of discharge. Abdominal mass Pathology report reveals likely leiomyoma. Oncology and surgical consults appreciated. - surgery to determine if excision will be inpatient or outpatient. Anxiety Stable mood. - continue patient's Klonopin and Seroquel. DVT prophylaxis: Heparin gtt. Discharge Planning Awaiting NS and GS clearance. Fabricio eBnder DO Apr 16, 2016 13:24
[2016-04-16] MEDS: QUEtiapine FUMARATE 100 MG TAB PO SCH (20:35)
[2016-04-16 20:37] LABS: APTT (PATIENT) 47.6 SEC (24.3-30.1)
[2016-04-16] MEDS: CYCLOBENZAPRINE HCL 10 MG TAB PO PRN (22:36)
[2016-04-17] VITALS (8 sets, daily range): BP systolic 111–134; BP diastolic 54–80; PULSE 62–78; RESP 18–24; TEMP 97.8–98.5; O2SAT 95–98
[2016-04-17] MEDS: MORPHINE SULFATE 4 MG/ML INJ IV PUSH PRN ×6 (00:34→21:13)
[2016-04-17] MEDS: HEPARIN-D5W INJ 250 ML IV SCH ×2 (06:54→17:12)
[2016-04-17] MEDS: SENNOSIDES 8.6 MG TAB PO SCH (08:41)
[2016-04-17] MEDS: DOCUSATE SODIUM 100 MG CAP PO SCH ×2 (08:41→21:13)
[2016-04-17] MEDS: GABAPENTIN 300 MG CAP PO SCH ×3 (08:41→17:09)
[2016-04-17] MEDS: SODIUM CHLORIDE 0.9% FLUSH 5 ML FLUSH FLUSH SCH ×2 (08:43→21:14)
--- NOTE | 2016-04-17 10:44 | HHI.PR ---
Subjective Remarks The patient was resting comfortably in bed. Family at the bedside. He was complaining of a throbbing headache. He wanted to know if his halo needed to be tightened. Has been eating well. Discussed with nursing. Objective Vitals Vital Signs Date Time Temp Pulse Resp B/P Pulse Ox O2 Delivery O2 Flow Rate FiO2 04/17/16 10:07 64 04/17/16 07:58 98.2 64 18 129/69 97 04/17/16 04:00 97.8 62 20 117/56 95 04/17/16 00:00 97.9 78 24 116/54 97 04/16/16 22:00 74 04/16/16 20:00 99.6 76 18 109/64 98 04/16/16 16:03 97.9 77 20 97/54 04/16/16 10:45 64 I/O 04/16/16 04/16/16 04/16/16 04/17/16 04/17/16 04/17/16 07:00 15:00 23:00 07:00 15:00 23:00 Intake Total 300 ml 960 ml Balance 300 ml 960 ml Intake Oral 960 ml IV Total 300 ml # Voids 1 3 Result Diagram: 04/15/16 0257 04/15/16 0257 Imaging Last Impressions Cervical Spine CT 04/13/16 0000 Signed Impressions: Service Date/Time: Wednesday, April 13, 2016 17:30 - CONCLUSION: Status post posterior fusion at C6-7 as described. Persistent perched right C6-7 facet and subluxed left C6-7 facet. Significant reduction of anterior subluxation of C6 on C7. No evidence of significant bony impingement of the central spinal canal or neural foramina. No apparent acute soft tissue abnormalities. Otherwise stable appearing cervical spine. Reagan Perez MD Objective Remarks GENERAL: This is a well-nourished, well-developed patient. SKIN: No rashes, ecchymoses or lesions. Cool and dry. Halo in place. HEAD: Atraumatic. Normocephalic. No temporal or scalp tenderness. EYES: Pupils equal round and reactive. Extraocular motions intact. ENT: Nose without bleeding, purulent drainage or septal hematoma. Airway patent. NECK: Trachea midline. No JVD or lymphadenopathy. CARDIOVASCULAR: Regular rate and rhythm without murmurs, gallops, or rubs. RESPIRATORY: Clear to auscultation. Breath sounds equal bilaterally. No wheezes , rales, or rhonchi. GASTROINTESTINAL: Abdomen soft, non-tender, nondistended. No hepato-splenomegaly , or palpable masses. No guarding. MUSCULOSKELETAL: Bilateral lower extremity edema. No joint tenderness, effusion , or edema noted. No calf tenderness. NEUROLOGICAL: Awake and alert. 4/5 strength right upper extremity, 5/5 elsewhere. Normal speech. PSYCH: Mood and affect appropriate. Medications and IVs Current Medications Medications (Trade) Dose Ordered Sig/Leo Route Start Time Stop Time Status Last Admin (NS Flush) 2 ml UNSCH PRN FLUSH 04/12/16 20:45 (NS Flush) 2 ml BID FLUSH 04/12/16 21:00 04/17/16 08:43 (Zofran Inj) 4 mg Q6H PRN IVP 04/12/16 20:45 Naloxone HCl 0.4 mg 0.4 mg UNSCH PRN IV 04/12/16 20:45 (Heparin-D5W Inj) 250 ml @ 0 mls/hr TITRATE IV 04/12/16 20:45 04/17/16 06:54 (Flexeril) 10 mg Q8H PRN PO 04/13/16 05:00 04/16/16 22:36 (Colace) 100 mg BID PO 04/13/16 09:00 04/17/16 08:41 (Milk Of Magnesia Liq) 30 ml Q6H PRN PO 04/13/16 05:00 (KlonoPIN) 1 mg Q8HR PRN PO 04/13/16 05:00 04/16/16 06:40 (SEROquel) 100 mg HS PO 04/13/16 21:00 04/16/16 20:35 (Morphine Inj) 4 mg Q3H PRN IV PUSH 04/14/16 17:00 04/17/16 08:42 (Roxicodone) 5 mg Q4H PRN PO 04/14/16 14:30 (Roxicodone) 15 mg Q4H PRN PO 04/14/16 14:30 04/17/16 06:50 (Neurontin) 300 mg TID PO 04/14/16 14:30 04/17/16 08:41 (Senokot) 17.2 mg DAILY PO 04/14/16 14:30 04/17/16 08:41 (Baciguent Oint) APPLY FOR PIN CARE UNSCH PRN TOP 04/15/16 18:00 A/P Problem List: (1) Numbness and tingling of right upper extremity ICD Code: R20.0 Status: Acute (2) DVT (deep venous thrombosis) ICD Code: I82.409 Status: Acute (3) Abdominal mass ICD Code: R19.00 Status: Acute Assessment and Plan Numbness and tingling of right upper extremity Neurosurgery consultation appreciated. CT cervical spine showed:Status post posterior fusion at C6-7; Persistent perched right C6-7 facet and subluxed left C6-7 facet; Significant reduction of anterior subluxation of C6 on C7; No evidence of significant bony impingement of the central spinal canal or neural foramina; No apparent acute soft tissue abnormalities; Otherwise stable appearing cervical spine. - pain control with a bowel regimen. Added Flexeril and gabapentin. Increase gabapentin 04/17. - PT/OT. - follow up with neurosurgery. May nee to have halo tightened. [employer] eval requested. DVT Bilateral LE The pt recently had a prolonged hospitalization. - continue heparin drip. Convert to PO at the time of discharge. Abdominal mass Pathology report reveals likely leiomyoma. Oncology and surgical consults appreciated. - surgery to determine if excision will be inpatient or outpatient. Anxiety Stable mood. - continue patient's Klonopin and Seroquel. DVT prophylaxis: Heparin gtt. Discharge Planning Awaiting NS and GS clearance. Fabricio Bender DO Apr 17, 2016 10:44
[2016-04-17] MEDS ORDERED: ACETAMIN 325 MG/BUTALBITAL 50 MG/CAFFEINE 40 MG TAB PO ONE (10:45)
[2016-04-17] MEDS: clonazePAM 1 MG TAB PO PRN (10:53)
--- NOTE | 2016-04-17 19:02 | HHI.NSPN ---
Exam Results Vital Signs Date Time Temp Pulse Resp B/P Pulse Ox O2 Delivery O2 Flow Rate FiO2 04/17/16 16:04 98.4 69 18 128/65 98 Intake and Output 04/16/16 04/16/16 04/17/16 08:00 16:00 00:00 Intake Total 300 ml 960 ml Balance 300 ml 960 ml Physical Examination Awake and alert Oriented 3 Speech clear and appropriate Complains of discomfort/migration right frontal halo pin site. There is slight migration of pin. Pin site check tenderness solid without motion. Patient complains of head tilted forward sent to the left with increased pressure at the cervical thoracic midline at the incision site. Incision healing well with alessia in place. No erythema or edema. Moderate tenderness. No drainage. Sensation intact light touch all extremities Strength within normal limits all extremities Stands ambulate without assistance Medical Decision Making Impression and Plan Impression: 1. Stable neurologic function following ACDF/Halo placement. Plan: halo adjusted. We will ask remote broadcast technician to recheck connections. Raúl Riojas MD Apr 17, 2016 19:01
[2016-04-17] MEDS: QUEtiapine FUMARATE 100 MG TAB PO SCH (21:13)
[2016-04-17] MEDS: CYCLOBENZAPRINE HCL 10 MG TAB PO PRN (23:04)
[2016-04-18] VITALS (8 sets, daily range): BP systolic 121–137; BP diastolic 64–71; PULSE 76–110; RESP 19–22; TEMP 97.3–98.6; O2SAT 94–98
[2016-04-18] MEDS: HEPARIN-D5W INJ 250 ML IV SCH ×2 (03:28→13:41)
[2016-04-18 08:51] LABS: APTT (PATIENT) 49.8 SEC (24.3-30.1)
[2016-04-18] MEDS: SENNOSIDES 8.6 MG TAB PO SCH (09:13)
[2016-04-18] MEDS: DOCUSATE SODIUM 100 MG CAP PO SCH ×2 (09:13→19:33)
[2016-04-18] MEDS: GABAPENTIN 300 MG CAP PO SCH ×3 (09:13→17:37)
[2016-04-18] MEDS: clonazePAM 1 MG TAB PO PRN (09:18)
[2016-04-18] MEDS: MORPHINE SULFATE 4 MG/ML INJ IV PUSH PRN ×4 (09:19→21:32)
--- NOTE | 2016-04-18 18:09 | HHI.PR ---
Subjective Remarks The patient states that the halo was tightened earlier today and it is now too tight and extremely painful. He is wondering if he could have loosened a little bit. He also wanted to know if he was going to have surgery for that abdominal mass. Discussed with nursing. Objective Vitals Vital Signs Date Time Temp Pulse Resp B/P Pulse Ox O2 Delivery O2 Flow Rate FiO2 04/18/16 16:14 98.6 77 22 128/64 98 04/18/16 12:23 98.2 76 22 132/68 97 04/18/16 08:19 98.5 79 22 121/65 94 04/18/16 07:00 77 04/18/16 04:00 97.3 102 19 137/71 94 04/18/16 00:56 98.6 88 20 121/70 97 04/17/16 23:00 70 04/17/16 20:00 98.3 77 20 134/80 95 I/O 04/17/16 04/17/16 04/17/16 04/18/16 04/18/16 04/18/16 07:00 15:00 23:00 07:00 15:00 23:00 Intake Total 1200 ml Balance 1200 ml Intake Oral 1200 ml # Voids 7 2 0 3 Result Diagram: 04/15/16 0257 04/15/16 0257 Imaging Last Impressions Cervical Spine CT 04/13/16 0000 Signed Impressions: Service Date/Time: Wednesday, April 13, 2016 17:30 - CONCLUSION: Status post posterior fusion at C6-7 as described. Persistent perched right C6-7 facet and subluxed left C6-7 facet. Significant reduction of anterior subluxation of C6 on C7. No evidence of significant bony impingement of the central spinal canal or neural foramina. No apparent acute soft tissue abnormalities. Otherwise stable appearing cervical spine. Reagan Perez MD Objective Remarks GENERAL: This is a well-nourished, well-developed patient. SKIN: No rashes, ecchymoses or lesions. Cool and dry. Halo in place. HEAD: Atraumatic. Normocephalic. No temporal or scalp tenderness. EYES: Pupils equal round and reactive. Extraocular motions intact. ENT: Nose without bleeding, purulent drainage or septal hematoma. Airway patent. NECK: Trachea midline. No JVD or lymphadenopathy. CARDIOVASCULAR: Regular rate and rhythm without murmurs, gallops, or rubs. RESPIRATORY: Clear to auscultation. Breath sounds equal bilaterally. No wheezes , rales, or rhonchi. GASTROINTESTINAL: Abdomen soft, non-tender, nondistended. No hepato-splenomegaly , or palpable masses. No guarding. MUSCULOSKELETAL: Bilateral lower extremity edema. No joint tenderness, effusion , or edema noted. No calf tenderness. NEUROLOGICAL: Awake and alert. 4/5 strength right upper extremity, 5/5 elsewhere. Normal speech. PSYCH: Mood and affect appropriate. Medications and IVs Current Medications Medications (Trade) Dose Ordered Sig/Leo Route Start Time Stop Time Status Last Admin (NS Flush) 2 ml UNSCH PRN FLUSH 04/12/16 20:45 (NS Flush) 2 ml BID FLUSH 04/12/16 21:00 04/17/16 21:14 (Zofran Inj) 4 mg Q6H PRN IVP 04/12/16 20:45 Naloxone HCl 0.4 mg 0.4 mg UNSCH PRN IV 04/12/16 20:45 (Heparin-D5W Inj) 250 ml @ 0 mls/hr TITRATE IV 04/12/16 20:45 04/18/16 13:41 (Flexeril) 10 mg Q8H PRN PO 04/13/16 05:00 04/17/16 23:04 (Colace) 100 mg BID PO 04/13/16 09:00 04/18/16 09:13 (Milk Of Magnesia Liq) 30 ml Q6H PRN PO 04/13/16 05:00 (KlonoPIN) 1 mg Q8HR PRN PO 04/13/16 05:00 04/18/16 09:18 (SEROquel) 100 mg HS PO 04/13/16 21:00 04/17/16 21:13 (Morphine Inj) 4 mg Q3H PRN IV PUSH 04/14/16 17:00 04/18/16 17:39 (Roxicodone) 5 mg Q4H PRN PO 04/14/16 14:30 (Roxicodone) 15 mg Q4H PRN PO 04/14/16 14:30 04/18/16 15:14 (Senokot) 17.2 mg DAILY PO 04/14/16 14:30 04/18/16 09:13 (Baciguent Oint) APPLY FOR PIN CARE UNSCH PRN TOP 04/15/16 18:00 (Fioricet [id number]) 1 tab Q6H PRN PO 04/17/16 10:45 (Neurontin) 600 mg TID PO 04/17/16 13:00 04/18/16 17:37 A/P Problem List: (1) Numbness and tingling of right upper extremity ICD Code: R20.0 Status: Acute (2) DVT (deep venous thrombosis) ICD Code: I82.409 Status: Acute (3) Abdominal mass ICD Code: R19.00 Status: Acute Assessment and Plan Numbness and tingling of right upper extremity Neurosurgery consultation appreciated. CT cervical spine showed:Status post posterior fusion at C6-7; Persistent perched right C6-7 facet and subluxed left C6-7 facet; Significant reduction of anterior subluxation of C6 on C7; No evidence of significant bony impingement of the central spinal canal or neural foramina; No apparent acute soft tissue abnormalities; Otherwise stable appearing cervical spine. - pain control with a bowel regimen. Added Flexeril and gabapentin. Increased gabapentin 04/17. - PT/OT. - follow up with neurosurgery. Halo now too tight and the patient is in extreme pain. We'll request [employer] to loosen Halo if appropriate. DVT Bilateral LE The pt recently had a prolonged hospitalization. - continue heparin drip. Convert to PO at the time of discharge. Abdominal mass Pathology report reveals likely leiomyoma. Oncology and surgical consults appreciated. - surgery to determine if excision will be inpatient or outpatient. Likely outpatient. - Consider MRI for further information per surgery. Anxiety Stable mood. - continue patient's Klonopin and Seroquel. DVT prophylaxis: Heparin gtt. Discharge Planning Awaiting NS and GS clearance, Halo to be adjusted. Anticipate 1-2 days. Fabricio Bender DO Apr 18, 2016 18:09
[2016-04-18] MEDS ORDERED: POLYETHYLENE GLYCOL 17 GM PKG PO PRN (18:15)
[2016-04-18] MEDS: SODIUM CHLORIDE 0.9% FLUSH 5 ML FLUSH FLUSH SCH (19:32)
[2016-04-18] MEDS: QUEtiapine FUMARATE 100 MG TAB PO SCH (19:33)
[2016-04-19] VITALS (7 sets, daily range): BP systolic 102–129; BP diastolic 50–72; PULSE 64–84; RESP 16–20; TEMP 96.6–98.7; O2SAT 94–96
[2016-04-19] MEDS: HEPARIN-D5W INJ 250 ML IV SCH ×3 (00:14→20:42)
[2016-04-19] MEDS: MORPHINE SULFATE 4 MG/ML INJ IV PUSH PRN ×4 (05:24→22:09)
[2016-04-19] MEDS: clonazePAM 1 MG TAB PO PRN (07:34)
[2016-04-19] MEDS: GABAPENTIN 300 MG CAP PO SCH ×3 (07:35→18:00)
[2016-04-19] MEDS: DOCUSATE SODIUM 100 MG CAP PO SCH ×2 (07:36→20:33)
[2016-04-19] MEDS: SENNOSIDES 8.6 MG TAB PO SCH (07:36)
[2016-04-19] MEDS: SODIUM CHLORIDE 0.9% FLUSH 5 ML FLUSH FLUSH SCH ×2 (09:00→20:35)
[2016-04-19 10:37] LABS: HEMATOCRIT 37.6 % (39.0-51.0); MEAN CELL VOLUME 90.8 FL (80.0-100.0); MEAN CORPUSCULAR HEMOGLOBIN 30.8 PG (27.0-34.0); MEAN CORPUSCULAR HGB CONC 33.9 % (32.0-36.0); PLATELET COUNT 145 TH/MM3 (150-450); RED BLOOD COUNT 4.15 MIL/MM3 (4.50-5.90); RED CELL DISTRIBUTION WIDTH 13.3 % (11.6-17.2); REVIEW FLAG FINAL; WHITE BLOOD COUNT 4.6 TH/MM3 (4.0-11.0)
--- NOTE | 2016-04-19 10:57 | HHI.PR ---
Subjective Remarks Patient in nad. Says halo was readjusted however thinmks needs to be readjusted again. No fever or chills. no n/v/d/c. Denies chest pain or sob. No change in vision. Ambulates. Pain is controlled by meds. Objective Vitals Vital Signs Date Time Temp Pulse Resp B/P Pulse Ox O2 Delivery O2 Flow Rate FiO2 04/19/16 08:09 96.8 64 20 120/71 96 04/19/16 07:00 66 04/19/16 05:18 97.4 66 20 118/72 96 04/19/16 00:00 96.6 70 16 102/50 94 04/18/16 20:40 98.1 78 20 135/67 97 04/18/16 19:03 110 04/18/16 16:14 98.6 77 22 128/64 98 04/18/16 12:23 98.2 76 22 132/68 97 I/O 04/18/16 04/18/16 04/18/16 04/19/16 04/19/16 04/19/16 07:00 15:00 23:00 07:00 15:00 23:00 Intake Total 720 ml Balance 720 ml Intake Oral 720 ml # Voids 0 3 1 1 # Bowel Movements 0 0 Result Diagram: 04/19/16 1011 04/15/16 0257 Imaging Last Impressions Cervical Spine CT 04/13/16 0000 Signed Impressions: Service Date/Time: Wednesday, April 13, 2016 17:30 - CONCLUSION: Status post posterior fusion at C6-7 as described. Persistent perched right C6-7 facet and subluxed left C6-7 facet. Significant reduction of anterior subluxation of C6 on C7. No evidence of significant bony impingement of the central spinal canal or neural foramina. No apparent acute soft tissue abnormalities. Otherwise stable appearing cervical spine. Reagan Perez MD Objective Remarks GENERAL: This is a young 30 yo M, well-nourished, well-developed patient. SKIN: No rashes, ecchymoses or lesions. Cool and dry. Halo in place. HEAD: Atraumatic. Normocephalic. No temporal or scalp tenderness. EYES: Pupils equal round and reactive. Extraocular motions intact. ENT: Nose without bleeding, purulent drainage or septal hematoma. Airway patent. NECK: Trachea midline. No JVD or lymphadenopathy. CARDIOVASCULAR: Regular rate and rhythm without murmurs, gallops, or rubs. RESPIRATORY: Clear to auscultation. Breath sounds equal bilaterally. No wheezes , rales, or rhonchi. GASTROINTESTINAL: Abdomen soft, non-tender, nondistended. No hepato-splenomegaly , or palpable masses. No guarding. MUSCULOSKELETAL: Bilateral lower extremity edema. No joint tenderness, effusion , or edema noted. No calf tenderness. NEUROLOGICAL: Awake and alert. 4/5 strength right upper extremity, 5/5 elsewhere. Normal speech. PSYCH: Mood and affect appropriate. A/P Problem List: (1) Numbness and tingling of right upper extremity ICD Code: R20.0 Status: Acute (2) DVT (deep venous thrombosis) ICD Code: I82.409 Status: Acute (3) Abdominal mass ICD Code: R19.00 Status: Acute Assessment and Plan Numbness and tingling of right upper extremity Neurosurgery consultation appreciated. CT cervical spine showed:Status post posterior fusion at C6-7; Persistent perched right C6-7 facet and subluxed left C6-7 facet; Significant reduction of anterior subluxation of C6 on C7; No evidence of significant bony impingement of the central spinal canal or neural foramina; No apparent acute soft tissue abnormalities; Otherwise stable appearing cervical spine. - pain control with a bowel regimen. Added Flexeril and gabapentin. Increased gabapentin 3/5. - PT/OT. - follow up with neurosurgery. Halo now too tight and the patient is in extreme pain. [employer] to loosen Halo if appropriate. DVT Bilateral LE The pt recently had a prolonged hospitalization. - continue heparin drip. Convert to PO at the time of discharge. Abdominal mass, leyomyoma,. Hem/onc recommends GS consult, and case will be discussed at the oncological tumor board. Pathology report reveals likely leiomyoma. Oncology and surgical consults appreciated. - surgery to determine if excision will be inpatient or outpatient. Likely outpatient. - Consider MRI for further information per surgery. Anxiety Stable mood. - continue patient's Klonopin and Seroquel. DVT prophylaxis: Heparin gtt. Discharge Planning Awaiting NS and GS clearance. Halo to be adjusted. CM consult for Dc plan. Nicole Jansen MD Apr 19, 2016 10:57
[2016-04-19 11:04] LABS: BICARBONATE 29.2 MEQ/L (21.0-32.0); MAGNESIUM 2.1 MG/DL (1.5-2.5); POTASSIUM 3.9 MEQ/L (3.5-5.1)
[2016-04-19 11:56] LABS: APTT (PATIENT) 38.7 SEC (24.3-30.1)
[2016-04-19] MEDS: QUEtiapine FUMARATE 100 MG TAB PO SCH (20:33)
[2016-04-19] MEDS: CYCLOBENZAPRINE HCL 10 MG TAB PO PRN (20:49)
--- NOTE | 2016-04-19 21:29 | HHI.PR ---
Subjective Subjective Notes pt stable overnight Objective Vitals/I&O Vital Signs Date Time Temp Pulse Resp B/P Pulse Ox O2 Delivery O2 Flow Rate FiO2 04/19/16 16:02 97.1 84 20 120/56 96 Labs Laboratory Tests Test 04/19/16 04/19/16 10:11 11:30 White Blood Count 4.6 Red Blood Count 4.15 Hemoglobin 12.8 Hematocrit 37.6 Mean Corpuscular Volume 90.8 Mean Corpuscular Hemoglobin 30.8 Mean Corpuscular Hemoglobin 33.9 Concent Red Cell Distribution Width 13.3 Platelet Count 145 Mean Platelet Volume 7.7 Sodium Level 140 Potassium Level 3.9 Chloride Level 102 Carbon Dioxide Level 29.2 Anion Gap 9 Blood Urea Nitrogen 16 Creatinine 1.00 Estimat Glomerular Filtration 89 Rate Random Glucose 104 Calcium Level 9.4 Magnesium Level 2.1 Activated Partial 38.7 Thromboplast Time Date/Time Procedure Status Source Growth 04/14/16 22:30 Stool Occult Blood ([facility]) - Final Complete Stool Stool HEMOCCULT NEGATIVE Abdomen: Other (soft mild ttp, right sided mass) A/P Assessment and Plan incidental large abdominal mass concern for leiomyoma PLAN Ok to d/c from [facility].S[facility] stand point pt to f/u with Dr. Nava- surgical oncology in 2 weeks Carson Phelps MD Apr 19, 2016 21:29
[2016-04-19] MEDS: ACETAMIN 325 MG/BUTALBITAL 50 MG/CAFFEINE 40 MG TAB PO PRN (22:11)
[2016-04-19 22:16] LABS: APTT (PATIENT) 44.8 SEC (24.3-30.1)
[2016-04-20] VITALS: BP 127/59; PULSE 73; RESP 18; TEMP 97.2; O2SAT 95
[2016-04-20 01:29] VITALS: PULSE 77
[2016-04-20] MEDS: MORPHINE SULFATE 4 MG/ML INJ IV PUSH PRN ×3 (03:41→13:36)
[2016-04-20 04:00] VITALS: BP 105/51; PULSE 68; RESP 18; TEMP 97.4; O2SAT 94
[2016-04-20 04:04] LABS: APTT (PATIENT) 54.8 SEC (24.3-30.1)
[2016-04-20] MEDS: clonazePAM 1 MG TAB PO PRN (06:06)
[2016-04-20] MEDS: ACETAMIN 325 MG/BUTALBITAL 50 MG/CAFFEINE 40 MG TAB PO PRN (06:08)
[2016-04-20] MEDS: HEPARIN-D5W INJ 250 ML IV SCH (06:10)
[2016-04-20 08:14] VITALS: BP 123/60; PULSE 69; RESP 20; TEMP 96.7; O2SAT 95
[2016-04-20] MEDS: CYCLOBENZAPRINE HCL 10 MG TAB PO PRN (08:28)
[2016-04-20] MEDS: SENNOSIDES 8.6 MG TAB PO SCH (08:29)
[2016-04-20] MEDS: GABAPENTIN 300 MG CAP PO SCH ×2 (08:29→13:36)
[2016-04-20] MEDS: SODIUM CHLORIDE 0.9% FLUSH 5 ML FLUSH FLUSH SCH (08:29)
[2016-04-20] MEDS: DOCUSATE SODIUM 100 MG CAP PO SCH (08:29)
[2016-04-20 08:30] VITALS: PULSE 66
[2016-04-20] MEDS ORDERED: OXYC-392 PO (09:54)
[2016-04-20] MEDS ORDERED: CYCL1TAB29 PO (09:54)
--- NOTE | 2016-04-20 11:06 | HHI.PR ---
Subjective Remarks Says he wants to go home. However he say he wants pain meds at discharge as pain is not controlled. Denies n/v/d/c/. Says he has less numbness. No fever or chills. Objective Vitals Vital Signs Date Time Temp Pulse Resp B/P Pulse Ox O2 Delivery O2 Flow Rate FiO2 04/20/16 08:35 20 04/20/16 08:30 66 04/20/16 08:14 96.7 69 20 123/60 95 04/20/16 07:11 20 04/20/16 07:11 20 04/20/16 04:00 97.4 68 18 105/51 94 04/20/16 01:29 77 04/20/16 00:00 97.2 73 18 127/59 95 04/19/16 20:00 97.4 78 18 120/56 95 04/19/16 16:02 97.1 84 20 120/56 96 04/19/16 12:04 98.7 83 20 129/58 95 I/O 04/19/16 04/19/16 04/19/16 04/20/16 04/20/16 04/20/16 07:00 15:00 23:00 07:00 15:00 23:00 Intake Total 940 ml 850 ml 480 ml Balance 940 ml 850 ml 480 ml Intake Oral 940 ml 850 ml 480 ml # Voids 1 5 5 3 # Bowel Movements 0 1 Result Diagram: 04/19/16 1011 04/19/16 1011 Imaging Last Impressions Cervical Spine CT 04/13/16 0000 Signed Impressions: Service Date/Time: Wednesday, April 13, 2016 17:30 - CONCLUSION: Status post posterior fusion at C6-7 as described. Persistent perched right C6-7 facet and subluxed left C6-7 facet. Significant reduction of anterior subluxation of C6 on C7. No evidence of significant bony impingement of the central spinal canal or neural foramina. No apparent acute soft tissue abnormalities. Otherwise stable appearing cervical spine. Reagan Perez MD Objective Remarks GENERAL: This is a young 30 yo M, well-nourished, well-developed patient. SKIN: No rashes, ecchymoses or lesions. Cool and dry. Halo in place. HEAD: Atraumatic. Normocephalic. No temporal or scalp tenderness. EYES: Pupils equal round and reactive. Extraocular motions intact. ENT: Nose without bleeding, purulent drainage or septal hematoma. Airway patent. NECK: Trachea midline. No JVD or lymphadenopathy. CARDIOVASCULAR: Regular rate and rhythm without murmurs, gallops, or rubs. RESPIRATORY: Clear to auscultation. Breath sounds equal bilaterally. No wheezes , rales, or rhonchi. GASTROINTESTINAL: Abdomen soft, non-tender, nondistended. No hepato-splenomegaly , or palpable masses. No guarding. MUSCULOSKELETAL: Bilateral lower extremity edema. No joint tenderness, effusion , or edema noted. No calf tenderness. NEUROLOGICAL: Awake and alert. 4/5 strength right upper extremity, 5/5 elsewhere. Normal speech. PSYCH: Mood and affect appropriate. A/P Problem List: (1) Numbness and tingling of right upper extremity ICD Code: R20.0 Status: Acute (2) DVT (deep venous thrombosis) ICD Code: I82.409 Status: Acute (3) Abdominal mass ICD Code: R19.00 Status: Acute Assessment and Plan Numbness and tingling of right upper extremity Neurosurgery consultation appreciated. CT cervical spine showed:Status post posterior fusion at C6-7; Persistent perched right C6-7 facet and subluxed left C6-7 facet; Significant reduction of anterior subluxation of C6 on C7; No evidence of significant bony impingement of the central spinal canal or neural foramina; No apparent acute soft tissue abnormalities; Otherwise stable appearing cervical spine. - pain control with a bowel regimen. Added Flexeril and gabapentin. Increased gabapentin 3/5. - PT/OT. - follow up with neurosurgery. Halo now too tight and the patient is in extreme pain. Orthotec to loosen Halo if appropriate. DVT Bilateral LE The pt recently had a prolonged hospitalization. - continue heparin drip. Convert to PO at the time of discharge. Abdominal mass, leyomyoma,. Hem/onc recommends GS consult, and case will be discussed at the oncological tumor board. Pathology report reveals likely leiomyoma. Oncology and surgical consults appreciated. - surgery to determine if excision will be inpatient or outpatient. Patient to see Dr Nava onco-surgeon as outpatient. - Consider MRI for further information per surgery. Anxiety Stable mood. - continue patient's Klonopin and Seroquel. DVT prophylaxis: Heparin gtt. Discharge Planning Awaiting NS and GS clearance. Halo to be adjusted. CM consult for Dc plan. OT and PT doesn't recommend follow up . Patient can be DC home when cleared by neurosurgery. To follow up as OP with PCP and consultants. Nicole Jansen MD Apr 20, 2016 11:06
[2016-04-20] MEDS ORDERED: NEUR300C PO (11:07)
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
[2016-04-20] MEDS ORDERED: XARE20TA PO (11:14)
[2016-04-20] MEDS ORDERED: XARE15TA PO (11:14)
[2016-04-20 12:00] VITALS: BP 135/63; PULSE 71; RESP 16; TEMP 97.7; O2SAT 97
[2016-04-27] MEDS ORDERED: TRAM50TA PO (13:10)
== END 2016-04-20 14:15 | disposition home or self-care (01) | DRG 949 ==
LOC: N05B 14:25
PROVIDERS: ADMIT Hospitalist; ATTEND Hospitalist
DX: T85.848A Pain due to other internal prosthetic devices, implants and grafts, initial encounter (principal); I82.409 Acute embolism and thrombosis of unspecified deep veins of unspecified lower extremity; M79.601 Pain in right arm; D21.9 Benign neoplasm of connective and other soft tissue, unspecified; F41.9 Anxiety disorder, unspecified; R20.0 Anesthesia of skin; Z98.1 Arthrodesis status; F10.10 Alcohol abuse, uncomplicated; F17.200 Nicotine dependence, unspecified, uncomplicated; Z80.42 Family history of malignant neoplasm of prostate; Z80.1 Family history of malignant neoplasm of trachea, bronchus and lung; Z86.718 Personal history of other venous thrombosis and embolism; Z79.01 Long term (current) use of anticoagulants; S12.9XXD Fracture of neck, unspecified, subsequent encounter; V89.2XXD Person injured in unspecified motor-vehicle accident, traffic, subsequent encounter; Y79.3 Surgical instruments, materials and orthopedic devices (including sutures) associated with adverse incidents; Y92.009 Unspecified place in unspecified non-institutional (private) residence as the place of occurrence of the external cause; Y83.8 Other surgical procedures as the cause of abnormal reaction of the patient, or of later complication, without mention of misadventure at the time of the procedure
CPT/HCPCS: 72125; 80048; 82272; 83735; 85025; 85027; 85610; 85730; 94150; J1644; J2270

== ENCOUNTER 2016-05-06 13:19 | Emergency (ER) | payer OTHER ==
[~2016-05-06] VITALS: Ht 180.3 cm; Wt 115.0 kg
[~2016-05-06 13:19] MED LIST changes: +NEUR300C PO; -OXYC1CAP PO; +TRAM50TA PO; +XARE15TA PO; +XARE20TA PO
[2016-05-06 13:20] VITALS: BP 133/82; PULSE 89; RESP 17; TEMP 98.4; O2SAT 98
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
[2016-05-06 16:15] VITALS: RESP 18; O2SAT 97
[2016-05-06] MEDS ORDERED: ONDANSETRON HCL 4 MG/2 ML VIAL IVP ONE (16:15)
[2016-05-06] MEDS ORDERED: SODIUM CHLORIDE 0.9% FLUSH 10 ML FLUSH IV FLUSH PRN ×2 (16:15→19:00)
[2016-05-06] MEDS ORDERED: MORPHINE SULFATE 4 MG/ML INJ IV PUSH ONE (16:15)
--- NOTE | 2016-05-06 16:29 | RADRPT ---
EXAM DATE/TIME: 05/06/2016 16:13 [facility] COMPARISON: CT CERVICAL SPINE W/O CONTRAST, March 22, 2016, 2:29. CHEST SINGLE AP, March 14, 2016, 4:40. INDICATIONS : Cough, SOB MEDICAL HISTORY : None. Swelling in legs. SURGICAL HISTORY : Cervical. ENCOUNTER: Initial ACUITY: 1 day PAIN SCORE: 0/10 LOCATION: chest FINDINGS: A single view of the chest demonstrates the lungs to be symmetrically aerated without evidence of mas s, infiltrate or effusion. The cardiomediastinal contours are unremarkable. Osseous structures are intact. Halo device is noted. CONCLUSION: No acute disease. Mario Mast MD on May 06, 2016 at 16:26 Board Certified Radiologist. This report was verified electronically.
[2016-05-06 17:15] LABS: AUTOMATED NEUTROPHIL # 3.9 TH/MM3 (1.8-7.7); BASOPHIL % 0.4 % (0.0-2.0); EOSINOPHIL # 0.1 TH/MM3 (0-0.4); EOSINOPHIL % 1.4 % (0.0-4.0); HEMATOCRIT 40.6 % (39.0-51.0); HEMO FLAGS DIFF FINAL; LYMPH % 33.3 % (9.0-44.0); LYMPHOCYTE # 2.3 TH/MM3 (1.0-4.8); MEAN CELL VOLUME 87.5 FL (80.0-100.0); MEAN CORPUSCULAR HEMOGLOBIN 29.5 PG (27.0-34.0); MEAN CORPUSCULAR HGB CONC 33.7 % (32.0-36.0); MONO % 8.2 % (0.0-8.0); NEUT % 56.7 % (16.0-70.0); PLATELET COUNT 177 TH/MM3 (150-450); RED BLOOD COUNT 4.64 MIL/MM3 (4.50-5.90); RED CELL DISTRIBUTION WIDTH 13.2 % (11.6-17.2); WHITE BLOOD COUNT 6.9 TH/MM3 (4.0-11.0)
[2016-05-06 17:37] LABS: APTT (PATIENT) 32.8 SEC (24.3-30.1); INTERNATIONAL NORMALIZED RATIO 1.4 RATIO; PROTHROMBIN TIME - PATIENT 15.4 SEC (9.8-11.6)
--- NOTE | 2016-05-06 17:50 | RADRPT ---
EXAM DATE/TIME: 05/06/2016 17:09 [facility] COMPARISON: US LEG BILATERAL VENOUS DOPPLER, March 26, 2016, 21:07. INDICATIONS : Bilateral leg swelling and pain. MEDICAL HISTORY : Deep venous thrombosis. Cervical spine injury. IV drug and ETOH abuse. SURGICAL HISTORY : Cervical disectomy and fusion. ENCOUNTER: Subsequent ACUITY: 1 day PAIN SCORE: 4/10 LOCATION: Bilateral legs. TECHNIQUE: Venous ultrasound of the left and right leg was performed from the inguinal ligament to the proximal calf. Real-time, color Doppler and spectral tracing, compression and augmentation techniques were us ed. FINDINGS: RIGHT LEG: There is normal compressibility of the deep venous system from the inguinal region to the proximal ca lf. No echogenic clot is seen in the lumen of the common femoral, femoral, popliteal, and posterior tibial veins. There is a normal response of the venous system to proximal and distal augmentation an d respiration. Mildly prominent an isolated lymph node in the right groin area measures 2.8 x 0.7 x 1.6 cm and contains a fatty hilum. LEFT LEG: There is normal compressibility of the deep venous system from the inguinal region to the proximal ca lf. No echogenic clot is seen in the lumen of the common femoral, femoral, popliteal, and posterior tibial veins. There is a normal response of the venous system to proximal and distal augmentation an d respiration. CONCLUSION: 1. Prominent but likely reactive 2.8 x 0.7 x 1.6 cm lymph node in the right inguinal region. 2. Otherwise negative. No sonographic or Doppler findings of deep venous thrombosis. Andrew Hoffman MD on May 06, 2016 at 17:47 Board Certified Radiologist. This report was verified electronically.
[2016-05-06 17:58] VITALS: BP 120/81; PULSE 78; RESP 18; TEMP 97.8; O2SAT 99
[2016-05-06 18:17] LABS: ANION GAP 7 MEQ/L (5-15); AST (GOT) 8 U/L (15-37); BICARBONATE 28.4 MEQ/L (21.0-32.0); BLOOD UREA NITROGEN 16 MG/DL (7-18); CHLORIDE 106 MEQ/L (98-107); GLOMERULAR FILTRATION RATE 89 ML/MIN (>89); POTASSIUM 4.2 MEQ/L (3.5-5.1); SODIUM (NA) 141 MEQ/L (136-145)
[2016-05-06 18:20] LABS: ALKALINE PHOSPHATASE 56 U/L (45-117); ALT (GPT) 12 U/L (12-78); TOTAL BILIRUBIN ADULT 0.3 MG/DL (0.2-1.0)
[2016-05-06] MEDS ORDERED: MORPHINE SULFATE 4 MG/ML INJ IV PRN (19:00)
[2016-05-06] MEDS ORDERED: MAGNESIUM HYDROXIDE SUSP 30 ML CUP PO PRN (19:00)
[2016-05-06] MEDS ORDERED: NALOXONE HCL 0.4 MG/ML AMP IV PRN (19:00)
[2016-05-06] MEDS ORDERED: SENNOSIDES 8.6 MG TAB PO PRN (19:00)
[2016-05-06] MEDS ORDERED: CYCLOBENZAPRINE HCL 10 MG TAB PO PRN (19:00)
[2016-05-06] MEDS ORDERED: ONDANSETRON HCL 4 MG/2 ML VIAL IVP PRN (19:00)
[2016-05-06] MEDS ORDERED: traMADol HCL 50 MG TAB PO PRN (19:00)
[2016-05-06] MEDS ORDERED: BISACODYL 10 MG SUPP PR PRN (19:00)
[2016-05-06] MEDS ORDERED: ACETAMINOPHEN 325 MG TAB PO PRN (19:00)
[2016-05-06 19:13] VITALS: BP 112/62; PULSE 69; RESP 18; O2SAT 97
[2016-05-06] MEDS ORDERED: HYDR-3533 PO (19:31)
[2016-05-06] MEDS ORDERED: XARE15TA PO (19:31)
[2016-05-06] MEDS ORDERED: EXTR500C PO (19:31)
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
[2016-05-06] MEDS ORDERED: DOCUSATE SODIUM 100 MG CAP PO SCH (21:00)
[2016-05-06] MEDS ORDERED: SODIUM CHLORIDE 0.9% FLUSH 10 ML FLUSH IV FLUSH SCH (21:00)
[2016-05-07] MEDS ORDERED: GABAPENTIN 300 MG CAP PO SCH (09:00)
== END 2016-05-06 20:46 | disposition home or self-care (01) ==
LOC: NEPC 13:19
DX: S12.9XXS Fracture of neck, unspecified, sequela (principal); V89.2XXS Person injured in unspecified motor-vehicle accident, traffic, sequela; Z79.01 Long term (current) use of anticoagulants; Z72.0 Tobacco use
CPT/HCPCS: 71010; 80053; 85025; 85610; 85730; 93970; 96374; 96375; 99285; J2270; J2405

== ENCOUNTER → 2016-05-24 | Outpatient (CLI) | payer OTHER ==
[~2016-05-24] MED LIST changes: +BACT800T5 PO; -DOCU1CAP39 PO; +EXTR500C PO; -HOSP BED1; +HYDR-3533 PO; -MILKSUS PO; -WALKER WHEELS/F1 MIS; -WHEEMIS3
--- NOTE | 2016-05-24 11:44 | RADRPT ---
EXAM DATE/TIME: 05/24/2016 11:05 [facility] COMPARISON: CT CERVICAL SPINE W/O CONTRAST, April 13, 2016, 17:30. SPINE CERVICAL LTD (AP&LAT), March 28, 15:24. INDICATIONS : Evaluate post surgical instrumentation MEDICAL HISTORY : None. SURGICAL HISTORY : None. Cervical discectomy and fusion ENCOUNTER: Initial ACUITY: 1 day PAIN SCORE: 0/10 LOCATION: C-spine FINDINGS: There is no prevertebral soft tissue swelling. The patient is status post anterior cervical discectom y and intervertebral fusion hardware placement at C6-7. Cerclage wire fixation is seen across the spi nous processes at C6-7. There is normal alignment. CONCLUSION: Post surgical changes are identified. Tien Doe MD on May 24, 2016 at 11:41 Board Certified Radiologist. This report was verified electronically.
== END ==
LOC: HRAD 10:46
PROVIDERS: ATTEND Neurological Surgery
DX: S12.9XXA Fracture of neck, unspecified, initial encounter (principal); X58.XXXA Exposure to other specified factors, initial encounter
CPT/HCPCS: 72040

== ENCOUNTER 2016-05-31 00:53 | Emergency (ER) | payer SELFPAY ==
[~2016-05-31] VITALS: Ht 182.9 cm; Wt 115.0 kg
[~2016-05-31 00:53] MED LIST changes: -BACT800T5 PO
[2016-05-31 00:56] VITALS: BP 145/87; PULSE 76; RESP 16; TEMP 98.6; O2SAT 99
[2016-05-31] MEDS ORDERED: HYDR-3533 PO (09:49)
[2016-05-31] MEDS ORDERED: BACT800T5 PO (09:49)
== END 2016-05-31 03:00 | disposition left against medical advice (07) ==
LOC: NED 00:53
DX: T85.9XXA Unspecified complication of internal prosthetic device, implant and graft, initial encounter (principal)
CPT/HCPCS: 99281

== ENCOUNTER 2016-05-31 06:48 | Emergency (ER) | payer OTHER ==
[~2016-05-31] VITALS: Ht 180.3 cm; Wt 120.0 kg
[2016-05-31 07:02] VITALS: BP 150/90; PULSE 88; RESP 22; TEMP 98; O2SAT 96
[2016-05-31] MEDS: traMADol HCL 50 MG TAB PO ONE ×2 (07:25→07:30)
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
[2016-05-31] MEDS ORDERED: ACETAMINOPHEN/HYDROcodone 325 MG/5 MG TAB PO ONE (08:15)
[2016-05-31] MEDS ORDERED: HYDR-3533 PO (09:49)
[2016-05-31] MEDS ORDERED: BACT800T5 PO (09:49)
--- NOTE | 2016-05-31 10:04 | RADRPT ---
EXAM DATE/TIME: 05/31/2016 08:32 [facility] COMPARISON: No previous studies available for comparison. INDICATIONS : Pain from halo screws. MEDICAL HISTORY : Smoker. SURGICAL HISTORY : Fusion, cervical. ENCOUNTER: Initial ACUITY: 3 months PAIN SCORE: 7/10 LOCATION: Bilateral screws in frontal bone. FINDINGS: Examination performed in halo. Intracerebral screws at C6 and C7. There is normal alignment of the vertebral bodies of the cervical spine down to level of C6. Vertebral body height is maintained. Pr evertebral soft tissues are normal in thickness. Atlantoaxial articulation is intact. On the obliqu e views, the bony neural foramina are widely patent on the right side. The bony neural foramina are obscured on the left due to halo hardware. CONCLUSION: Normal alignment of vertebral bodies of the cervical spine. Seb Jarvis MD on May 31, 2016 at 10:01 Board Certified Radiologist. This report was verified electronically.
== END 2016-05-31 11:07 | disposition home or self-care (01) ==
LOC: NEPC 06:48
DX: T84.84XA Pain due to internal orthopedic prosthetic devices, implants and grafts, initial encounter (principal)
CPT/HCPCS: 72050; 99283; L0172